=== PATIENT | male | born 1950 | race Caucasian/White ===

== ENCOUNTER 2017-06-17 13:55 | Inpatient (IN) | payer MEDICARE ==
[2017-06-17 14:13] VITALS: BMI 39.1
[2017-06-17 15:02] LABS: BASO # 0.1 K/uL (0.0-0.2); EOS # 0.4 K/uL (0.0-0.7); EOS % 5.7 % (0.0-4.0); HEMATOCRIT 42.9 % (35.0-51.0); LYMPH # 1.6 K/uL (1.0-4.3); LYMPH % 23.2 % (20.0-40.0); MEAN CELL VOLUME 84.2 fL (80.0-94.0); MEAN CORPUSCULAR HEMOGLOBIN 27.9 pg (27.0-31.0); MEAN CORPUSCULAR HGB CONC 33.2 g/dL (33.0-37.0); MONO # 0.6 K/uL (0.0-0.8); MONO % 8.1 % (0.0-10.0); NRBC % 0.1 % (0.0-2.0); RED CELL DISTRIBUTION WIDTH 14.2 % (11.5-14.5); WHITE BLOOD COUNT 7.1 K/uL (4.8-10.8)
[2017-06-17 15:15] LABS: CHLORIDE 100 mmol/L (98-107); POTASSIUM 4.3 mmol/L (3.6-5.2); SODIUM 139 mmol/L (132-148)
[2017-06-17 15:17] LABS: ALB/GLOB RATIO 1.1 (1.0-2.1); ALKALINE PHOSPHATASE 80 U/L (38-126); AST/SGOT 21 U/L (17-59); BILIRUBIN,TOTAL 0.4 mg/dL (0.2-1.3); CARBON DIOXIDE 27 mmol/L (22-30); GFR AFRICAN-AMERICAN > 60; TOTAL PROTEIN 7.8 g/dL (6.3-8.3)
[2017-06-17 15:18] LABS: ALT/SGPT 41 U/L (21-72); BLOOD UREA NITROGEN 16 mg/dL (9-20); CALCIUM 9.1 mg/dl (8.6-10.4); GLUCOSE,RANDOM 92 mg/dL (75-110)
--- NOTE | 2017-06-17 16:19 | C.PDOC ---
History Of Present Illness 67-year-old male, PMHx includes CAD s/p 6 stents (last stent 4 years ago), presents to the emergency department with complaints of chest pain. Patient states he was seen by cardiology, who is in [place], and told he has unstable angina and needs catheterization. Patient states that the hospital that his doctor sent him to did not accept his insurance. Patient states he was seen by who spoke with Dr Chandler, who is expecting him to be here. Patient denies any pain at this moment. Denies nausea/vomiting, arm pain, shortness of breath, back pain, dizziness or any other associated symptoms. No other complaints at this time. Magazine Editor Zeke Quintana MD. Time Seen by Provider: 06/17/17 14:28 Chief Complaint (Nursing): Chest Pain History Per: Patient History/Exam Limitations: no limitations Onset/Duration Of Symptoms: Days Current Symptoms Are (Timing): Still Present Severity: Moderate Past Medical History Reviewed: Historical Data, Nursing Documentation, Vital Signs Vital Signs: Last Vital Signs Temp 98.2 F 06/17/17 17:29 Pulse 63 06/17/17 17:29 Resp 20 06/17/17 17:29 BP 111/62 06/17/17 17:29 Pulse Ox 97 06/17/17 17:29 - Medical History PMH: Hyperlipidemia Surgical History: Coronary Stent (X2, 6 STENTS PER PATIENT) Family History: States: No Known Family Hx - Social History Hx Alcohol Use: No Hx Substance Use: No - Immunization History Hx Tetanus Toxoid Vaccination: No Hx Influenza Vaccination: Yes Hx Pneumococcal Vaccination: No Review Of Systems Except As Marked, All Systems Reviewed And Found Negative. Constitutional: Negative for: Fever, Chills Cardiovascular: Positive for: Chest Pain Respiratory: Negative for: Cough, Shortness of Breath Gastrointestinal: Negative for: Nausea, Vomiting, Abdominal Pain Musculoskeletal: Negative for: Back Pain Physical Exam - Physical Exam Appears: Non-toxic, No Acute Distress Skin: Warm, Dry, No Rash Head: Atraumatic, Normacephalic Eye(s): bilateral: Normal Inspection, PERRL, EOMI Nose: Normal Oral Mucosa: Moist Lips: Normal Appearing Neck: Normal ROM Cardiovascular: Rhythm Regular Respiratory: Normal Breath Sounds, No Accessory Muscle Use Back: Normal Inspection Extremity: Normal ROM Neurological/Psych: Oriented x3, Normal Speech ED Course And Treatment - Laboratory Results Result Diagrams: 06/17/17 14:44 06/17/17 14:44 ECG: Interpreted By Me, Viewed By Me ECG Rhythm: Sinus Rhythm ECG Interpretation: No Acute Changes Interpretation Of ECG: T wave abnormality in lateral leads. O2 Sat by Pulse Oximetry: 98 Progress Note: Case was d/w who accepted patient to [facility] for observation. Disposition - Disposition Disposition: HOSPITALIZED Disposition Time: 16:19 Condition: FAIR - Clinical Impression Clinical Impression: Chest pain, Unstable angina - Scribe Statement The provider has reviewed the documentation as recorded by the Scribe (Jono Christina) All medical record entries made by the Scribe were at my direction and personally dictated by me. I have reviewed the chart and agree that the record accurately reflects my personal performance of the history, physical exam, medical decision making, and the department course for this patient. I have also personally directed, reviewed, and agree with the discharge instructions and disposition.
--- NOTE | 2017-06-17 16:36 | RAD ---
PROCEDURE: CHEST RADIOGRAPH, 1 VIEW HISTORY: CP COMPARISON: None available. FINDINGS: LUNGS: Clear. PLEURA: No pneumothorax or pleural fluid seen. CARDIOVASCULAR: No radiographic findings to suggest acute or significant cardiovascular disease. OSSEOUS STRUCTURES: No significant abnormalities. VISUALIZED UPPER ABDOMEN: Normal. OTHER FINDINGS: None. IMPRESSION: No active disease. Please note: No preliminary report/ innterpretation of this examination provided by emergency department personnel.
[2017-06-17 17:02] LABS: RBC URINE 2 /hpf (0-3); URINE BILIRUBIN NEGATIVE (NEGATIVE); URINE COLOR Yellow (YELLOW); URINE GLUCOSE (UA) NORMAL (Normal); URINE KETONE NEGATIVE (NEGATIVE); URINE LEUKOCYTE ESTERASE NEG Leu/uL (Negative); URINE PROTEIN NEGATIVE (NEGATIVE); URINE UROBILINOGEN NORMAL mg/dL (0.2-1.0); WBC URINE < 1 /hpf (0-5)
[2017-06-17 17:13] LABS: URINE BLOOD TRACE (NEGATIVE)
--- NOTE | 2017-06-17 17:37 | CP.PCM.HP ---
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 Negrete 67M presents with Past medical history of 6 stent placed (2013 last stent placement) Patient states the chest pain comes and goes. Occurs after eating for "seconds" and when walking a lot, but when he takes Nitroglycerin, the pain goes away. Patient admits to stable angina brought forth with exertion, but better with rest. 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 Primary Care doctor Dr. Quintana sent patient to Dr. Chandler. Dr. Chandler made aware of patient's admission to the hospital. Dr. Chandler was consulted. Patient states last echocardiogram was 2 weeks ago and that the ER has the papers. Patient's last meal today was at 1pm. Patient denies Fever, chills, headache, vision changes, chest pain (at this residents time of visit), shortness of breath. Patient denies nausea, vomiting, diarrhea, constipation PMH: denies any other than the stent placement. upon review of records: CAD, HTN, HLD Social history: patient denies alcohol, patient smokes 10 cigarettes a day for 4 years Surgeries: stent placement x 6 (last is 2012) PMD: Dr. Quintana Present on Admission - Present on Admission Any Indicators Present on Admission: No History of DVT/PE: No History of Uncontrolled Diabetes: No Urinary Catheter: No Decubitus Ulcer Present: No Past Patient History - Past Social History Smoking Status: Light Smoker < 10 Cigarettes Daily - CARDIAC Hx Angina: Yes - PSYCHIATRIC Hx Substance Use: No - SURGICAL HISTORY Hx Coronary Stent: Yes (X2, 6 STENTS PER PATIENT) - ANESTHESIA Hx Anesthesia: Yes Hx Anesthesia Reactions: No Meds Allergies/Adverse Reactions: Allergies Allergy/AdvReac Type Severity Reaction Status Date / Time No Known Allergies Allergy Verified 06/19/17 09:29 Physical Exam - Constitutional Appears: Non-toxic - Head Exam Head Exam: NORMAL INSPECTION - Eye Exam Eye Exam: EOMI, Normal appearance - ENT Exam ENT Exam: Mucous Membranes Moist - Neck Exam Neck exam: Positive for: Full Rom. Negative for: Tenderness - Respiratory Exam Respiratory Exam: NORMAL BREATHING PATTERN. absent: Accessory Muscle Use, Respiratory Distress - Cardiovascular Exam Cardiovascular Exam: REGULAR RHYTHM. absent: Bradycardia, Tachycardia - GI/Abdominal Exam GI & Abdominal Exam: Normal Bowel Sounds, Soft. absent: Tenderness - Extremities Exam Extremities exam: Positive for: full ROM, normal inspection. Negative for: joint swelling, pedal edema - Neurological Exam Neurological exam: Alert, CN II-XII Intact, Oriented x3 - Skin Skin Exam: Dry, Intact, Normal Color, Warm Results - Vital Signs Recent Vital Signs: Last Vital Signs Temp 98.2 F 06/17/17 17:29 Pulse 63 06/17/17 17:29 Resp 20 06/17/17 17:29 BP 111/62 06/17/17 17:29 Pulse Ox 97 06/17/17 17:29 - Labs Result Diagrams: 06/17/17 14:44 06/17/17 14:44 Labs: Laboratory Results - last 24 hr 06/17/17 06/17/17 06/17/17 14:44 14:44 14:49 WBC 7.1 RBC 5.09 Hgb 14.2 Hct 42.9 MCV 84.2 MCH 27.9 MCHC 33.2 RDW 14.2 Plt Count 259 MPV 9.0 Neut % (Auto) 62.0 Lymph % (Auto) 23.2 [place] % (Auto) 8.1 Eos % (Auto) 5.7 H Baso % (Auto) 1.0 Neut # 4.4 Lymph # 1.6 [place] # 0.6 Eos # 0.4 Baso # 0.1 PT 10.8 INR 1.0 APTT 30 Sodium 139 Potassium 4.3 Chloride 100 Carbon Dioxide 27 Anion Gap 17 BUN 16 Creatinine 0.8 Est GFR ( Amer) > 60 Est GFR (Non-Af Amer) > 60 Random Glucose 92 Calcium 9.1 Total Bilirubin 0.4 AST 21 ALT 41 Alkaline Phosphatase 80 Total Creatine Kinase 69 CK-MB (Mass) 0.81 Troponin I < 0.0120 Total Protein 7.8 Albumin 4.2 Globulin 3.7 Albumin/Globulin Ratio 1.1 Urine Color Urine Clarity Urine pH Ur Specific [place] Urine Protein Urine Glucose (UA) Urine Ketones Urine Blood Urine Nitrate Urine Bilirubin Urine Urobilinogen Ur Leukocyte Esterase Urine WBC (Auto) Urine RBC (Auto) 06/17/17 17:13 WBC RBC Hgb Hct MCV MCH MCHC RDW Plt Count MPV Neut % (Auto) Lymph % (Auto) [place] % (Auto) Eos % (Auto) Baso % (Auto) Neut # Lymph # [place] # Eos # Baso # PT INR APTT Sodium Potassium Chloride Carbon Dioxide Anion Gap BUN Creatinine Est GFR ( Amer) Est GFR (Non-Af Amer) Random Glucose Calcium Total Bilirubin AST ALT Alkaline Phosphatase Total Creatine Kinase CK-MB (Mass) Troponin I Total Protein Albumin Globulin Albumin/Globulin Ratio Urine Color Yellow Urine Clarity Clear Urine pH 6.0 Ur Specific [place] 1.017 Urine Protein Negative Urine Glucose (UA) Normal Urine Ketones Negative Urine Blood Trace H Urine Nitrate Negative Urine Bilirubin Negative Urine Urobilinogen Normal Ur Leukocyte Esterase Neg Urine WBC (Auto) < 1 Urine RBC (Auto) 2 Assessment & Plan - Assessment and Plan (Free Text) Assessment: CAD, history of 6 stent placements, with Stable Angina Xray was taken in ED no active disease noted Continue home medication ASA 81mg POQD Continue home medication Nitroglycern 0.4mg Tab Smoking history 10 cig/day 40 years encouraged for smoking cessation Patient states he knows he has to quit, but he currently does not plan to HLD Continue home medication Rosuvastatin 20mg POQD HTN Continue home medicationLisopril 2.5 mg POQD Continue home medication Metoprolol Succinate 50mg POQD Continue home medication Amlodipine 5 mg POQD Prophylaxis DVT risk assessment, patient is on ASA 81mg POQD, continue home medication Clopidogrel 75 mg POQD GI: spoke with cardiology consult Dr. Chandler 18:00 Cath tomorrow in the afternoon per Dr. Chandler. Hold heparin 5000 SC until tomorrow. NPO after breakfast. No food given after 8 am. Nursing communication ordered to not give food after 8 am. - Date & Time Date: 06/17/17 Time: 18:19 <Kevin Negrete - Last Filed: 06/25/17 07:04> Results - Vital Signs Recent Vital Signs: Last Vital Signs Temp 98 F 06/20/17 08:37 Pulse 66 06/20/17 08:37 Resp 20 06/20/17 08:37 BP 102/62 06/20/17 08:37 Pulse Ox 97 10/11/17 08:37 - Labs Result Diagrams: 06/19/17 08:50 06/19/17 08:50 Attending/Attestation - Attestation I have personally seen and examined this patient.: Yes I have fully participated in the care of the patient.: Yes I have reviewed all pertinent clinical information: Yes
[2017-06-17 20:11] LABS: CHOLESTEROL 162 mg/dL (0-199)
--- NOTE | 2017-06-17 20:20 | CP.PCM.CON ---
History of Present Illness - History of Present Illness History of Present Illness: CC: Chest pain with minimalexertion 67M M with hx of CAD s/p multiplr stents, HTN, Obesity presents with chest tightness with minimal exertion. Goes away with rest and SL NTG pills Patient denies Fever, chills, headache, vision changes, chest pain (at this residents time of visit), shortness of breath. Patient denies nausea, vomiting, diarrhea, constipation PMH: denies any other than the stent placement. upon review of records: CAD, HTN, HLD Social history: patient denies alcohol, patient smokes 10 cigarettes a day for 4 years Surgeries: stent placement x 6 (last is 2012) PMD: Dr. Quintana Present on Admission - Present on Admission Any Indicators Present on Admission: No History of DVT/PE: No History of Uncontrolled Diabetes: No Urinary Catheter: No Decubitus Ulcer Present: No Meds Allergies/Adverse Reactions: Allergies Allergy/AdvReac Type Severity Reaction Status Date / Time No Known Allergies Allergy Verified 06/17/17 14:12 Physical Exam - Constitutional Appears: Non-toxic - Head Exam Head Exam: NORMAL INSPECTION - Eye Exam Eye Exam: EOMI, Normal appearance - ENT Exam ENT Exam: Mucous Membranes Moist - Neck Exam Neck exam: Positive for: Full Rom. Negative for: Tenderness - Respiratory Exam Respiratory Exam: NORMAL BREATHING PATTERN. absent: Accessory Muscle Use, Respiratory Distress - Cardiovascular Exam Cardiovascular Exam: REGULAR RHYTHM. absent: Bradycardia, Tachycardia - GI/Abdominal Exam GI & Abdominal Exam: Normal Bowel Sounds, Soft. absent: Tenderness - Extremities Exam Extremities exam: Positive for: full ROM, normal inspection. Negative for: joint swelling, pedal edema - Neurological Exam Neurological exam: Alert, CN II-XII Intact, Oriented x3 - Skin Skin Exam: Dry, Intact, Normal Color, Warm Past Patient History - Past Social History Smoking Status: Light Smoker < 10 Cigarettes Daily - CARDIAC Hx Angina: Yes - PSYCHIATRIC Hx Substance Use: No - SURGICAL HISTORY Hx Coronary Stent: Yes (X2, 6 STENTS PER PATIENT) - ANESTHESIA Hx Anesthesia: Yes Hx Anesthesia Reactions: No Meds Allergies/Adverse Reactions: Allergies Allergy/AdvReac Type Severity Reaction Status Date / Time No Known Allergies Allergy Verified 06/17/17 14:12 - Medications Medications: Current Medications Amlodipine Besylate (Norvasc) 5 mg PO DAILY [facility] Aspirin (Ecotrin) 81 mg PO DAILY [facility] Clopidogrel Bisulfate (Plavix) 75 mg PO DAILY [facility] Famotidine (Pepcid) 20 mg PO BID [facility] Lisinopril (Zestril) 2.5 mg PO DAILY [facility] Metoprolol Succinate (Toprol Xl) 50 mg PO DAILY [facility] Nitroglycerin (Nitrostat Sl Tab) 0.4 mg SL Q5MIN PRN PRN Reason: Pain, moderate (4-7) Rosuvastatin Calcium (Crestor) 20 mg PO [facility] Results - Vital Signs Recent Vital Signs: Last Vital Signs Temp 98.5 F 06/17/17 19:37 Pulse 67 06/17/17 19:37 Resp 12 06/17/17 19:37 BP 118/74 06/17/17 19:37 Pulse Ox 97 06/17/17 19:37 - Labs Result Diagrams: 06/17/17 14:44 06/17/17 14:44 Labs: Laboratory Results - last 24 hr 06/17/17 06/17/17 06/17/17 14:44 14:44 14:49 WBC 7.1 RBC 5.09 Hgb 14.2 Hct 42.9 MCV 84.2 MCH 27.9 MCHC 33.2 RDW 14.2 Plt Count 259 MPV 9.0 Neut % (Auto) 62.0 Lymph % (Auto) 23.2 [place] % (Auto) 8.1 Eos % (Auto) 5.7 H Baso % (Auto) 1.0 Neut # 4.4 Lymph # 1.6 [place] # 0.6 Eos # 0.4 Baso # 0.1 PT 10.8 INR 1.0 APTT 30 Sodium 139 Potassium 4.3 Chloride 100 Carbon Dioxide 27 Anion Gap 17 BUN 16 Creatinine 0.8 Est GFR ( Amer) > 60 Est GFR (Non-Af Amer) > 60 Random Glucose 92 Calcium 9.1 Total Bilirubin 0.4 AST 21 ALT 41 Alkaline Phosphatase 80 Total Creatine Kinase 69 CK-MB (Mass) 0.81 Troponin I < 0.0120 Total Protein 7.8 Albumin 4.2 Globulin 3.7 Albumin/Globulin Ratio 1.1 Urine Color Urine Clarity Urine pH Ur Specific [place] Urine Protein Urine Glucose (UA) Urine Ketones Urine Blood Urine Nitrate Urine Bilirubin Urine Urobilinogen Ur Leukocyte Esterase Urine WBC (Auto) Urine RBC (Auto) 06/17/17 17:13 WBC RBC Hgb Hct MCV MCH MCHC RDW Plt Count MPV Neut % (Auto) Lymph % (Auto) [place] % (Auto) Eos % (Auto) Baso % (Auto) Neut # Lymph # [place] # Eos # Baso # PT INR APTT Sodium Potassium Chloride Carbon Dioxide Anion Gap BUN Creatinine Est GFR ( Amer) Est GFR (Non-Af Amer) Random Glucose Calcium Total Bilirubin AST ALT Alkaline Phosphatase Total Creatine Kinase CK-MB (Mass) Troponin I Total Protein Albumin Globulin Albumin/Globulin Ratio Urine Color Yellow Urine Clarity Clear Urine pH 6.0 Ur Specific [place] 1.017 Urine Protein Negative Urine Glucose (UA) Normal Urine Ketones Negative Urine Blood Trace H Urine Nitrate Negative Urine Bilirubin Negative Urine Urobilinogen Normal Ur Leukocyte Esterase Neg Urine WBC (Auto) < 1 Urine RBC (Auto) 2 Assessment & Plan - Assessment and Plan (Free Text) Assessment: CAD, history of 6 stent placements, and now Unstable Angina ASA, Plavix, b blockers, Oxygen Give the story of unstable angina will cath him directly Smoking history 10 cig/day 40 years encouraged for smoking cessation Patient states he knows he has to quit, but he currently does not plan to HLD Continue home medication Rosuvastatin 20mg POQD HTN Continue home medicationLisopril 2.5 mg POQD Continue home medication Metoprolol Succinate 50mg POQD Continue home medication Amlodipine 5 mg POQD Prophylaxis DVT risk assessment, patient is on ASA 81mg POQD, continue home medication Clopidogrel 75 mg POQD GI:
[2017-06-18 08:05] LABS: BASO % 0.6 % (0.0-2.0); EOS # 0.3 K/uL (0.0-0.7); EOS % 5.4 % (0.0-4.0); HEMATOCRIT 42.6 % (35.0-51.0); LYMPH # 1.4 K/uL (1.0-4.3); LYMPH % 21.1 % (20.0-40.0); MEAN CELL VOLUME 84.1 fL (80.0-94.0); MEAN CORPUSCULAR HEMOGLOBIN 28.2 pg (27.0-31.0); MEAN CORPUSCULAR HGB CONC 33.6 g/dL (33.0-37.0); MONO # 0.5 K/uL (0.0-0.8); MONO % 7.1 % (0.0-10.0); NRBC % 0.1 % (0.0-2.0); RED CELL DISTRIBUTION WIDTH 14.2 % (11.5-14.5); WHITE BLOOD COUNT 6.5 K/uL (4.8-10.8)
[2017-06-18 08:20] LABS: CHLORIDE 98 mmol/L (98-107); POTASSIUM 4.6 mmol/L (3.6-5.2); SODIUM 137 mmol/L (132-148)
[2017-06-18 08:22] LABS: BILIRUBIN,TOTAL 0.7 mg/dL (0.2-1.3); GFR AFRICAN-AMERICAN > 60
[2017-06-18 08:23] LABS: ALB/GLOB RATIO 1.3 (1.0-2.1); ALKALINE PHOSPHATASE 64 U/L (38-126); ALT/SGPT 39 U/L (21-72); AST/SGOT 18 U/L (17-59); BLOOD UREA NITROGEN 17 mg/dL (9-20); CALCIUM 8.9 mg/dl (8.6-10.4); CARBON DIOXIDE 29 mmol/L (22-30); GLUCOSE,RANDOM 95 mg/dL (75-110); TOTAL PROTEIN 7.7 g/dL (6.3-8.3)
[2017-06-18] MEDS ORDERED: Pneumococcal 23-Valent Vaccine IM ONE (10:00)
[2017-06-18] MEDS: Metoprolol Succinate 50 mg XL Tab PO SCH (10:14)
[2017-06-18] MEDS: Enoxaparin 40 mg Syringe SC SCH (11:00)
[2017-06-18] MEDS ORDERED: Iohexol 350mg/ml 100 ML ONE ×2 (14:56→15:22)
[2017-06-18] MEDS ORDERED: Midazolam 2 MG/2 ML VIAL ONE ×2 (14:56→16:28)
[2017-06-18] MEDS ORDERED: Lidocaine 2% Inj (20ml) ONE (15:14)
[2017-06-18] MEDS ORDERED: Sodium Chloride 0.45% 1,000 ML IV SCH (15:45)
--- NOTE | 2017-06-18 16:49 | CP.PCM.PN ---
<Lisa Soto - Last Filed: 06/18/17 16:34> Subjective - Date & Time of Evaluation Date of Evaluation: 06/18/17 Time of Evaluation: 09:00 - Subjective Subjective: Medicine Note for Dr. Reeves Patient was seen and examined at bedside. Patient is s/p cardiac cath. Plan for PCI placement tomorrow at [place]. No acute complaints. Denied fever, chills, headache, chest pain, abdominal pain, n/v/d/c, or urinary symptoms. Objective - Vital Signs/Intake and Output Vital Signs (last 24 hours): Temp Pulse Resp BP Pulse Ox 97.9 F 67 20 123/79 93 L 06/18/17 08:10 06/18/17 12:00 06/18/17 08:10 06/18/17 08:10 06/18/17 08:10 Intake and Output: 06/18/17 06/18/17 06:59 18:59 Intake Total 100 Balance 100 - Medications Medications: Current Medications Amlodipine Besylate (Norvasc) 5 mg PO DAILY [facility] Last Admin: 06/18/17 10:14 Dose: 5 mg Aspirin (Ecotrin) 81 mg PO DAILY [facility] Last Admin: 06/18/17 10:13 Dose: 81 mg Clopidogrel Bisulfate (Plavix) 75 mg PO DAILY [facility] Last Admin: 06/18/17 10:14 Dose: 75 mg Enoxaparin Sodium (Lovenox) 40 mg SC DAILY [facility] Last Admin: 06/18/17 11:00 Dose: Not Given Famotidine (Pepcid) 20 mg PO BID [facility] Last Admin: 06/18/17 10:14 Dose: 20 mg Sodium Chloride (Sodium Chloride 0.45%) 1,000 mls @ 60 mls/hr IV .[id number] [facility] Stop: 06/19/17 04:00 Insulin Human Regular (Novolin R) 0 unit SC ACHS [facility] PRN Reason: Protocol Lisinopril (Zestril) 2.5 mg PO DAILY [facility] Last Admin: 06/18/17 10:14 Dose: 2.5 mg Metoprolol Succinate (Toprol Xl) 50 mg PO DAILY [facility] Last Admin: 06/18/17 10:14 Dose: 50 mg Nicotine (Nicoderm Cq) 1 patch TD DAILY [facility] Nitroglycerin (Nitrostat Sl Tab) 0.4 mg SL Q5MIN PRN PRN Reason: Pain, moderate (4-7) Rosuvastatin Calcium (Crestor) 20 mg PO HS [facility] - Labs Labs: 06/18/17 07:52 06/18/17 07:52 PT 10.8 SECONDS (9.7-12.2) 06/17/17 14:49 INR 1.0 06/17/17 14:49 APTT 33 SECONDS (21-34) 06/18/17 07:52 - Additional Findings Additional findings: - Constitutional Appears: Non-toxic - Head Exam Head Exam: NORMAL INSPECTION - Eye Exam Eye Exam: EOMI, Normal appearance - ENT Exam ENT Exam: Mucous Membranes Moist - Neck Exam Neck exam: Positive for: Full Rom. Negative for: Tenderness - Respiratory Exam Respiratory Exam: NORMAL BREATHING PATTERN. absent: Accessory Muscle Use, Respiratory Distress - Cardiovascular Exam Cardiovascular Exam: REGULAR RHYTHM. absent: Bradycardia, Tachycardia - GI/Abdominal Exam GI & Abdominal Exam: Normal Bowel Sounds, Soft. absent: Tenderness - Extremities Exam Extremities exam: Positive for: full ROM, normal inspection. Negative for: joint swelling, pedal edema - Neurological Exam Neurological exam: Alert, CN II-XII Intact, Oriented x3 - Skin Skin Exam: Dry, Intact, Normal Color, Warm Assessment and Plan - Assessment and Plan (Free Text) Plan: Stable Angina * S/P Cardiac Cath with Dr. Chandler today * Plan for PCL stent placement tomorrow Sunday06/19/17 at [place]. Patient will return to [facility] after the procedure. Hx of CAD s/p 6 stents * ASA 81mg POQD, Clopidogrel 75 mg POQD DM * Newly diagnosed * Hga1c: 6.6 * Accuchecks * ISS-low HLD * Lipid panel: T, Cholesterol 162, LDL 127, HDL 31 * Continue home medication Rosuvastatin 20mg POQD HTN * Continue home medication Lisinopril 2.5 mg POQD, Metoprolol Succinate 50mg POQD, Amlodipine 5 mg POQD Hx of Tobacco Abuse * Smoking cessation encouraged * 10 cig/day 40 years * Nicotine patch Prophylactic Measures * GI PPX: Pepcid 20mg PO BID * DVT PPX: SCDs, held due to cardiac cath * Heart Healthy/ moderate carbs DW OMAR Hernandez DO, PGY-1 <Catina Hannah - Last Filed: 06/18/17 18:08> Objective - Vital Signs/Intake and Output Vital Signs (last 24 hours): Temp Pulse Resp BP Pulse Ox 97.9 F 67 20 123/79 93 L 06/18/17 08:10 06/18/17 12:00 06/18/17 08:10 06/18/17 08:10 06/18/17 08:10 Intake and Output: 06/18/17 06/18/17 06:59 18:59 Intake Total 100 Balance 100 - Medications Medications: Current Medications Amlodipine Besylate (Norvasc) 5 mg PO DAILY [facility] Last Admin: 06/18/17 10:14 Dose: 5 mg Aspirin (Ecotrin) 81 mg PO DAILY [facility] Last Admin: 06/18/17 10:13 Dose: 81 mg Clopidogrel Bisulfate (Plavix) 75 mg PO DAILY [facility] Last Admin: 06/18/17 10:14 Dose: 75 mg Enoxaparin Sodium (Lovenox) 40 mg SC DAILY [facility] Last Admin: 06/18/17 11:00 Dose: Not Given Famotidine (Pepcid) 20 mg PO BID [facility] Last Admin: 06/18/17 10:14 Dose: 20 mg Sodium Chloride (Sodium Chloride 0.45%) 1,000 mls @ 60 mls/hr IV .[id number] [facility] Stop: 06/19/17 04:00 Insulin Human Regular (Novolin R) 0 unit SC ACHS [facility] PRN Reason: Protocol Lisinopril (Zestril) 2.5 mg PO DAILY [facility] Last Admin: 06/18/17 10:14 Dose: 2.5 mg Metoprolol Succinate (Toprol Xl) 50 mg PO DAILY [facility] Last Admin: 06/18/17 10:14 Dose: 50 mg Nicotine (Nicoderm Cq) 1 patch TD DAILY [facility] Nitroglycerin (Nitrostat Sl Tab) 0.4 mg SL Q5MIN PRN PRN Reason: Pain, moderate (4-7) Rosuvastatin Calcium (Crestor) 20 mg PO HS [facility] - Labs Labs: 06/18/17 07:52 06/18/17 07:52 PT 10.8 SECONDS (9.7-12.2) 06/17/17 14:49 INR 1.0 06/17/17 14:49 APTT 33 SECONDS (21-34) 06/18/17 07:52 Attending/Attestation - Attestation I have personally seen and examined this patient.: Yes I have fully participated in the care of the patient.: Yes I have reviewed all pertinent clinical information, including history, physical exam and plan: Yes Notes (Text): 06/18/17 17:57 67 years old male with past history of stent was admitted for chest pain.He was seen and examined with resident this morning.He denied pain on examination.s/p Cath with stenosis need PCI tomorrow at [facility].Official report of cath pending 1. Angina pain and s/p stent * S/P Cardiac Cath with Dr. Chandler today .official report pending.Going for stent tomorrow at [facility] Continue ASA 81mg POQD, Clopidogrel 75 mg POQD 2. DM-new onset.Start on oral meds on discharge and follow primary care * 3.HYpertension Continue home medication Lisinopril 2.5 mg POQD, Metoprolol Succinate 50mg POQD, Amlodipine 5 mg POQD Hx of Tobacco AbuseSmoking cessation encouraged * Prophylactic Measures GI PPX: Pepcid 20mg PO BID DVT PPX: SCDs, held due to cardiac cath
--- NOTE | 2017-06-18 17:46 | CP.PCM.PN ---
Subjective - Date & Time of Evaluation Date of Evaluation: 06/18/17 Time of Evaluation: 17:44 - Subjective Subjective: Patient s/p Cath L Cx: 99% instent stenosis For PCI at [place] tomorrow Scheduled for procedure at 4pm Patient will come back to [facility] after the PCI Objective - Vital Signs/Intake and Output Vital Signs (last 24 hours): Temp Pulse Resp BP Pulse Ox 97.9 F 67 20 123/79 93 L 06/18/17 08:10 06/18/17 12:00 06/18/17 08:10 06/18/17 08:10 06/18/17 08:10 Intake and Output: 06/18/17 06/18/17 06:59 18:59 Intake Total 100 Balance 100 - Medications Medications: Current Medications Amlodipine Besylate (Norvasc) 5 mg PO DAILY [facility] Last Admin: 06/18/17 10:14 Dose: 5 mg Aspirin (Ecotrin) 81 mg PO DAILY [facility] Last Admin: 06/18/17 10:13 Dose: 81 mg Clopidogrel Bisulfate (Plavix) 75 mg PO DAILY [facility] Last Admin: 06/18/17 10:14 Dose: 75 mg Enoxaparin Sodium (Lovenox) 40 mg SC DAILY [facility] Last Admin: 06/18/17 11:00 Dose: Not Given Famotidine (Pepcid) 20 mg PO BID [facility] Last Admin: 06/18/17 10:14 Dose: 20 mg Sodium Chloride (Sodium Chloride 0.45%) 1,000 mls @ 60 mls/hr IV .[id number] [facility] Stop: 06/19/17 04:00 Insulin Human Regular (Novolin R) 0 unit SC ACHS [facility] PRN Reason: Protocol Lisinopril (Zestril) 2.5 mg PO DAILY [facility] Last Admin: 06/18/17 10:14 Dose: 2.5 mg Metoprolol Succinate (Toprol Xl) 50 mg PO DAILY [facility] Last Admin: 06/18/17 10:14 Dose: 50 mg Nicotine (Nicoderm Cq) 1 patch TD DAILY [facility] Nitroglycerin (Nitrostat Sl Tab) 0.4 mg SL Q5MIN PRN PRN Reason: Pain, moderate (4-7) Rosuvastatin Calcium (Crestor) 20 mg PO HS [facility] - Labs Labs: 06/18/17 07:52 06/18/17 07:52 PT 10.8 SECONDS (9.7-12.2) 06/17/17 14:49 INR 1.0 06/17/17 14:49 APTT 33 SECONDS (21-34) 06/18/17 07:52
--- NOTE | 2017-06-18 21:41 | CARD ---
APPROVED REPORT EKG Measurement Heart [id number] <Conclusion> Normal sinus rhythm Left anterior fascicular block Minimal voltage criteria for LVH, may be normal variant T wave abnormality, consider lateral ischemia Abnormal ECG
[2017-06-18] MEDS: (Novolin R) Insulin Human Regular 100 units/ml vial SC SCH (22:27)
[2017-06-19] MEDS: (Novolin R) Insulin Human Regular 100 units/ml vial SC SCH ×4 (08:16→21:57)
[2017-06-19 09:03] LABS: BASO % 0.4 % (0.0-2.0); EOS # 0.3 K/uL (0.0-0.7); EOS % 4.1 % (0.0-4.0); HEMATOCRIT 39.9 % (35.0-51.0); LYMPH # 1.3 K/uL (1.0-4.3); LYMPH % 15.1 % (20.0-40.0); MEAN CORPUSCULAR HEMOGLOBIN 28.1 pg (27.0-31.0); MEAN CORPUSCULAR HGB CONC 33.5 g/dL (33.0-37.0); MEAN PLATELET VOLUME 9.3 fL (7.2-11.7); MONO # 0.7 K/uL (0.0-0.8); MONO % 7.6 % (0.0-10.0); WHITE BLOOD COUNT 8.6 K/uL (4.8-10.8)
[2017-06-19 09:36] LABS: CHLORIDE 98 mmol/L (98-107)
[2017-06-19 09:37] LABS: POTASSIUM 4.1 mmol/L (3.6-5.2); SODIUM 134 mmol/L (132-148)
[2017-06-19 09:39] LABS: ALB/GLOB RATIO 1.3 (1.0-2.1); AST/SGOT 23 U/L (17-59); BILIRUBIN,TOTAL 0.6 mg/dL (0.2-1.3); CARBON DIOXIDE 26 mmol/L (22-30); GFR AFRICAN-AMERICAN > 60
[2017-06-19 09:40] LABS: ALKALINE PHOSPHATASE 68 U/L (38-126); ALT/SGPT 46 U/L (21-72); BLOOD UREA NITROGEN 17 mg/dL (9-20); CALCIUM 8.5 mg/dl (8.6-10.4); GLUCOSE,RANDOM 94 mg/dL (75-110); MAGNESIUM 1.9 mg/dL (1.6-2.3); PHOSPHOROUS 3.7 mg/dL (2.5-4.5)
[2017-06-19] MEDS: Metoprolol Succinate 50 mg XL Tab PO SCH (11:09)
[2017-06-19] MEDS: Enoxaparin 40 mg Syringe SC SCH (11:10)
--- NOTE | 2017-06-19 12:54 | CP.PCM.PN ---
Addendum entered and electronically signed by Lisa Soto DO 06/19/17 12:55 : Stent to be placed for 99% stenosis in Left circumflex artery. Original Note: <Lisa Soto - Last Filed: 06/19/17 12:50> Subjective - Date & Time of Evaluation Date of Evaluation: 06/19/17 Time of Evaluation: 09:00 - Subjective Subjective: Medicine Note for Dr. Reeves Patient was seen and examined at bedside. Patient is s/p cardiac cath. Plan for PCI placement today at [place], patient will return to [facility] afterwards. No acute complaints. Denied fever, chills, headache, chest pain, abdominal pain, n/v/d/c, or urinary symptoms. Objective - Vital Signs/Intake and Output Vital Signs (last 24 hours): Temp Pulse Resp BP Pulse Ox 98 F 69 20 123/69 95 06/19/17 08:00 06/19/17 12:00 06/19/17 08:00 06/19/17 08:00 06/19/17 08:00 - Medications Medications: Current Medications Amlodipine Besylate (Norvasc) 5 mg PO DAILY [facility] Last Admin: 06/19/17 11:09 Dose: 5 mg Aspirin (Ecotrin) 81 mg PO DAILY [facility] Last Admin: 06/19/17 11:09 Dose: 81 mg Clopidogrel Bisulfate (Plavix) 75 mg PO DAILY [facility] Last Admin: 06/19/17 11:09 Dose: 75 mg Enoxaparin Sodium (Lovenox) 40 mg SC DAILY [facility] Last Admin: 06/19/17 11:10 Dose: 40 mg Famotidine (Pepcid) 20 mg PO BID [facility] Last Admin: 06/19/17 11:10 Dose: 20 mg Insulin Human Regular (Novolin R) 0 unit SC [facility] PRN Reason: Protocol Last Admin: 06/19/17 08:16 Dose: Not Given Lisinopril (Zestril) 2.5 mg PO DAILY [facility] Last Admin: 06/19/17 11:09 Dose: 2.5 mg Metoprolol Succinate (Toprol Xl) 50 mg PO DAILY [facility] Last Admin: 06/19/17 11:09 Dose: 50 mg Nicotine (Nicoderm Cq) 1 patch TD DAILY [facility] Last Admin: 06/19/17 11:10 Dose: 1 patch Nitroglycerin (Nitrostat Sl Tab) 0.4 mg SL Q5MIN PRN PRN Reason: Pain, moderate (4-7) Rosuvastatin Calcium (Crestor) 20 mg PO HS [facility] Last Admin: 06/18/17 22:03 Dose: 20 mg - Labs Labs: 06/19/17 08:50 06/19/17 08:50 PT 10.8 SECONDS (9.7-12.2) 06/17/17 14:49 INR 1.0 06/17/17 14:49 APTT 33 SECONDS (21-34) 06/18/17 07:52 - Additional Findings Additional findings: - Constitutional Appears: Non-toxic - Head Exam Head Exam: NORMAL INSPECTION - Eye Exam Eye Exam: EOMI, Normal appearance - ENT Exam ENT Exam: Mucous Membranes Moist - Neck Exam Neck exam: Positive for: Full Rom. Negative for: Tenderness - Respiratory Exam Respiratory Exam: NORMAL BREATHING PATTERN. absent: Accessory Muscle Use, Respiratory Distress - Cardiovascular Exam Cardiovascular Exam: REGULAR RHYTHM. absent: Bradycardia, Tachycardia - GI/Abdominal Exam GI & Abdominal Exam: Normal Bowel Sounds, Soft. absent: Tenderness - Extremities Exam Extremities exam: Positive for: full ROM, normal inspection. Negative for: joint swelling, pedal edema Right groin dressing C/D/I - Neurological Exam Neurological exam: Alert, CN II-XII Intact, Oriented x3 - Skin Skin Exam: Dry, Intact, Normal Color, Warm Assessment and Plan - Assessment and Plan (Free Text) Plan: Stable Angina * S/P Cardiac Cath with Dr. Chandler today * Plan for PCL stent placement today Sunday06/19/17 at [place]. Patient will return to [facility] after the procedure. Hx of CAD s/p 6 stents * ASA 81mg POQD, Clopidogrel 75 mg POQD DM * Newly diagnosed * Hga1c: 6.6 * Accuchecks * ISS-low * Will start on oral medications upon discharge HLD * Lipid panel: T, Cholesterol 162, LDL 127, HDL 31 * Continue home medication Rosuvastatin 20mg POQD HTN * Continue home medication Lisinopril 2.5 mg POQD, Metoprolol Succinate 50mg POQD, Amlodipine 5 mg POQD Hx of Tobacco Abuse * Smoking cessation encouraged * 10 cig/day 40 years * Nicotine patch Prophylactic Measures * GI PPX: Pepcid 20mg PO BID * DVT PPX: SCDs, lovenox held due to cardiac cath * Heart Healthy/ moderate carbs Disposition: Anticipate discharge tomorrow morning DW OMAR Hernandez DO, PGY-1 <Catina Hannah - Last Filed: 06/19/17 16:33> Objective - Vital Signs/Intake and Output Vital Signs (last 24 hours): Temp Pulse Resp BP Pulse Ox 98 F 72 96 H 114/72 95 06/19/17 13:33 06/19/17 13:33 06/19/17 13:33 06/19/17 13:33 06/19/17 08:00 Intake and Output: 06/19/17 06/19/17 06:59 18:59 Intake Total 460 Balance 460 - Medications Medications: Current Medications Amlodipine Besylate (Norvasc) 5 mg PO DAILY [facility] Last Admin: 06/19/17 11:09 Dose: 5 mg Aspirin (Ecotrin) 81 mg PO DAILY [facility] Last Admin: 06/19/17 11:09 Dose: 81 mg Clopidogrel Bisulfate (Plavix) 75 mg PO DAILY [facility] Last Admin: 06/19/17 11:09 Dose: 75 mg Enoxaparin Sodium (Lovenox) 40 mg SC DAILY [facility] Last Admin: 06/19/17 11:10 Dose: 40 mg Famotidine (Pepcid) 20 mg PO BID [facility] Last Admin: 06/19/17 11:10 Dose: 20 mg Insulin Human Regular (Novolin R) 0 unit SC [facility] PRN Reason: Protocol Last Admin: 06/19/17 13:01 Dose: Not Given Lisinopril (Zestril) 2.5 mg PO DAILY [facility] Last Admin: 06/19/17 11:09 Dose: 2.5 mg Metoprolol Succinate (Toprol Xl) 50 mg PO DAILY [facility] Last Admin: 06/19/17 11:09 Dose: 50 mg Nicotine (Nicoderm Cq) 1 patch TD DAILY [facility] Last Admin: 06/19/17 11:10 Dose: 1 patch Nitroglycerin (Nitrostat Sl Tab) 0.4 mg SL Q5MIN PRN PRN Reason: Pain, moderate (4-7) Rosuvastatin Calcium (Crestor) 20 mg PO HS [facility] Last Admin: 06/18/17 22:03 Dose: 20 mg - Labs Labs: 06/19/17 08:50 06/19/17 08:50 PT 10.8 SECONDS (9.7-12.2) 06/17/17 14:49 INR 1.0 06/17/17 14:49 APTT 33 SECONDS (21-34) 06/18/17 07:52 Attending/Attestation - Attestation I have personally seen and examined this patient.: Yes I have fully participated in the care of the patient.: Yes I have reviewed all pertinent clinical information, including history, physical exam and plan: Yes Notes (Text): Patient was seen and examined today morning with resident.sitting on chair,no complain,no chest pain. S/p Cardiac cath Lcx 99% block.He is going to [place] for PCI today. Excertional chest pain ,s/p cardiac cath with LCx 99% stenosis.Going for PCI today Hx of CAD s/p 6 stents ASA 81mg POQD, Clopidogrel 75 mg POQD DM Newly diagnosed ,Hga1c: 6.6 follow as an out pt,discuss about starting on oral meds upon discharge HLD * Continue home medication Rosuvastatin 20mg POQD HTN * Continue home medication Lisinopril 2.5 mg POQD, Metoprolol Succinate 50mg POQD, Amlodipine 5 mg POQD Hx of Tobacco Abuse * Smoking cessation encouraged * 10 cig/day 40 years * Nicotine patch Prophylactic Measures * GI PPX: Pepcid 20mg PO BID * DVT PPX: SCDs, lovenox held due to cardiac cath * Heart Healthy/ moderate carbs Disposition: Anticipate discharge tomorrow morning
--- NOTE | 2017-06-19 18:45 | CP.PCM.PN ---
Subjective - Date & Time of Evaluation Date of Evaluation: 06/19/17 Time of Evaluation: 18:43 - Subjective Subjective: Patient successful Drug Eluting stent placement of L CX Plavix 75 daily for 1 year ASA, Statin, REDDY I and b blockers for life If stable can d/c tomorrow afternoon F/U with Dr. Quintana and Dr. Chandler in 1-2 weeks Objective - Vital Signs/Intake and Output Vital Signs (last 24 hours): Temp Pulse Resp BP Pulse Ox 98 F 72 96 H 114/72 95 06/19/17 13:33 06/19/17 13:33 06/19/17 13:33 06/19/17 13:33 06/19/17 08:00 Intake and Output: 06/19/17 06/19/17 06:59 18:59 Intake Total 460 Balance 460 - Medications Medications: Current Medications Amlodipine Besylate (Norvasc) 5 mg PO DAILY [facility] Last Admin: 06/19/17 11:09 Dose: 5 mg Aspirin (Ecotrin) 81 mg PO DAILY [facility] Last Admin: 06/19/17 11:09 Dose: 81 mg Clopidogrel Bisulfate (Plavix) 75 mg PO DAILY [facility] Last Admin: 06/19/17 11:09 Dose: 75 mg Enoxaparin Sodium (Lovenox) 40 mg SC DAILY [facility] Last Admin: 06/19/17 11:10 Dose: 40 mg Famotidine (Pepcid) 20 mg PO BID [facility] Last Admin: 06/19/17 17:36 Dose: Not Given Insulin Human Regular (Novolin R) 0 unit SC [facility] PRN Reason: Protocol Last Admin: 06/19/17 16:12 Dose: Not Given Lisinopril (Zestril) 2.5 mg PO DAILY [facility] Last Admin: 06/19/17 11:09 Dose: 2.5 mg Metoprolol Succinate (Toprol Xl) 50 mg PO DAILY [facility] Last Admin: 06/19/17 11:09 Dose: 50 mg Nicotine (Nicoderm Cq) 1 patch TD DAILY [facility] Last Admin: 06/19/17 11:10 Dose: 1 patch Nitroglycerin (Nitrostat Sl Tab) 0.4 mg SL Q5MIN PRN PRN Reason: Pain, moderate (4-7) Rosuvastatin Calcium (Crestor) 20 mg PO HS [facility] Last Admin: 06/18/17 22:03 Dose: 20 mg - Labs Labs: 06/19/17 08:50 06/19/17 08:50 PT 10.8 SECONDS (9.7-12.2) 06/17/17 14:49 INR 1.0 06/17/17 14:49 APTT 33 SECONDS (21-34) 06/18/17 07:52
[2017-06-19] MEDS: Sodium Chloride 0.9% 1,000 ML IV SCH (23:18)
[2017-06-20] MEDS: Sodium Chloride 0.9% 1,000 ML IV SCH (00:15)
--- NOTE | 2017-06-20 07:00 | CP.PCM.DIS ---
Provider - Provider Date of Admission: 06/19/17 07:51 Attending physician: Kamlesh Church MD Consults: Cardio: Ramesh Time Spent in preparation of Discharge (in minutes): 55 Hospital Course - Lab Results Lab Results: Most Recent Lab Values WBC 8.6 K/uL (4.8-10.8) 06/19/17 08:50 RBC 4.75 Mil/uL (4.40-5.90) 06/19/17 08:50 Hgb 13.4 g/dL (12.0-18.0) 06/19/17 08:50 Hct 39.9 % (35.0-51.0) 06/19/17 08:50 MCV 84.0 fL (80.0-94.0) 06/19/17 08:50 MCH 28.1 pg (27.0-31.0) 06/19/17 08:50 MCHC 33.5 g/dL (33.0-37.0) 06/19/17 08:50 RDW 14.0 % (11.5-14.5) 06/19/17 08:50 Plt Count 222 K/uL (130-400) 06/19/17 08:50 MPV 9.3 fL (7.2-11.7) 06/19/17 08:50 Neut % (Auto) 72.8 % (50.0-75.0) 06/19/17 08:50 Lymph % (Auto) 15.1 % (20.0-40.0) L 06/19/17 08:50 Ward % (Auto) 7.6 % (0.0-10.0) 06/19/17 08:50 Eos % (Auto) 4.1 % (0.0-4.0) H 06/19/17 08:50 Baso % (Auto) 0.4 % (0.0-2.0) 06/19/17 08:50 Neut # 6.3 K/uL (1.8-7.0) 06/19/17 08:50 Lymph # 1.3 K/uL (1.0-4.3) 06/19/17 08:50 Ward # 0.7 K/uL (0.0-0.8) 06/19/17 08:50 Eos # 0.3 K/uL (0.0-0.7) 06/19/17 08:50 Baso # 0.0 K/uL (0.0-0.2) 06/19/17 08:50 PT 10.8 SECONDS (9.7-12.2) 06/17/17 14:49 INR 1.0 06/17/17 14:49 APTT 33 SECONDS (21-34) 06/18/17 07:52 Sodium 134 mmol/L (132-148) 06/19/17 08:50 Potassium 4.1 mmol/L (3.6-5.2) 06/19/17 08:50 Chloride 98 mmol/L (98-107) 06/19/17 08:50 Carbon Dioxide 26 mmol/L (22-30) 06/19/17 08:50 Anion Gap 15 (10-20) 06/19/17 08:50 BUN 17 mg/dL (9-20) 06/19/17 08:50 Creatinine 1.0 mg/dL (0.8-1.5) 06/19/17 08:50 Est GFR ( Amer) > 60 06/19/17 08:50 Est GFR (Non-Af Amer) > 60 06/19/17 08:50 POC Glucose (mg/dL) 103 mg/dL (65-110) 06/20/17 06:19 Random Glucose 94 mg/dL (75-110) 06/19/17 08:50 Hemoglobin A1c 6.6 % (4.2-6.5) H 06/18/17 12:59 Calcium 8.5 mg/dl (8.6-10.4) L 06/19/17 08:50 Phosphorus 3.7 mg/dL (2.5-4.5) 06/19/17 08:50 Magnesium 1.9 mg/dL (1.6-2.3) 06/19/17 08:50 Total Bilirubin 0.6 mg/dL (0.2-1.3) 06/19/17 08:50 AST 23 U/L (17-59) 06/19/17 08:50 ALT 46 U/L (21-72) 06/19/17 08:50 Alkaline Phosphatase 68 U/L (38-126) 06/19/17 08:50 Total Creatine Kinase 69 U/L (55-170) 06/17/17 14:44 CK-MB (Mass) 0.81 ng/mL (0.0-3.38) 06/17/17 14:44 Troponin I < 0.0120 ng/mL (0.00-0.120) 06/17/17 14:44 Total Protein 7.0 g/dL (6.3-8.3) 06/19/17 08:50 Albumin 3.9 g/dL (3.5-5.0) 06/19/17 08:50 Globulin 3.1 gm/dL (2.2-3.9) 06/19/17 08:50 Albumin/Globulin Ratio 1.3 (1.0-2.1) 06/19/17 08:50 Triglycerides 171 mg/dL (0-149) H 06/17/17 14:44 Cholesterol 162 mg/dL (0-199) 06/17/17 14:44 LDL Cholesterol Direct 127 mg/dL (0-129) 06/17/17 14:44 HDL Cholesterol 31 mg/dL (30-70) 06/17/17 14:44 Urine Color Yellow (YELLOW) 06/17/17 17:13 Urine Clarity Clear (Clear) 06/17/17 17:13 Urine pH 6.0 (5.0-8.0) 06/17/17 17:13 Ur Specific Baring 1.017 (1.003-1.030) 06/17/17 17:13 Urine Protein Negative mg/dL (NEGATIVE) 06/17/17 17:13 Urine Glucose (UA) Normal mg/dL (Normal) 06/17/17 17:13 Urine Ketones Negative mg/dL (NEGATIVE) 06/17/17 17:13 Urine Blood Trace (NEGATIVE) H 06/17/17 17:13 Urine Nitrate Negative (NEGATIVE) 06/17/17 17:13 Urine Bilirubin Negative (NEGATIVE) 06/17/17 17:13 Urine Urobilinogen Normal mg/dL (0.2-1.0) 06/17/17 17:13 Ur Leukocyte Esterase Neg Naila/uL (Negative) 06/17/17 17:13 Urine WBC (Auto) < 1 /hpf (0-5) 06/17/17 17:13 Urine RBC (Auto) 2 /hpf (0-3) 06/17/17 17:13 - Hospital Course Hospital Course: Upon Admission: 67M presents with Past medical history of 6 stent placed (2012 last stent placement) Patient states the chest pain comes and goes. Occurs after eating for "seconds" and when walking a lot, but when he takes Nitroglycerin, the pain goes away. Patient admits to stable angina brought forth with exertion, but better with rest. Patient states he sees are cutter machine in [place] who he's seen for 6 years, who sent him to a facility for a cardiac cath, but was turned away due to his insurance. Primary Care doctor Dr. Quintana sent patient to Dr. Chandler. Dr. Chandler made aware of patient's admission to the hospital. Dr. Chandler was consulted. Patient states last echocardiogram was 2 weeks ago and that the ER has the papers. Patient's last meal today was at 1pm. Patient denies Fever, chills, headache, vision changes, chest pain (at this residents time of visit), shortness of breath. Patient denies nausea, vomiting, diarrhea, constipation PMH: denies any other than the stent placement. upon review of records: CAD, HTN, HLD Social history: patient denies alcohol, patient smokes 10 cigarettes a day for 4 years Surgeries: stent placement x 6 (last is 2012) PMD: Dr. Quintana Throughout the Hospital Course: Patient was admitted for chest pain r/o ACS, hx of CAD with 6 previous stents. Stable Angina * S/P Cardiac Cath with Dr. Chandler reveal 99% stenosis of LCX * Patient successful Drug Eluting stent placement of L CX on 06/19/[address] Chandler * Plavix 75 daily for 1 year * ASA, Statin, REDDY I and b blockers for life Hx of CAD s/p 6 stents * ASA 81mg POQD, Clopidogrel 75 mg POQD DM * Newly diagnosed * Hga1c: 6.6 * Accuchecks * ISS-low * Will start on oral medications upon discharge HLD * Lipid panel: T, Cholesterol 162, LDL 127, HDL 31 * Continue home medication Rosuvastatin 20mg POQD HTN * Continue home medication Lisinopril 2.5 mg POQD, Metoprolol Succinate 50mg POQD, Amlodipine 5 mg POQD Hx of Tobacco Abuse * Smoking cessation encouraged * 10 cig/day 40 years * Nicotine patch Prophylactic Measures * GI PPX: Pepcid 20mg PO BID * DVT PPX: SCDs, lovenox held due to cardiac cath * Heart Healthy/ moderate carbs Please review EMR for full record, this is a brief summary of the patient's hospital course. Discharge Exam - Head Exam Head Exam: NORMAL INSPECTION - Additional Findings Additional findings: - Constitutional Appears: Non-toxic - Head Exam Head Exam: NORMAL INSPECTION - Eye Exam Eye Exam: EOMI, Normal appearance - ENT Exam ENT Exam: Mucous Membranes Moist - Neck Exam Neck exam: Positive for: Full Rom. Negative for: Tenderness - Respiratory Exam Respiratory Exam: NORMAL BREATHING PATTERN. absent: Accessory Muscle Use, Respiratory Distress - Cardiovascular Exam Cardiovascular Exam: REGULAR RHYTHM. absent: Bradycardia, Tachycardia - GI/Abdominal Exam GI & Abdominal Exam: Normal Bowel Sounds, Soft. absent: Tenderness - Extremities Exam Extremities exam: Positive for: full ROM, normal inspection. Negative for: joint swelling, pedal edema Right groin dressing C/D/I - Neurological Exam Neurological exam: Alert, CN II-XII Intact, Oriented x3 - Skin Skin Exam: Dry, Intact, Normal Color, Warm Discharge Plan - Discharge Medications Prescriptions: amLODIPine [Norvasc] 5 mg PO DAILY #30 tab Aspirin [Ecotrin] 81 mg PO DAILY #30 tabec Clopidogrel [Plavix] 75 mg PO DAILY #30 tab Lisinopril 2.5 mg PO DAILY #30 tablet metFORMIN [glucOPHAGE] 500 mg PO BID #60 tab Metoprolol Succinate 50 mg PO DAILY #30 tab.er.24h Rosuvastatin Calcium [Crestor] 20 mg PO DAILY #30 tab - Follow Up Plan Condition: FAIR Disposition: HOME/ ROUTINE Additional Instructions: Patient is to continue the medications as listed on the paper that will be handed to you during discharge. You are to remain on Plavix 75 mg by mouth daily for 1 year, end date to be 06/20/2018. You are a newly diagnosed diabetic, with a HgA1C of 6.6. You will be taking Metformin 500mg by mouth twice a day. Please see Dr. Quintana so he can better adjust your diabetic medications. Please reduce your intake of sugary items, rice, and other carbohydrates. Please see Dr. Chandler in 1-[address] Quintana, your primary care physician in 1 week. Please return to the emergency room if your symptoms worsen or return. El paciente debe continuar con los medicamentos que figuran en el documento que se le entregar orlando el josé miguel. Debe permanecer en Plavix 75 mg por va oral orlando 1 ao, la fecha de finalizacin es 06/20/2018. Usted es un diabtico recin diagnosticado, con un HgA1C de 6.6. Usted ascencion 500 mg de metformina por va oral dos veces al da. Consulte al Dr. Quintana para que pueda ajustar mejor lorrie medicamentos para la diabetes. Reduzca meehan ingesta de productos azucarados, arroz y otros carbohidratos. Consulte al Dr. Chandler en 1-[address] Quintana, zoran mdico de atencin primaria en 1 semana. Regrese a la cynthia de emergencias si lorrie sntomas empeoran o regresan. Referrals: Kwaku Chandler MD [Staff Provider] - Zeke Quintana MD [Staff Provider] -
[2017-06-20] MEDS: (Novolin R) Insulin Human Regular 100 units/ml vial SC SCH (08:26)
[2017-06-20 08:36] VITALS: PULSE 66
[2017-06-20 09:38] VITALS: BP 102/62; RESP 20; TEMP 98; O2SAT 97
[2017-06-20] MEDS: Metoprolol Succinate 50 mg XL Tab PO SCH (09:40)
[2017-06-20] MEDS: Enoxaparin 40 mg Syringe SC SCH (09:46)
--- NOTE | 2017-06-25 08:41 | CARDCATH ---
DATE OF PROCEDURE: 06/18/2017 PROCEDURES: 1. Left heart catheterization. 2. Coronary angiogram. 3. Radiological supervision and interpretation of the left heart catheterization, LV angiogram and coronary angiogram. REFERRING PHYSICIAN: Dr. Kamlesh Church. PERFORMING PHYSICIAN: Dr. Kwaku Chandler. CLINICAL INDICATIONS: 1. Unstable angina and non-ST elevation myocardial infarction. 2. History of coronary artery disease, status post stent placement. 3. Hypertension. 4. Obesity. 5. Hyperlipidemia. PROCEDURE: After informed consent, the patient was prepped and draped in the usual sterile fashion. A 2% lidocaine was given in the right groin for local anesthesia. Using the micropuncture technique, 6-[place] sheath was introduced into right common femoral artery. A JL4 6-[place]ander diagnostic catheter engaged into left main coronary artery. Radiocontrast injected and left coronary angiogram was performed. Then JR4 6-[place] catheter was inserted into right coronary artery. Contrast injected and right coronary angiogram was performed. A JR4 catheter was placed into left ventricle across the aortic valve. Hand injection LV angiography was performed. Radiological supervision and interpretation of the coronary angiogram, LV angiogram and left heart catheterization was performed. The patient tolerated the procedure well. Post-procedure Perclose was deployed in the right groin with excellent hemostasis. No bleeding or hematoma noted. FINDINGS: 1. Left main coronary artery is patent. 2. Prior LAD stent is patent and diagonal branches are patent. 3. Left circumflex coronary artery has [id number] instant 99% stenosis. Obtuse marginal 1 artery has a proximal 60% stenosis. 4. Right coronary artery is dominant and patent. 5. LV ejection fraction is approximately 60%. No wall motion abnormalities noted. EDP is 18. No gradient across the aortic valve. CONCLUSION: Prior stent, the LAD is patent; however, left circumflex stent has a instant 99% critical occlusion. Recommend coronary intervention of the left circumflex coronary artery. Kwaku Chandler MD
== END 2017-06-20 14:35 | disposition home or self-care (01) | DRG 282 ==
LOC: C.ER 13:55 → C.9E 16:16 → C.5S 17:12 → OBSVTOIN 06-19 07:51
PROVIDERS: ADMIT Family Medicine; ATTEND Family Medicine
PROC: 4A023N7 Measurement of Cardiac Sampling and Pressure, Left Heart, Percutaneous Approach (ICD-10-PCS; principal; 2017-06-19)
PROC: B2151ZZ Fluoroscopy of Left Heart using Low Osmolar Contrast (ICD-10-PCS; 2017-06-19)
PROC: B2111ZZ Fluoroscopy of Multiple Coronary Arteries using Low Osmolar Contrast (ICD-10-PCS; 2017-06-19)
DX: I21.4 Non-ST elevation (NSTEMI) myocardial infarction (principal); E11.9 Type 2 diabetes mellitus without complications; I10 Essential (primary) hypertension; I25.110 Atherosclerotic heart disease of native coronary artery with unstable angina pectoris; F17.210 Nicotine dependence, cigarettes, uncomplicated; E78.5 Hyperlipidemia, unspecified; Z95.5 Presence of coronary angioplasty implant and graft; E66.9 Obesity, unspecified; Z68.38 Body mass index [BMI] 38.0-38.9, adult

== ENCOUNTER 2018-04-03 01:21 | Emergency (ER) | payer MEDICARE ==
[2018-04-03 01:21] VITALS: BMI 39.1
[2018-04-03] MEDS ORDERED: Belladonna-Phenobarbital PO STA (02:23)
[2018-04-03] MEDS ORDERED: Sodium Chloride 0.9% 1,000 ML IV ONE (02:23)
[2018-04-03] MEDS ORDERED: Aluminum Hydroxide/Magnesium Hydroxide Susp (30 mL) PO STA (02:23)
[2018-04-03] MEDS ORDERED: Belladonna-Phenobarbital ONE (02:48)
[2018-04-03] MEDS ORDERED: Alum-Mag Hydrox-Simethicone Susp (30 mL) ONE (02:49)
[2018-04-03] MEDS ORDERED: Sodium Chloride 0.9% 1,000 ML ONE (02:49)
--- NOTE | 2018-04-03 03:07 | C.PDOC ---
History Of Present Illness 67 y/o male presents to ED for complaints of abdominal pain. Patient states "I had 2 empanadas and coffee at 8PM then began to feel symptoms and felt nauseous at 9:30PM." Patient states he had similar symptoms in the past a long time ago. Patient currently denies nausea, vomiting, diarrhea, allergies, or PSH. Patient reports last bowel movement was today. He also states he took Ibuprofen with no relief. Time Seen by Provider: 04/03/18 01:40 Chief Complaint (Nursing): Abdominal Pain History Per: Patient History/Exam Limitations: no limitations Onset/Duration Of Symptoms: Hrs Current Symptoms Are (Timing): Still Present Location Of Pain/Discomfort: Epigastric Radiation Of Pain To:: None Associated Symptoms: denies: Fever, Chills, Nausea, Vomiting, Diarrhea, Urinary Symptoms Exacerbating Factors: None Alleviating Factors: None Last Bowel Movement: Today Recent travel outside of the [place]: No Past Medical History Reviewed: Historical Data, Nursing Documentation, Vital Signs Vital Signs: Last Vital Signs Temp 98.4 F 04/03/18 06:10 Pulse 73 04/03/18 06:10 Resp 20 04/03/18 06:10 BP 155/78 H 04/03/18 06:10 Pulse Ox 99 04/03/18 07:01 - Medical History PMH: Hyperlipidemia Surgical History: Coronary Stent (X2, 7 STENTS PER PATIENT) - [facility] Procedures FLUOROSCOPY OF LEFT HEART USING LOW OSMOLAR CONTRAST (06/19/17) FLUOROSCOPY OF MULT COR ART USING L OSM CONTRAST (06/19/17) MEASURE OF CARDIAC SAMPL & PRESSURE, L HEART, PERC APPROACH (06/19/17) Family History: States: Unknown Family Hx - Social History Hx Alcohol Use: Yes Hx Substance Use: No - Immunization History Hx Tetanus Toxoid Vaccination: No Hx Influenza Vaccination: Yes Hx Pneumococcal Vaccination: No Review Of Systems Constitutional: Negative for: Fever, Chills Cardiovascular: Negative for: Chest Pain Respiratory: Negative for: Cough, Shortness of Breath Gastrointestinal: Positive for: Abdominal Pain. Negative for: Nausea, Vomiting , Diarrhea Genitourinary: Negative for: Dysuria Musculoskeletal: Negative for: Neck Pain Skin: Negative for: Rash Neurological: Negative for: Weakness, Numbness Physical Exam - Physical Exam Appears: Well, Non-toxic, No Acute Distress Skin: Normal Color, Warm, Dry, No Rash Head: Atraumatic, Normacephalic Eye(s): bilateral: Normal Inspection, PERRL, EOMI Oral Mucosa: Moist Neck: Supple Chest: Symmetrical, No Tenderness Cardiovascular: Rhythm Regular Respiratory: Normal Breath Sounds, No Decreased Breath Sounds, No Rales, No Rhonchi, No Wheezing Gastrointestinal/Abdominal: Bowel Sounds (Normal ), Soft, Tenderness (Mild epigastric ) Back: Normal Inspection, No CVA Tenderness Extremity: Normal ROM, No Deformity Extremity: Bilateral: Atraumatic, Normal Color And Temperature, Normal ROM Neurological/Psych: Oriented x3, Normal Speech Gait: Steady ED Course And Treatment - Laboratory Results Result Diagrams: 04/03/18 03:28 04/03/18 03:28 O2 Sat by Pulse Oximetry: 99 (RA) Pulse Ox Interpretation: Normal - CT Scan/US Abdomen US Other Rad Studies (CT/US): Read By Radiologist, Radiology Report Reviewed CT/US Interpretation: EXAM: US Abdomen Limited, Right Upper Quadrant. CLINICAL HISTORY: 67 years old, male; Pain; Abdominal pain; Generalized; Additional info : Ruq. pain, R/O jovany. TECHNIQUE: Real-time ultrasound of the right upper quadrant with image documentation. COMPARISON: No relevant prior studies available. FINDINGS: Liver: Fatty infiltration of the liver. No intrahepatic bile duct dilation. Gallbladder: Large stone in the gallbladder. Gallbladder sludge. Gallbladder wall is thickened at 3.3. mm. Negative sonographic Glover' s sign. Common bile duct: Unremarkable as visualized. No stones. No dilation. Common bile duct measures 5 mm in diameter. Pancreas: Unremarkable as visualized. Right kidney: Unremarkable. No stones. No solid mass. No hydronephrosis. IMPRESSION: 1. Fatty infiltration of the liver. 2. Large stone in the gallbladder. Gallbladder sludge. Gallbladder wall is thickened at 3.3 mm. Negative sonographic Glover's sign. Medical Decision Making Medical Decision Making: Administered Pepcid, Zofran, IV fluids, Maalox, and . Ordered blood work, Obstructuve series X-Ray, and Abdomen US. On re-exam, the patient reports improvement of symptoms. Lungs are CTA, heart is RRR, abdomen is soft, non-tender and the patient is tolerating PO well. Follow up with the medical doctor within 1-2 days. Return if worsened. Disposition - Disposition Referrals: Zeke Quintana MD [Primary Care Provider] - Disposition: HOME/ ROUTINE Disposition Time: 05:55 Condition: GOOD Additional Instructions: Follow up with the medical doctor within 1-3 days. return if worsened. Prescriptions: Acetaminophen [Tylenol] 325 mg PO Q6 PRN #30 tab PRN Reason: Pain, Mild (1-3) Naproxen [Naprosyn] 500 mg PO BID #20 tab Instructions: Gallstones (DC) Forms: Done In :60 Seconds (Lithuanian) - Clinical Impression Clinical Impression: Biliary colic - PA / SURTASS ANALYST / Resident Statement MD/DO has reviewed & agrees with the documentation as recorded. - Scribe Statement The provider has reviewed the documentation as recorded by the Miaibsarita Red All medical record entries made by the Miaibsarita were at my direction and personally dictated by me. I have reviewed the chart and agree that the record accurately reflects my personal performance of the history, physical exam, medical decision making, and the department course for this patient. I have also personally directed, reviewed, and agree with the discharge instructions and disposition.
[2018-04-03 03:35] LABS: BASO % 0.3 % (0.0-2.0); EOS # 0.1 K/uL (0.0-0.7); HEMOGLOBIN 13.7 g/dL (12.0-18.0); LYMPH # 1.9 K/uL (1.0-4.3); MEAN CELL VOLUME 84.4 fL (80.0-94.0); MEAN CORPUSCULAR HEMOGLOBIN 27.8 pg (27.0-31.0); MEAN CORPUSCULAR HGB CONC 32.9 g/dL (33.0-37.0); MEAN PLATELET VOLUME 9.4 fL (7.2-11.7); MONO # 0.5 K/uL (0.0-0.8); MONO % 4.3 % (0.0-10.0); NEUT # 8.1 K/uL (1.8-7.0); NEUT % 76.4 % (50.0-75.0); NRBC % 0.1 % (0.0-2.0); RBC 4.93 Mil/uL (4.40-5.90); RED CELL DISTRIBUTION WIDTH 14.2 % (11.5-14.5); WHITE BLOOD COUNT 10.6 K/uL (4.8-10.8)
[2018-04-03 03:47] LABS: ALB/GLOB RATIO 1.5 (1.0-2.1); ALBUMIN 4.2 g/dL (3.5-5.0); ALT/SGPT 170 U/L (21-72); AST/SGOT 194 U/L (17-59); BLOOD UREA NITROGEN 25 mg/dL (9-20); CALCIUM 9.1 mg/dl (8.6-10.4); GFR AFRICAN-AMERICAN > 60; GFR NON-AFRICAN AMERICAN > 60; LIPASE 152 U/L (23-300)
[2018-04-03 06:22] VITALS: BP 155/78; PULSE 73; RESP 20; TEMP 98.4
[2018-04-03 07:01] VITALS: O2SAT 99
--- NOTE | 2018-04-03 09:53 | RAD ---
Date of service: 04/03/2018 PROCEDURE: Radiographs of the chest and abdomen (obstructive series) HISTORY: abd pain COMPARISON: No prior. TECHNIQUE: AP radiograph of the chest, with upright and supine radiographs of the abdomen. FINDINGS: CHEST: Lungs: Limited patchy density in the left base probably reflecting limited atelectasis rather than true infiltrate. Clinically correlate nevertheless. Right lung appears clear. Cardiovascular: Normal size heart. No pulmonary vascular congestion. Pleura: No pleural fluid. No pneumothorax. Other findings: None. ABDOMEN AND PELVIS: Bowel: Unremarkable bowel gas pattern. No evidence of mechanical obstruction. Free air: None. Bones: Unremarkable. Other findings: No abnormal intra-abdominal calcifications appreciated grossly. Urinary bladder distension is in question. Clinically correlate further. IMPRESSION: 1. Nonobstructive bowel gas pattern. No abnormal intra-abdominal calcifications. No definite free intra peritoneal gas appreciable. 2. Likely atelectasis favored over early infiltrate left base. Clinically correlate.
--- NOTE | 2018-04-03 11:39 | US ---
Date of service: 04/03/2018 HISTORY: RUQ pain, r/o jovany COMPARISON: None. TECHNIQUE: Sonographic evaluation of the right upper quadrant of the abdomen. FINDINGS: LIVER: Measures 17.3 cm in length. Increased echogenicity throughout the the liver parenchyma likely indicates diffuse fatty infiltration though other etiologies are possible. No mass. No intrahepatic bile duct dilatation. GALLBLADDER: Cholelithiasis is identified within the gallbladder. No reported sonographic Glover sign by technologist. Limited sludge is suggested in lumen. Upper limits normal anterior gallbladder wall thickness. No pericholecystic fluid collection nevertheless. COMMON BILE DUCT: Measures 5.0 mm. No stones. No dilatation. PANCREAS: The body of pancreas appears unremarkable the remainder obscured by overlying bowel and stomach gas. RIGHT KIDNEY: Measures 11.0 cm in length. Normal echogenicity. No calculus, mass, or hydronephrosis. AORTA: No aneurysmal dilatation. IVC: Unremarkable. OTHER FINDINGS: None . IMPRESSION: 1. Prominent cholelithiasis with sludge suspected in the lumen as well. Gallbladder wall thickening is questioned anteriorly but there is no sonographic Glover sign reported by the technologist and there is no pericholecystic fluid collection identified either. Clinically correlate for potential cholecystitis. 2. No sonographic evidence to suggest intra or extrahepatic biliary tree dilatation. 3. Partial imaging of the pancreas. 4. Hepatic steatosis suggested. Concordant preliminary report from [facility], 01/27/2018.
== END 2018-04-03 06:15 | disposition home or self-care (01) ==
LOC: C.ER 01:21 → SUPCPDRO 01:21 → C.ER 06:15
DX: K80.50 Calculus of bile duct without cholangitis or cholecystitis without obstruction (principal); E78.5 Hyperlipidemia, unspecified
CPT/HCPCS: 74022; 76705; 80053; 83690; 85025; 96361; 96374; 96375; 99284; J2405; J7030

== ENCOUNTER 2018-05-08 23:49 | Inpatient (IN) | payer MEDICARE ==
[2018-05-09 00:17] LABS: BASO # 0.1 K/uL (0.0-0.2); BASO % 0.7 % (0.0-2.0); EOS # 0.4 K/uL (0.0-0.7); EOS % 4.7 % (0.0-4.0); HEMOGLOBIN 14.3 g/dL (12.0-18.0); LYMPH % 36.6 % (20.0-40.0); MEAN CELL VOLUME 83.4 fL (80.0-94.0); MEAN CORPUSCULAR HEMOGLOBIN 28.3 pg (27.0-31.0); MEAN CORPUSCULAR HGB CONC 33.9 g/dL (33.0-37.0); MEAN PLATELET VOLUME 8.6 fL (7.2-11.7); MONO # 0.8 K/uL (0.0-0.8); MONO % 10.1 % (0.0-10.0); NEUT # 3.9 K/uL (1.8-7.0); NEUT % 47.9 % (50.0-75.0); RBC 5.07 Mil/uL (4.40-5.90); RED CELL DISTRIBUTION WIDTH 14.5 % (11.5-14.5); WHITE BLOOD COUNT 8.2 K/uL (4.8-10.8)
[2018-05-09 00:33] LABS: ALB/GLOB RATIO 1.6 (1.0-2.1); ALBUMIN 4.4 g/dL (3.5-5.0); ALT/SGPT 51 U/L (21-72); AST/SGOT 20 U/L (17-59); BLOOD UREA NITROGEN 16 mg/dL (9-20); CALCIUM 9.2 mg/dl (8.6-10.4); GFR NON-AFRICAN AMERICAN > 60
--- NOTE | 2018-05-09 00:35 | C.PDOC ---
History Of Present Illness 68 y/o M c PMHx CAD s/p stents p/w chest pain x 1 hour. Patient awoke with pain , midsternal, pressure like, associated with diaphoresis and nausea. Denies dyspnea, fever, vomiting, cough. PMD Mariano Buckner Ramesh Time Seen by Provider: 05/09/18 00:00 Chief Complaint (Nursing): Chest Pain Past Medical History Vital Signs: Last Vital Signs Temp 97.9 F 05/08/18 23:59 Pulse 65 05/09/18 04:11 Resp 14 05/09/18 04:11 BP 154/67 H 05/09/18 04:11 Pulse Ox 100 05/09/18 04:11 - Medical History PMH: Hyperlipidemia Surgical History: Coronary Stent (X2, 7 STENTS PER PATIENT) - [facility] Procedures FLUOROSCOPY OF LEFT HEART USING LOW OSMOLAR CONTRAST (06/19/17) FLUOROSCOPY OF MULT COR ART USING L OSM CONTRAST (06/19/17) MEASURE OF CARDIAC SAMPL & PRESSURE, L HEART, PERC APPROACH (06/19/17) Family History: States: Unknown Family Hx - Social History Hx Alcohol Use: Yes Hx Substance Use: No - Immunization History Hx Tetanus Toxoid Vaccination: No Hx Influenza Vaccination: Yes Hx Pneumococcal Vaccination: No Review Of Systems Except As Marked, All Systems Reviewed And Found Negative. Constitutional: Negative for: Fever Respiratory: Negative for: Shortness of Breath Physical Exam - Physical Exam Additional Physical Exam Comments: Constitutional: No acute distress. Head: Normocephalic. Atraumatic. Eyes: PERRL. ENT: Moist mucous membranes. Neck: Supple. Cardiovascular: Regular rate. Radial pulse 2+ bilaterally. Chest: No tenderness. Respiratory: Clear to auscultation bilaterally. GI: Soft. Nontender. Nondistended. Back: No CVA tenderness. Musculoskeletal: No tenderness or swelling of extremities. Skin: Diaphoretic. Neurologic: Alert, no focal deficit. ED Course And Treatment - Laboratory Results Result Diagrams: 05/09/18 00:13 05/09/18 00:13 O2 Sat by Pulse Oximetry: 95 Medical Decision Making Medical Decision Making: EKG Sinus rhythm, 54 bpm, ST depressions/T wave inversions inferior and lateral without ST elevations. CXR no pneumonia. Aspirin administered. Disposition Discussed With : Brenton Rubin Doctor Will See Patient In The: Hospital - Disposition Disposition: HOSPITALIZED Disposition Time: 00:58 Condition: FAIR - POA Core Measure Indicators: Chest Pain - Clinical Impression Clinical Impression: Chest pain
[2018-05-09 00:55] LABS: CK-MB 1.12 ng/mL (0.0-3.38)
[2018-05-09] MEDS ORDERED: Dextrose 50% SYRINGE Inj (50 ml) IV PRN (04:34)
[2018-05-09] MEDS ORDERED: Glucagon Recombinant 1 mg Inj IM PRN (04:34)
--- NOTE | 2018-05-09 04:38 | CP.PCM.HP ---
<Jon Mclaughlin - Last Filed: 05/09/18 06:03> History of Present Illness - History of Present Illness History of Present Illness: PGY2 Medicine H+P for Dr. Rubin Patient is a 68 year old male with past medical history with a past medical history of CAD w/ 7 stents (last stent Jun 2017), non-insulin dependent diabetes , HTN and HLD presenting to the emergency room with a complaints of chest pain. The chest pain woke him up out of his sleep approximately 1 hour prior to arrival. The pain is located in the center of his chest and is sharp in nature. It radiates to the right side of his chest and made him feel short of breath. The pain is similar to previous episodes of chest pain so he decided to call 911. Denies previous h/o NM. Patient reports stopping all medications over 3 months ago. He is still smoking at least 1 pack per day. Denies fevers, chills , nausea, vomiting, diarrhea, constipation, abdominal pain, headache, vision changes, weakness, diaphoresis, numbness or tingling. PMD: Dr. Quintana PMH: CAD w/ 7 stents (last stent Jun 2017), non-insulin dependent diabetes, HTN and HLD PSH: 7 stents (last stent Jun 2017) Social: Smokes at least 1 pack per day (would not answer for how long), denies alcohol or illicit drug use Allergies: NKDA Home Meds (patient states he took most medications for 3 months, then stopped some medications and now has not taken any medications for past 3 months) * amLODIPine [Norvasc] 5 mg PO DAILY * Aspirin [Ecotrin] 81 mg PO DAILY * Clopidogrel [Plavix] 75 mg PO DAILY * Lisinopril 2.5 mg PO DAILY * metFORMIN [glucOPHAGE] 500 mg PO BID * Metoprolol Succinate 50 mg PO DAILY * Rosuvastatin Calcium [Crestor] 20 mg PO DAILY Present on Admission - Present on Admission Any Indicators Present on Admission: No Review of Systems - Review of Systems All systems: reviewed and no additional remarkable complaints except - Constitutional Constitutional: As Per HPI - EENT Eyes: As Per HPI. absent: Blurred Vision, Change in Vision Nose/Mouth/Throat: As Per HPI. absent: Sore Throat - Cardiovascular Cardiovascular: As Per HPI, Chest Pain, Chest Pain at Rest, Dyspnea. absent: Edema - Respiratory Respiratory: As Per HPI. absent: Cough - Gastrointestinal Gastrointestinal: As Per HPI. absent: Abdominal Pain, Constipation, Diarrhea, Nausea, Vomiting - Musculoskeletal Musculoskeletal: As Per HPI - Integumentary Integumentary: As Per HPI - Neurological Neurological: As Per HPI - Psychiatric Psychiatric: As Per HPI - Endocrine Endocrine: As Per HPI Past Patient History - Infectious Disease Hx of Infectious Diseases: None - Past Social History Smoking Status: Light Smoker < 10 Cigarettes Daily - CARDIAC Hx Angina: Yes - ENDOCRINE/METABOLIC Hx Diabetes Mellitus Type 2: Yes - MUSCULOSKELETAL/RHEUMATOLOGICAL Hx Falls: No - PSYCHIATRIC Hx Substance Use: No - SURGICAL HISTORY Hx Coronary Stent: Yes (X2, 7 STENTS PER PATIENT) - ANESTHESIA Hx Anesthesia: Yes Hx Anesthesia Reactions: No Meds Allergies/Adverse Reactions: Allergies Allergy/AdvReac Type Severity Reaction Status Date / Time No Known Allergies Allergy Verified 04/03/18 01:30 Physical Exam - Constitutional Appears: Non-toxic, No Acute Distress, Other (obese) - Head Exam Head Exam: ATRAUMATIC, NORMOCEPHALIC - Eye Exam Eye Exam: EOMI, Normal appearance - ENT Exam ENT Exam: Mucous Membranes Moist - Neck Exam Neck exam: Negative for: Lymphadenopathy - Respiratory Exam Respiratory Exam: Clear to Auscultation Bilateral, NORMAL BREATHING PATTERN. absent: Accessory Muscle Use, Chest Wall Tenderness, Rales, Rhonchi, Wheezes, Respiratory Distress - Cardiovascular Exam Cardiovascular Exam: REGULAR RHYTHM, +S1, +S2 - GI/Abdominal Exam GI & Abdominal Exam: Normal Bowel Sounds, Soft. absent: Distended, Firm, Guarding, Rigid, Tenderness - Extremities Exam Extremities exam: Positive for: pedal pulses present. Negative for: calf tenderness, pedal edema - Neurological Exam Neurological exam: Alert, CN II-XII Intact, Oriented x3 - Psychiatric Exam Psychiatric exam: Normal Affect, Normal Mood - Skin Skin Exam: Dry, Warm Results - Vital Signs Recent Vital Signs: Last Vital Signs Temp 97.9 F 05/08/18 23:59 Pulse 65 05/09/18 04:11 Resp 14 05/09/18 04:11 BP 154/67 H 05/09/18 04:11 Pulse Ox 100 05/09/18 04:11 - Labs Result Diagrams: 05/09/18 00:13 05/09/18 00:13 Labs: Laboratory Results - last 24 hr 05/09/18 05/09/18 05/09/18 00:02 00:13 00:13 WBC 8.2 RBC 5.07 Hgb 14.3 Hct 42.3 MCV 83.4 MCH 28.3 MCHC 33.9 RDW 14.5 Plt Count 248 MPV 8.6 Neut % (Auto) 47.9 L Lymph % (Auto) 36.6 Jackson % (Auto) 10.1 H Eos % (Auto) 4.7 H Baso % (Auto) 0.7 Neut # (Auto) 3.9 Lymph # (Auto) 3.0 Jackson # (Auto) 0.8 Eos # (Auto) 0.4 Baso # (Auto) 0.1 Sodium 140 Potassium 3.8 Chloride 100 Carbon Dioxide 28 Anion Gap 16 BUN 16 Creatinine 0.9 Est GFR ( Amer) > 60 Est GFR (Non-Af Amer) > 60 POC Glucose (mg/dL) 115 H Random Glucose 121 H Calcium 9.2 Total Bilirubin 0.5 AST 20 ALT 51 Alkaline Phosphatase 92 Total Creatine Kinase 132 CK-MB (Mass) 1.12 Troponin I < 0.0120 Total Protein 7.2 Albumin 4.4 Globulin 2.8 Albumin/Globulin Ratio 1.6 Assessment & Plan - Assessment and Plan (Free Text) Plan: Chest Pain r/o ACS hx of CAD w/7 stents per patient Patient not currently taking any at home medications Cardiology consulted, Dr. Amin CXR: no acute disease -->pending official report EKG: Sinus Fredo at 54 bpm, normal axis, T wave inversions in leads V2 - V6 ( not seen on previous EKG from 06/17/18) Trop neg x1: f/u MARICEL x2 TSH/Free T4 pending place on tele monitoring Medications * Nitro 0.4mg SL prn * Aspirin 81mg PO daily * Lovenox 110mg SC q12h DM Patient not currently taking any at home medications Hgb A1c (06/18/18): 6.6 * PENDING Medications * ISS * Hypoglycemic protocol HLD Lipid Panel (06/17/18): HDL 31, LDL 127, Trigly 171 * PENDING Medications * Rosuvastatin 20mg PO HS Uncontrolled HTN Patient not currently taking any at home medications Medications * Lisinopril 2.5 mg PO daily * Amlodipine 5 mg PO daily Hx of Tobacco Abuse Smoking cessation encouraged Prophylactic Measures * GI PPX: Pepcid 20mg PO BID * DVT PPX: therapeutic lovenox * Heart Healthy/moderate carbs/2g Na Case discussed with Dr. Caryn Mclaughlin PGY2 <Brenton Rubin - Last Filed: 05/09/18 19:01> Results - Vital Signs Recent Vital Signs: Last Vital Signs Temp 98.7 F 05/09/18 18:00 Pulse 60 05/09/18 17:22 Resp 20 05/09/18 17:22 BP 157/82 H 05/09/18 17:22 Pulse Ox 99 05/09/18 17:22 - Labs Result Diagrams: 05/09/18 00:13 05/09/18 00:13 Labs: Laboratory Results - last 24 hr 05/09/18 05/09/18 05/09/18 00:02 00:13 00:13 WBC 8.2 RBC 5.07 Hgb 14.3 Hct 42.3 MCV 83.4 MCH 28.3 MCHC 33.9 RDW 14.5 Plt Count 248 MPV 8.6 Neut % (Auto) 47.9 L Lymph % (Auto) 36.6 Jackson % (Auto) 10.1 H Eos % (Auto) 4.7 H Baso % (Auto) 0.7 Neut # (Auto) 3.9 Lymph # (Auto) 3.0 Jackson # (Auto) 0.8 Eos # (Auto) 0.4 Baso # (Auto) 0.1 PT INR APTT Sodium 140 Potassium 3.8 Chloride 100 Carbon Dioxide 28 Anion Gap 16 BUN 16 Creatinine 0.9 Est GFR ( Amer) > 60 Est GFR (Non-Af Amer) > 60 POC Glucose (mg/dL) 115 H Random Glucose 121 H Hemoglobin A1c Calcium 9.2 Total Bilirubin 0.5 AST 20 ALT 51 Alkaline Phosphatase 92 Total Creatine Kinase 132 CK-MB (Mass) 1.12 Troponin I < 0.0120 Total Protein 7.2 Albumin 4.4 Globulin 2.8 Albumin/Globulin Ratio 1.6 Triglycerides Cholesterol LDL Cholesterol Direct HDL Cholesterol Free T4 TSH 3rd Generation 05/09/18 05/09/18 05/09/18 06:50 07:35 07:35 WBC RBC Hgb Hct MCV MCH MCHC RDW Plt Count MPV Neut % (Auto) Lymph % (Auto) Jackson % (Auto) Eos % (Auto) Baso % (Auto) Neut # (Auto) Lymph # (Auto) Jackson # (Auto) Eos # (Auto) Baso # (Auto) PT INR APTT Sodium Potassium Chloride Carbon Dioxide Anion Gap BUN Creatinine Est GFR ( Amer) Est GFR (Non-Af Amer) POC Glucose (mg/dL) 137 H Random Glucose Hemoglobin A1c 6.3 Calcium Total Bilirubin AST ALT Alkaline Phosphatase Total Creatine Kinase 336 H CK-MB (Mass) 17.9 H Troponin I 0.8980 H* Total Protein Albumin Globulin Albumin/Globulin Ratio Triglycerides 112 D Cholesterol 226 H LDL Cholesterol Direct 167 H HDL Cholesterol 29 L Free T4 TSH 3rd Generation 1.32 05/09/18 05/09/18 05/09/18 07:35 14:21 17:55 WBC RBC Hgb Hct MCV MCH MCHC RDW Plt Count MPV Neut % (Auto) Lymph % (Auto) Jackson % (Auto) Eos % (Auto) Baso % (Auto) Neut # (Auto) Lymph # (Auto) Jackson # (Auto) Eos # (Auto) Baso # (Auto) PT 11.3 INR 1.0 APTT 38 H Sodium Potassium Chloride Carbon Dioxide Anion Gap BUN Creatinine Est GFR ( Amer) Est GFR (Non-Af Amer) POC Glucose (mg/dL) Random Glucose Hemoglobin A1c Calcium Total Bilirubin AST ALT Alkaline Phosphatase Total Creatine Kinase 1188 H CK-MB (Mass) 70.6 H Troponin I 7.6900 H* Total Protein Albumin Globulin Albumin/Globulin Ratio Triglycerides Cholesterol LDL Cholesterol Direct HDL Cholesterol Free T4 0.99 TSH 3rd Generation Assessment & Plan - Date & Time Date: 05/09/18 (I have seen and examined the patient. I agree with the findings and plan of care as documented by Dr. Mclaughlin. Patient with chest pain. History of CAD. Consult to cardio. Lovenox. Aspirin and Statin. Continue home meds for history of hypertension and diabetes. Monitor for acute changes.) Time: 19:00 Attending/Attestation - Attestation I have personally seen and examined this patient.: Yes I have fully participated in the care of the patient.: Yes I have reviewed all pertinent clinical information: Yes
[2018-05-09] MEDS: Enoxaparin 120 mg Syringe SC SCH (05:17)
--- NOTE | 2018-05-09 08:04 | RAD ---
Chest x-ray single frontal view History: Chest pain. Comparison: 06/17/2017 Findings: Moderate venous congestion. Patchy increased markings at the left lung base. Enlarged ectatic aorta. Cardiomegaly. Degenerative changes in the spine and shoulders. Calcific tendinopathy of the left proximal humerus. Impression: Moderate venous congestion. Patchy increased markings at the left lung base. Enlarged ectatic aorta. Cardiomegaly.
[2018-05-09] MEDS: (Novolin R) Insulin Human Regular 100 units/ml vial SC SCH ×4 (08:30→22:37)
[2018-05-09 10:12] LABS: CK-MB 17.9 ng/mL (0.0-3.38)
[2018-05-09 10:15] LABS: TROPONIN I 0.898 ng/mL (0.00-0.120)
--- NOTE | 2018-05-09 10:41 | CP.PCM.PN ---
<Shawn Renee - Last Filed: 05/09/18 12:52> Subjective - Date & Time of Evaluation Date of Evaluation: 05/09/18 Time of Evaluation: 10:30 - Subjective Subjective: PGY-[address] Hannah Pt seen and examined at bedside. He was complaining of R-sided chest pain, non- radiating and non-reproducible. I was notified by the nurse that patient's cardiac enzyme's had come back elevated. Patient awake, alert. Denies dizziness, palpitations, back pain, headaches, nausea, vomiting. Patient was non-compliant with his meds at home. Cardiology consulting provider switched to Dr. Chandler, patient's assistant loan processor. Objective - Vital Signs/Intake and Output Vital Signs (last 24 hours): Temp Pulse Resp BP Pulse Ox 97.5 F L 61 20 152/80 H 98 05/09/18 08:34 05/09/18 08:34 05/09/18 08:34 05/09/18 08:34 05/09/18 08:34 - Medications Medications: Current Medications Amlodipine Besylate (Norvasc) 5 mg PO DAILY [facility] Last Admin: 05/09/18 09:58 Dose: 5 mg Aspirin (Ecotrin) 81 mg PO DAILY [facility] Clopidogrel Bisulfate (Plavix) 75 mg PO DAILY [facility] Dextrose (Dextrose 50% Inj) 0 ml IV STAT PRN; Protocol PRN Reason: Hypoglycemia Protocol Dextrose (Glutose 15) 0 gm PO ONCE PRN; Protocol PRN Reason: Hypoglycemia Protocol Enoxaparin Sodium (Lovenox) 110 mg SC Q12H [facility] Last Admin: 05/09/18 05:17 Dose: 110 mg Famotidine (Pepcid) 20 mg PO BID [facility] Last Admin: 05/09/18 09:58 Dose: 20 mg Glucagon (Glucagen Diagnostic Kit) 0 mg IM STAT PRN; Protocol PRN Reason: Hypoglycemia Protocol Dextrose (Dextrose 5% In Water 1000 Ml) 1,000 mls @ 0 mls/hr IV .Q0M PRN; Protocol; Per Protocol PRN Reason: Hypoglycemia Protocol Insulin Human Regular (Novolin R) 0 unit SC ACHS [facility] PRN Reason: Protocol Last Admin: 05/09/18 08:30 Dose: Not Given Lisinopril (Zestril) 2.5 mg PO DAILY [facility] Last Admin: 05/09/18 09:58 Dose: 2.5 mg Metoprolol Succinate (Toprol Xl) 50 mg PO DAILY [facility] Nitroglycerin (Nitrostat Sl Tab) 0.4 mg SL PRN PRN PRN Reason: Pain, moderate (4-7) Last Admin: 05/09/18 05:21 Dose: 0.4 mg Rosuvastatin Calcium (Crestor) 20 mg PO HS [facility] - Labs Labs: 05/09/18 00:13 05/09/18 00:13 - Head Exam Head Exam: ATRAUMATIC, NORMAL INSPECTION - Eye Exam Eye Exam: EOMI, Normal appearance Pupil Exam: NORMAL ACCOMODATION - ENT Exam ENT Exam: Mucous Membranes Moist, Normal Exam - Respiratory Exam Respiratory Exam: Clear to Ausculation Bilateral, NORMAL BREATHING PATTERN - Cardiovascular Exam Cardiovascular Exam: REGULAR RHYTHM, +S1, +S2 Additional comments: +R-sided chest pain, non-radiating, non-reproducible - GI/Abdominal Exam GI & Abdominal Exam: Soft, Normal Bowel Sounds - Extremities Exam Extremities Exam: Normal Inspection - Neurological Exam Neurological Exam: Alert, Awake, CN II-XII Intact, Oriented x3 - Skin Skin Exam: Dry, Intact, Normal Color, Warm Assessment and Plan - Assessment and Plan (Free Text) Assessment: Plan: Chest Pain r/o ACS hx of CAD w/7 stents per patient Patient not currently taking any at home medications Cardiology consulted, Ramesh CXR: no acute disease --> pending official report EKG: Sinus Fredo at 54 bpm, normal axis, T wave inversions in leads V2 - V6 ( not seen on previous EKG from 06/17/18) ROMIs x3: * Initial enzymes - negative * Second set - CK 336 CKMB 7.9 TSH/Free T4 pending place on tele monitoring Repeat EKG ordered for elevated enzymes -No acute changes * Started on Cordell, BB, plavix, statin * Dr. Chandler consult appreciated, he will see the patient later today, agrees with current plan Medications * Nitro 0.4mg SL prn * Aspirin 81mg PO daily * Lovenox 110mg SC q12h * Plavix 75 mg po dialy * Lisinopril 2.5 mg daily * Metoprolol 50 po daily * Rosuvastatin 20mg daily DM Patient not currently taking any at home medications Hgb A1c (06/18/18): 6.6 * PENDING Medications * ISS * Hypoglycemic protocol HLD Lipid Panel (06/17/18): HDL 31, LDL 127, Trigly 171 * PENDING Medications * Rosuvastatin 20mg PO HS Uncontrolled HTN Patient not currently taking any at home medications Medications * Lisinopril 2.5 mg PO daily * Amlodipine 5 mg PO daily Hx of Tobacco Abuse Smoking cessation encouraged Prophylactic Measures * GI PPX: Pepcid 20mg PO BID * DVT PPX: therapeutic lovenox * Heart Healthy/moderate carbs/2g Na Case Discussed with Camden Renee, PGY-1 <Catina Hannah - Last Filed: 05/09/18 18:57> Objective - Vital Signs/Intake and Output Vital Signs (last 24 hours): Temp Pulse Resp BP Pulse Ox 98.7 F 60 20 157/82 H 99 05/09/18 18:00 05/09/18 17:22 05/09/18 17:22 05/09/18 17:22 05/09/18 17:22 - Medications Medications: Current Medications Amlodipine Besylate (Norvasc) 5 mg PO DAILY [facility] Last Admin: 05/09/18 09:58 Dose: 5 mg Aspirin (Ecotrin) 81 mg PO DAILY [facility] Clopidogrel Bisulfate (Plavix) 75 mg PO DAILY [facility] Last Admin: 05/09/18 11:46 Dose: 75 mg Dextrose (Dextrose 50% Inj) 0 ml IV STAT PRN; Protocol PRN Reason: Hypoglycemia Protocol Dextrose (Glutose 15) 0 gm PO ONCE PRN; Protocol PRN Reason: Hypoglycemia Protocol Famotidine (Pepcid) 20 mg PO BID [facility] Last Admin: 05/09/18 17:29 Dose: 20 mg Glucagon (Glucagen Diagnostic Kit) 0 mg IM STAT PRN; Protocol PRN Reason: Hypoglycemia Protocol Heparin Sodium (Porcine) (Heparin) 5,000 units IV ONCE ONE Stop: 05/09/18 19:01 Dextrose (Dextrose 5% In Water 1000 Ml) 1,000 mls @ 0 mls/hr IV .Q0M PRN; Protocol; Per Protocol PRN Reason: Hypoglycemia Protocol Heparin Sodium/Sodium Chloride (Heparin 21161 Units/250ml 1/2 Normal Saline) 25 ,000 units in 250 mls @ 13.009 mls/hr IV .[id number] PRN; Protocol; 12 UNITS/KG/HR PRN Reason: PROTOCOL Insulin Human Regular (Novolin R) 0 unit SC ACHS [facility] PRN Reason: Protocol Last Admin: 05/09/18 17:30 Dose: Not Given Lisinopril (Zestril) 2.5 mg PO DAILY [facility] Last Admin: 05/09/18 09:58 Dose: 2.5 mg Metoprolol Succinate (Toprol Xl) 50 mg PO DAILY [facility] Last Admin: 05/09/18 11:46 Dose: 50 mg Nitroglycerin (Nitrostat Sl Tab) 0.4 mg SL PRN PRN PRN Reason: Pain, moderate (4-7) Last Admin: 05/09/18 05:21 Dose: 0.4 mg Rosuvastatin Calcium (Crestor) 20 mg PO HS [facility] - Labs Labs: 05/09/18 00:13 05/09/18 00:13 PT 11.3 SECONDS (9.7-12.2) 05/09/18 17:55 INR 1.0 05/09/18 17:55 APTT 38 SECONDS (21-34) H 05/09/18 17:55 Attending/Attestation - Attestation I have personally seen and examined this patient.: Yes I have fully participated in the care of the patient.: Yes I have reviewed all pertinent clinical information, including history, physical exam and plan: Yes Notes (Text): Seen and examined this morning and in the afternoon . His troponin went up this afternoon. He was sleeping comfortable daytime. During examination he ststes that he has mild chest pain 3/10. No sob d/w Dr Chandler. Plavix 300mg given,aspirin 325 mg given,started on heparin ACS protocol. patient was transferred to ICU. d/w patient's at bedside continue kevin d/w Dr Kenneth Church
[2018-05-09] MEDS: Metoprolol Succinate 50 mg XL Tab PO SCH (11:46)
[2018-05-09 16:22] LABS: CK-MB 70.6 ng/mL (0.0-3.38); TROPONIN I 7.69 ng/mL (0.00-0.120)
[2018-05-09] MEDS ORDERED: Heparin25000 units/250ml 1/2NS 25,000 UNITS/250 ML BAG IV PRN (17:15)
[2018-05-09] MEDS ORDERED: HEPARIN-NS 5,000 UNITS/500 ML 5,000 UNIT/500 ML BAG IV ONE (17:15)
[2018-05-09 18:13] LABS: PROTHROMBIN TIME 11.3 SECONDS (9.7-12.2)
[2018-05-09 18:55] VITALS: BMI 38.0
--- NOTE | 2018-05-09 18:57 | CP.PCM.CON ---
<Camilo Ferguson - Last Filed: 05/09/18 19:47> History of Present Illness - History of Present Illness History of Present Illness: ICU consult note CC "chest pain" HPI: Patient is a 68 year old male with history of CAD w/ 7 stents ( last stent Jun 2017), NIDDM, HTN and HLD who presented for complaints of midsternal sharp chest pain that woke him out of his sleep about 1 hour prior to arrival to ED. He states that his pain radiated to the right and was associated with shortness of breath. He states that he has had similar episodes of chest pain in the past. He has not been taking medications for the past 3 months. Admits to still smoking 1 pack daily. He denies fever, chills, abdominal pain, nausea, vomiting, diarrhea, headche, vision changes, weakness, numbness or tingling. He currently states that his pain is minimal and states he no longer feels short of breath. PMD: Dr. Quintana Roll Changer: Dr. Chandler PMH: CAD with 7 stents (last stent Jun 2017), NIDDM, HTN and HLD PSH: 7 cardiac stents (last stent Jun 2017) Family history: Both parents had open heart surgery Social: Smokes at least 1 pack per day x 20 years, denies alcohol or illicit drug use. 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 Allergies: NKDA Review of Systems - Constitutional Constitutional: absent: Chills, Fever, Night Sweats - Cardiovascular Cardiovascular: Chest Pain, Dyspnea - Respiratory Respiratory: absent: Cough, Dyspnea - Gastrointestinal Gastrointestinal: absent: Abdominal Pain, Constipation, Nausea, Vomiting - Genitourinary Genitourinary: absent: Difficulty Urinating, Dysuria - Musculoskeletal Musculoskeletal: absent: Muscle Weakness - Neurological Neurological: absent: Headaches, Loss of Vision - Psychiatric Psychiatric: absent: Anxiety, Depression Past Patient History - Infectious Disease Hx of Infectious Diseases: None - Past Medical History & Family History Past Medical History?: Yes - Past Social History Smoking Status: Heavy Smoker > 10 Cigarettes Daily - CARDIAC Hx Cardiac Disorders: Yes Hx Angina: Yes - PULMONARY Hx Respiratory Disorders: No - NEUROLOGICAL Hx Neurological Disorder: No - HEENT Hx HEENT Problems: No - RENAL Hx Chronic Kidney Disease: No - ENDOCRINE/METABOLIC Hx Endocrine Disorders: Yes Hx Diabetes Mellitus Type 2: Yes - HEMATOLOGICAL/ONCOLOGICAL Hx Blood Disorders: No - INTEGUMENTARY Hx Dermatological Problems: No - MUSCULOSKELETAL/RHEUMATOLOGICAL Hx Musculoskeletal Disorders: No Hx Falls: No - GASTROINTESTINAL Hx Gastrointestinal Disorders: No - GENITOURINARY/GYNECOLOGICAL Hx Genitourinary Disorders: No Hx Bladder Cancer: No - PSYCHIATRIC Hx Psychophysiologic Disorder: No Hx Substance Use: No - SURGICAL HISTORY Hx Surgeries: Yes Hx Coronary Stent: Yes (X2, 7 STENTS PER PATIENT) - ANESTHESIA Hx Anesthesia: Yes Hx Anesthesia Reactions: No Meds Allergies/Adverse Reactions: Allergies Allergy/AdvReac Type Severity Reaction Status Date / Time No Known Allergies Allergy Verified 04/03/18 01:30 - Medications Medications: Current Medications Amlodipine Besylate (Norvasc) 5 mg PO DAILY [facility] Last Admin: 05/09/18 09:58 Dose: 5 mg Aspirin (Ecotrin) 81 mg PO DAILY [facility] Clopidogrel Bisulfate (Plavix) 75 mg PO DAILY [facility] Last Admin: 05/09/18 11:46 Dose: 75 mg Dextrose (Dextrose 50% Inj) 0 ml IV STAT PRN; Protocol PRN Reason: Hypoglycemia Protocol Dextrose (Glutose 15) 0 gm PO ONCE PRN; Protocol PRN Reason: Hypoglycemia Protocol Famotidine (Pepcid) 20 mg PO BID [facility] Last Admin: 05/09/18 17:29 Dose: 20 mg Glucagon (Glucagen Diagnostic Kit) 0 mg IM STAT PRN; Protocol PRN Reason: Hypoglycemia Protocol Heparin Sodium (Porcine) (Heparin) 5,000 units IV ONCE ONE Stop: 05/09/18 19:01 Dextrose (Dextrose 5% In Water 1000 Ml) 1,000 mls @ 0 mls/hr IV .Q0M PRN; Protocol; Per Protocol PRN Reason: Hypoglycemia Protocol Heparin Sodium/Sodium Chloride (Heparin 91055 Units/250ml 1/2 Normal Saline) 25 ,000 units in 250 mls @ 13.009 mls/hr IV .[id number] PRN; Protocol; 12 UNITS/KG/HR PRN Reason: PROTOCOL Insulin Human Regular (Novolin R) 0 unit SC ACHS [facility] PRN Reason: Protocol Last Admin: 05/09/18 17:30 Dose: Not Given Lisinopril (Zestril) 2.5 mg PO DAILY [facility] Last Admin: 05/09/18 09:58 Dose: 2.5 mg Metoprolol Succinate (Toprol Xl) 50 mg PO DAILY [facility] Last Admin: 05/09/18 11:46 Dose: 50 mg Nitroglycerin (Nitrostat Sl Tab) 0.4 mg SL PRN PRN PRN Reason: Pain, moderate (4-7) Last Admin: 05/09/18 05:21 Dose: 0.4 mg Rosuvastatin Calcium (Crestor) 20 mg PO [facility] Physical Exam - Constitutional Appears: Well, No Acute Distress - Head Exam Head Exam: ATRAUMATIC, NORMOCEPHALIC - Eye Exam Eye Exam: EOMI Pupil Exam: PERRL - ENT Exam ENT Exam: Mucous Membranes Moist - Neck Exam Neck exam: Positive for: Full Rom. Negative for: Lymphadenopathy - Respiratory Exam Respiratory Exam: Clear to Auscultation Bilateral. absent: Rales, Rhonchi, Wheezes, Respiratory Distress, Stridor - Cardiovascular Exam Cardiovascular Exam: REGULAR RHYTHM, +S1, +S2 - GI/Abdominal Exam GI & Abdominal Exam: Normal Bowel Sounds, Soft. absent: Distended, Firm, Guarding, Hernia, Tenderness - Extremities Exam Extremities exam: Positive for: normal capillary refill, pedal pulses present. Negative for: calf tenderness, pedal edema - Neurological Exam Neurological exam: Alert, Oriented x3 - Psychiatric Exam Psychiatric exam: Normal Affect, Normal Mood - Skin Skin Exam: Dry, Intact, Warm Results - Vital Signs Recent Vital Signs: Last Vital Signs Temp 98.7 F 05/09/18 18:00 Pulse 60 05/09/18 17:22 Resp 20 05/09/18 17:22 BP 157/82 H 05/09/18 17:22 Pulse Ox 99 05/09/18 17:22 - Labs Result Diagrams: 05/09/18 00:13 05/09/18 00:13 Labs: Laboratory Results - last 24 hr 05/09/18 05/09/18 05/09/18 00:02 00:13 00:13 WBC 8.2 RBC 5.07 Hgb 14.3 Hct 42.3 MCV 83.4 MCH 28.3 MCHC 33.9 RDW 14.5 Plt Count 248 MPV 8.6 Neut % (Auto) 47.9 L Lymph % (Auto) 36.6 Wolfe % (Auto) 10.1 H Eos % (Auto) 4.7 H Baso % (Auto) 0.7 Neut # (Auto) 3.9 Lymph # (Auto) 3.0 Wolfe # (Auto) 0.8 Eos # (Auto) 0.4 Baso # (Auto) 0.1 PT INR APTT Sodium 140 Potassium 3.8 Chloride 100 Carbon Dioxide 28 Anion Gap 16 BUN 16 Creatinine 0.9 Est GFR ( Amer) > 60 Est GFR (Non-Af Amer) > 60 POC Glucose (mg/dL) 115 H Random Glucose 121 H Hemoglobin A1c Calcium 9.2 Total Bilirubin 0.5 AST 20 ALT 51 Alkaline Phosphatase 92 Total Creatine Kinase 132 CK-MB (Mass) 1.12 Troponin I < 0.0120 Total Protein 7.2 Albumin 4.4 Globulin 2.8 Albumin/Globulin Ratio 1.6 Triglycerides Cholesterol LDL Cholesterol Direct HDL Cholesterol Free T4 TSH 3rd Generation 05/09/18 05/09/18 05/09/18 06:50 07:35 07:35 WBC RBC Hgb Hct MCV MCH MCHC RDW Plt Count MPV Neut % (Auto) Lymph % (Auto) Wolfe % (Auto) Eos % (Auto) Baso % (Auto) Neut # (Auto) Lymph # (Auto) Wolfe # (Auto) Eos # (Auto) Baso # (Auto) PT INR APTT Sodium Potassium Chloride Carbon Dioxide Anion Gap BUN Creatinine Est GFR ( Amer) Est GFR (Non-Af Amer) POC Glucose (mg/dL) 137 H Random Glucose Hemoglobin A1c 6.3 Calcium Total Bilirubin AST ALT Alkaline Phosphatase Total Creatine Kinase 336 H CK-MB (Mass) 17.9 H Troponin I 0.8980 H* Total Protein Albumin Globulin Albumin/Globulin Ratio Triglycerides 112 D Cholesterol 226 H LDL Cholesterol Direct 167 H HDL Cholesterol 29 L Free T4 TSH 3rd Generation 1.32 05/09/18 05/09/18 05/09/18 07:35 14:21 17:55 WBC RBC Hgb Hct MCV MCH MCHC RDW Plt Count MPV Neut % (Auto) Lymph % (Auto) Wolfe % (Auto) Eos % (Auto) Baso % (Auto) Neut # (Auto) Lymph # (Auto) Wolfe # (Auto) Eos # (Auto) Baso # (Auto) PT 11.3 INR 1.0 APTT 38 H Sodium Potassium Chloride Carbon Dioxide Anion Gap BUN Creatinine Est GFR ( Amer) Est GFR (Non-Af Amer) POC Glucose (mg/dL) Random Glucose Hemoglobin A1c Calcium Total Bilirubin AST ALT Alkaline Phosphatase Total Creatine Kinase 1188 H CK-MB (Mass) 70.6 H Troponin I 7.6900 H* Total Protein Albumin Globulin Albumin/Globulin Ratio Triglycerides Cholesterol LDL Cholesterol Direct HDL Cholesterol Free T4 0.99 TSH 3rd Generation Assessment & Plan - Assessment and Plan (Free Text) Assessment: 68 year old male with history of CAD s/p 7 stents, NIDDM, HTN, HLD who presented for complaints of chest pain. Patient is scheduled for cardiac catheterization tomorrow. Plan: Neuro: Alert and oriented x3 Cardiovascular: Hx of CAD with 7 stents EKG: Sinus bradycardia at 54, normal axis, T wave inversions in leads V2-V6 CXR: no acute disease NSTEMI Troponins <0.0120 --> 0.8980 --> 7.6900 CKMB 1.12 --> 17.9 --> 70.6 Total creatinine kinase 132 --> 336 --> 1188 Norvasc 5mg PO daily ASA 81mg PO daily Plavix 75mg PO daily Lisinopril 2.5mg PO Metoprolol succinate 50mg PO daily Nitroglycerin 0.4mg SL PRN Crestor 20mg PO HS Keep NPO Dr. Chandler consulted, help appreciated f/u ECHO Pulmonary: Oxygenating well on O2 2L via NC. CXR: no acute disease GI: Pepcid 20mg PO BID Continue to monitor BMs Renal: BUN 16 Cr 0.9 I&Os Endo: Hx of NIDDM ISS Hypoglycemic protocol TSH 1.32 T4 0.99 ID Afebrile White count not elevated Heme: Hb 14.3/Hct 42.3 PPX: SCDs Case discussed with Dr. Brett Church <Brett Church M - Last Filed: 05/09/18 20:31> Meds - Medications Medications: Current Medications Amlodipine Besylate (Norvasc) 5 mg PO DAILY [facility] Last Admin: 05/09/18 09:58 Dose: 5 mg Aspirin (Ecotrin) 81 mg PO DAILY [facility] Clopidogrel Bisulfate (Plavix) 75 mg PO DAILY [facility] Last Admin: 05/09/18 11:46 Dose: 75 mg Dextrose (Dextrose 50% Inj) 0 ml IV STAT PRN; Protocol PRN Reason: Hypoglycemia Protocol Dextrose (Glutose 15) 0 gm PO ONCE PRN; Protocol PRN Reason: Hypoglycemia Protocol Famotidine (Pepcid) 20 mg PO BID [facility] Last Admin: 05/09/18 17:29 Dose: 20 mg Glucagon (Glucagen Diagnostic Kit) 0 mg IM STAT PRN; Protocol PRN Reason: Hypoglycemia Protocol Dextrose (Dextrose 5% In Water 1000 Ml) 1,000 mls @ 0 mls/hr IV .Q0M PRN; Protocol; Per Protocol PRN Reason: Hypoglycemia Protocol Heparin Sodium/Sodium Chloride (Heparin 68480 Units/250ml 1/2 Normal Saline) 25 ,000 units in 250 mls @ 13.009 mls/hr IV .[id number] PRN; Protocol; 12 UNITS/KG/HR PRN Reason: PROTOCOL Last Admin: 05/09/18 19:30 Dose: 12 units/kg/hr, 13.009 mls/hr Insulin Human Regular (Novolin R) 0 unit SC ACHS [facility] PRN Reason: Protocol Last Admin: 05/09/18 17:30 Dose: Not Given Lisinopril (Zestril) 2.5 mg PO DAILY [facility] Last Admin: 05/09/18 09:58 Dose: 2.5 mg Metoprolol Succinate (Toprol Xl) 50 mg PO DAILY [facility] Last Admin: 05/09/18 11:46 Dose: 50 mg Nitroglycerin (Nitrostat Sl Tab) 0.4 mg SL PRN PRN PRN Reason: Pain, moderate (4-7) Last Admin: 05/09/18 05:21 Dose: 0.4 mg Rosuvastatin Calcium (Crestor) 20 mg PO [facility] Results - Vital Signs Recent Vital Signs: Last Vital Signs Temp 98.7 F 05/09/18 18:00 Pulse 60 05/09/18 17:22 Resp 20 05/09/18 17:22 BP 157/82 H 05/09/18 17:22 Pulse Ox 99 05/09/18 17:22 - Labs Result Diagrams: 05/09/18 00:13 05/09/18 00:13 Labs: Laboratory Results - last 24 hr 05/09/18 05/09/18 05/09/18 00:02 00:13 00:13 WBC 8.2 RBC 5.07 Hgb 14.3 Hct 42.3 MCV 83.4 MCH 28.3 MCHC 33.9 RDW 14.5 Plt Count 248 MPV 8.6 Neut % (Auto) 47.9 L Lymph % (Auto) 36.6 Wolfe % (Auto) 10.1 H Eos % (Auto) 4.7 H Baso % (Auto) 0.7 Neut # (Auto) 3.9 Lymph # (Auto) 3.0 Wolfe # (Auto) 0.8 Eos # (Auto) 0.4 Baso # (Auto) 0.1 PT INR APTT Sodium 140 Potassium 3.8 Chloride 100 Carbon Dioxide 28 Anion Gap 16 BUN 16 Creatinine 0.9 Est GFR ( Amer) > 60 Est GFR (Non-Af Amer) > 60 POC Glucose (mg/dL) 115 H Random Glucose 121 H Hemoglobin A1c Calcium 9.2 Total Bilirubin 0.5 AST 20 ALT 51 Alkaline Phosphatase 92 Total Creatine Kinase 132 CK-MB (Mass) 1.12 Troponin I < 0.0120 Total Protein 7.2 Albumin 4.4 Globulin 2.8 Albumin/Globulin Ratio 1.6 Triglycerides Cholesterol LDL Cholesterol Direct HDL Cholesterol Free T4 TSH 3rd Generation 05/09/18 05/09/18 05/09/18 06:50 07:35 07:35 WBC RBC Hgb Hct MCV MCH MCHC RDW Plt Count MPV Neut % (Auto) Lymph % (Auto) Wolfe % (Auto) Eos % (Auto) Baso % (Auto) Neut # (Auto) Lymph # (Auto) Wolfe # (Auto) Eos # (Auto) Baso # (Auto) PT INR APTT Sodium Potassium Chloride Carbon Dioxide Anion Gap BUN Creatinine Est GFR ( Amer) Est GFR (Non-Af Amer) POC Glucose (mg/dL) 137 H Random Glucose Hemoglobin A1c 6.3 Calcium Total Bilirubin AST ALT Alkaline Phosphatase Total Creatine Kinase 336 H CK-MB (Mass) 17.9 H Troponin I 0.8980 H* Total Protein Albumin Globulin Albumin/Globulin Ratio Triglycerides 112 D Cholesterol 226 H LDL Cholesterol Direct 167 H HDL Cholesterol 29 L Free T4 TSH 3rd Generation 1.32 05/09/18 05/09/18 05/09/18 07:35 14:21 17:55 WBC RBC Hgb Hct MCV MCH MCHC RDW Plt Count MPV Neut % (Auto) Lymph % (Auto) Wolfe % (Auto) Eos % (Auto) Baso % (Auto) Neut # (Auto) Lymph # (Auto) Wolfe # (Auto) Eos # (Auto) Baso # (Auto) PT 11.3 INR 1.0 APTT 38 H Sodium Potassium Chloride Carbon Dioxide Anion Gap BUN Creatinine Est GFR ( Amer) Est GFR (Non-Af Amer) POC Glucose (mg/dL) Random Glucose Hemoglobin A1c Calcium Total Bilirubin AST ALT Alkaline Phosphatase Total Creatine Kinase 1188 H CK-MB (Mass) 70.6 H Troponin I 7.6900 H* Total Protein Albumin Globulin Albumin/Globulin Ratio Triglycerides Cholesterol LDL Cholesterol Direct HDL Cholesterol Free T4 0.99 TSH 3rd Generation Assessment & Plan - Assessment and Plan (Free Text) Plan: Above patient seen and examined at bedside with above resident. NSTEMI CAD DM HTN Patient being managed by cardiology team. Patient remains hemodynamically stable f/u ptt, monitor for any bleeding Patient remains hemodynamically stable. - Date & Time Date: 05/09/18 Time: 19:00
[2018-05-09] MEDS ORDERED: Bisacodyl 5mg EC Tab PO ONE (19:41)
--- NOTE | 2018-05-09 20:05 | CARD ---
APPROVED REPORT Date of service: 05/08/2018 EKG Measurement Heart [id number] <Conclusion> Sinus bradycardia Left anterior fascicular block Minimal voltage criteria for LVH, may be normal variant ST & T wave abnormality, consider anterolateral ischemia Abnormal ECG
--- NOTE | 2018-05-09 20:31 | CP.PCM.CON ---
<Wallace Zapata - Last Filed: 05/09/18 20:25> History of Present Illness - History of Present Illness History of Present Illness: Cardiology consult note ( Dr. Chandler's service) CC: Chest pain HPI: Patient is a 68 year old male with past medical history of HTN, HLD, CAD ( 6 stents), and DM type 2, who presented to the ED with complaints of chest pain that woke him up from sleep at 11pm last night. Patient characterizes his pain as 8-9/10 sharp and tight/squeezing substernal/epigastric pain without radiation. He denies taking any medications to alleviate the pain. He admits to chest pain and diaphoresis, but denies palpitations, n/v, headache, back pain , blurry vision, dizziness/lightheadedness, leg swelling or abdominal pain. Upon further questioning, patient states that after his last stent placement () he took his medications for a total of 3 months and then discontinued them. He does report SOB after walking/dancing which improves with rest. During the encounter, patient is without chest pain. 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 absent: Diaphoresis, Orthopnea, Palpitations, Pedal Edema, Radiating Pain - Respiratory Respiratory: Dyspnea - Gastrointestinal Gastrointestinal: absent: Abdominal Pain, Nausea, Vomiting - Musculoskeletal Musculoskeletal: absent: Numbness, Tingling - Neurological Neurological: absent: Dizziness, Numbness, Tingling Past Patient History - Infectious Disease Hx of Infectious Diseases: None - Past Medical History & Family History Past Medical History?: Yes - Past Social History Smoking Status: Heavy Smoker > 10 Cigarettes Daily - CARDIAC Hx Cardiac Disorders: Yes Hx Angina: Yes - PULMONARY Hx Respiratory Disorders: No - NEUROLOGICAL Hx Neurological Disorder: No - HEENT Hx HEENT Problems: No - RENAL Hx Chronic Kidney Disease: No - ENDOCRINE/METABOLIC Hx Endocrine Disorders: Yes Hx Diabetes Mellitus Type 2: Yes - HEMATOLOGICAL/ONCOLOGICAL Hx Blood Disorders: No - INTEGUMENTARY Hx Dermatological Problems: No - MUSCULOSKELETAL/RHEUMATOLOGICAL Hx Musculoskeletal Disorders: No Hx Falls: No - GASTROINTESTINAL Hx Gastrointestinal Disorders: No - GENITOURINARY/GYNECOLOGICAL Hx Genitourinary Disorders: No Hx Bladder Cancer: No - PSYCHIATRIC Hx Psychophysiologic Disorder: No Hx Substance Use: No - SURGICAL HISTORY Hx Surgeries: Yes Hx Coronary Stent: Yes (X2, 7 STENTS PER PATIENT) - ANESTHESIA Hx Anesthesia: Yes Hx Anesthesia Reactions: No Meds Allergies/Adverse Reactions: Allergies Allergy/AdvReac Type Severity Reaction Status Date / Time No Known Allergies Allergy Verified 04/03/18 01:30 - Medications Medications: Current Medications Amlodipine Besylate (Norvasc) 5 mg PO DAILY [facility] Last Admin: 05/09/18 09:58 Dose: 5 mg Aspirin (Ecotrin) 81 mg PO DAILY [facility] Clopidogrel Bisulfate (Plavix) 75 mg PO DAILY [facility] Last Admin: 05/09/18 11:46 Dose: 75 mg Dextrose (Dextrose 50% Inj) 0 ml IV STAT PRN; Protocol PRN Reason: Hypoglycemia Protocol Dextrose (Glutose 15) 0 gm PO ONCE PRN; Protocol PRN Reason: Hypoglycemia Protocol Famotidine (Pepcid) 20 mg PO BID [facility] Last Admin: 05/09/18 17:29 Dose: 20 mg Glucagon (Glucagen Diagnostic Kit) 0 mg IM STAT PRN; Protocol PRN Reason: Hypoglycemia Protocol Dextrose (Dextrose 5% In Water 1000 Ml) 1,000 mls @ 0 mls/hr IV .Q0M PRN; Protocol; Per Protocol PRN Reason: Hypoglycemia Protocol Heparin Sodium/Sodium Chloride (Heparin 30310 Units/250ml 1/2 Normal Saline) 25 ,000 units in 250 mls @ 13.009 mls/hr IV .[id number] PRN; Protocol; 12 UNITS/KG/HR PRN Reason: PROTOCOL Last Admin: 05/09/18 19:30 Dose: 12 units/kg/hr, 13.009 mls/hr Insulin Human Regular (Novolin R) 0 unit SC ACHS [facility] PRN Reason: Protocol Last Admin: 05/09/18 17:30 Dose: Not Given Lisinopril (Zestril) 2.5 mg PO DAILY [facility] Last Admin: 05/09/18 09:58 Dose: 2.5 mg Metoprolol Succinate (Toprol Xl) 50 mg PO DAILY [facility] Last Admin: 05/09/18 11:46 Dose: 50 mg Nitroglycerin (Nitrostat Sl Tab) 0.4 mg SL PRN PRN PRN Reason: Pain, moderate (4-7) Last Admin: 05/09/18 05:21 Dose: 0.4 mg Rosuvastatin Calcium (Crestor) 20 mg PO [facility] Physical Exam - Constitutional Appears: No Acute Distress - Head Exam Head Exam: ATRAUMATIC, NORMAL INSPECTION - Eye Exam Eye Exam: EOMI - ENT Exam ENT Exam: Mucous Membranes Moist - Respiratory Exam Respiratory Exam: NORMAL BREATHING PATTERN - Cardiovascular Exam Cardiovascular Exam: REGULAR RHYTHM - GI/Abdominal Exam GI & Abdominal Exam: Normal Bowel Sounds, Soft. absent: Diminished Bowel Sounds , Distended, Firm, Tenderness - Extremities Exam Extremities exam: Positive for: normal inspection - Neurological Exam Neurological exam: Alert, Oriented x3 Results - Vital Signs Recent Vital Signs: Last Vital Signs Temp 98.7 F 05/09/18 18:00 Pulse 60 05/09/18 17:22 Resp 20 05/09/18 17:22 BP 157/82 H 05/09/18 17:22 Pulse Ox 99 05/09/18 17:22 - Labs Result Diagrams: 05/09/18 00:13 05/09/18 00:13 Labs: Laboratory Results - last 24 hr 05/09/18 05/09/18 05/09/18 00:02 00:13 00:13 WBC 8.2 RBC 5.07 Hgb 14.3 Hct 42.3 MCV 83.4 MCH 28.3 MCHC 33.9 RDW 14.5 Plt Count 248 MPV 8.6 Neut % (Auto) 47.9 L Lymph % (Auto) 36.6 [place] % (Auto) 10.1 H Eos % (Auto) 4.7 H Baso % (Auto) 0.7 Neut # (Auto) 3.9 Lymph # (Auto) 3.0 [place] # (Auto) 0.8 Eos # (Auto) 0.4 Baso # (Auto) 0.1 PT INR APTT Sodium 140 Potassium 3.8 Chloride 100 Carbon Dioxide 28 Anion Gap 16 BUN 16 Creatinine 0.9 Est GFR ( Amer) > 60 Est GFR (Non-Af Amer) > 60 POC Glucose (mg/dL) 115 H Random Glucose 121 H Hemoglobin A1c Calcium 9.2 Total Bilirubin 0.5 AST 20 ALT 51 Alkaline Phosphatase 92 Total Creatine Kinase 132 CK-MB (Mass) 1.12 Troponin I < 0.0120 Total Protein 7.2 Albumin 4.4 Globulin 2.8 Albumin/Globulin Ratio 1.6 Triglycerides Cholesterol LDL Cholesterol Direct HDL Cholesterol Free T4 TSH 3rd Generation 05/09/18 05/09/18 05/09/18 06:50 07:35 07:35 WBC RBC Hgb Hct MCV MCH MCHC RDW Plt Count MPV Neut % (Auto) Lymph % (Auto) [place] % (Auto) Eos % (Auto) Baso % (Auto) Neut # (Auto) Lymph # (Auto) [place] # (Auto) Eos # (Auto) Baso # (Auto) PT INR APTT Sodium Potassium Chloride Carbon Dioxide Anion Gap BUN Creatinine Est GFR ( Amer) Est GFR (Non-Af Amer) POC Glucose (mg/dL) 137 H Random Glucose Hemoglobin A1c 6.3 Calcium Total Bilirubin AST ALT Alkaline Phosphatase Total Creatine Kinase 336 H CK-MB (Mass) 17.9 H Troponin I 0.8980 H* Total Protein Albumin Globulin Albumin/Globulin Ratio Triglycerides 112 D Cholesterol 226 H LDL Cholesterol Direct 167 H HDL Cholesterol 29 L Free T4 TSH 3rd Generation 1.32 05/09/18 05/09/18 05/09/18 07:35 14:21 17:55 WBC RBC Hgb Hct MCV MCH MCHC RDW Plt Count MPV Neut % (Auto) Lymph % (Auto) [place] % (Auto) Eos % (Auto) Baso % (Auto) Neut # (Auto) Lymph # (Auto) [place] # (Auto) Eos # (Auto) Baso # (Auto) PT 11.3 INR 1.0 APTT 38 H Sodium Potassium Chloride Carbon Dioxide Anion Gap BUN Creatinine Est GFR ( Amer) Est GFR (Non-Af Amer) POC Glucose (mg/dL) Random Glucose Hemoglobin A1c Calcium Total Bilirubin AST ALT Alkaline Phosphatase Total Creatine Kinase 1188 H CK-MB (Mass) 70.6 H Troponin I 7.6900 H* Total Protein Albumin Globulin Albumin/Globulin Ratio Triglycerides Cholesterol LDL Cholesterol Direct HDL Cholesterol Free T4 0.99 TSH 3rd Generation Assessment & Plan (1) NSTEMI (non-ST elevated myocardial infarction) Assessment and Plan: Transfer to ICU EKG: NSR, T-wave abnormality V3, V4 and V5/V6 MARICEL panel: <0.0120--> 0.8980--->7.6900 Lipid panel: - TGL: 112, Chol:226, LDL:167 and HDL: 29 HgbA1C: 6.3 TSH and Free T4: 1.32 and 0.9 06/24/17: Cardiac catherization: Left circumflex artery stent restenosis, ballon -angioplasty and drug-eluting stent placement. Prior LAD stent was patent and LV60% Medications: - Heparin drip - ASA 81mg PO daily - Plavix 75mg PO daily - Nitro SL - Toprol XL 50mg PO daily - NPO, plans for cardiac cath All plans and management discussed with Dr. Chandler Status: Acute <Kwaku Chandler - Last Filed: 05/09/18 21:55> Meds - Medications Medications: Current Medications Amlodipine Besylate (Norvasc) 5 mg PO DAILY [facility] Last Admin: 05/09/18 09:58 Dose: 5 mg Aspirin (Ecotrin) 81 mg PO DAILY [facility] Clopidogrel Bisulfate (Plavix) 75 mg PO DAILY [facility] Last Admin: 05/09/18 11:46 Dose: 75 mg Dextrose (Dextrose 50% Inj) 0 ml IV STAT PRN; Protocol PRN Reason: Hypoglycemia Protocol Dextrose (Glutose 15) 0 gm PO ONCE PRN; Protocol PRN Reason: Hypoglycemia Protocol Famotidine (Pepcid) 20 mg PO BID [facility] Last Admin: 05/09/18 17:29 Dose: 20 mg Glucagon (Glucagen Diagnostic Kit) 0 mg IM STAT PRN; Protocol PRN Reason: Hypoglycemia Protocol Hydralazine HCl (Apresoline) 10 mg IVP Q6H [facility] Last Admin: 05/09/18 21:50 Dose: 10 mg Dextrose (Dextrose 5% In Water 1000 Ml) 1,000 mls @ 0 mls/hr IV .Q0M PRN; Protocol; Per Protocol PRN Reason: Hypoglycemia Protocol Heparin Sodium/Sodium Chloride (Heparin 54291 Units/250ml 1/2 Normal Saline) 25 ,000 units in 250 mls @ 13.009 mls/hr IV .[id number] PRN; Protocol; 12 UNITS/KG/HR PRN Reason: PROTOCOL Last Admin: 05/09/18 19:30 Dose: 12 units/kg/hr, 13.009 mls/hr Nitroglycerin/Dextrose (Nitroglycerin 50 Mg/250 Ml D5w) 50 mg in 250 mls @ 1.5 mls/hr IV .Q24H [facility]; 5 MCG/MIN PRN Reason: Protocol Last Titration: 05/09/18 21:49 Dose: 0 mcg/min, 0 mls/hr Insulin Human Regular (Novolin R) 0 unit SC ACHS [facility] PRN Reason: Protocol Last Admin: 05/09/18 17:30 Dose: Not Given Lisinopril (Zestril) 2.5 mg PO DAILY [facility] Last Admin: 05/09/18 09:58 Dose: 2.5 mg Metoprolol Succinate (Toprol Xl) 50 mg PO DAILY [facility] Last Admin: 05/09/18 11:46 Dose: 50 mg Nitroglycerin (Nitrostat Sl Tab) 0.4 mg SL PRN PRN PRN Reason: Pain, moderate (4-7) Last Admin: 05/09/18 05:21 Dose: 0.4 mg Rosuvastatin Calcium (Crestor) 20 mg PO HS [facility] Last Admin: 05/09/18 21:15 Dose: 20 mg Results - Vital Signs Recent Vital Signs: Last Vital Signs Temp 98.7 F 05/09/18 18:00 Pulse 62 05/09/18 21:31 Resp 21 05/09/18 21:31 BP 168/90 H 05/09/18 21:31 Pulse Ox 99 05/09/18 21:31 - Labs Result Diagrams: 05/09/18 00:13 05/09/18 00:13 Labs: Laboratory Results - last 24 hr 05/09/18 05/09/18 05/09/18 00:02 00:13 00:13 WBC 8.2 RBC 5.07 Hgb 14.3 Hct 42.3 MCV 83.4 MCH 28.3 MCHC 33.9 RDW 14.5 Plt Count 248 MPV 8.6 Neut % (Auto) 47.9 L Lymph % (Auto) 36.6 [place] % (Auto) 10.1 H Eos % (Auto) 4.7 H Baso % (Auto) 0.7 Neut # (Auto) 3.9 Lymph # (Auto) 3.0 [place] # (Auto) 0.8 Eos # (Auto) 0.4 Baso # (Auto) 0.1 PT INR APTT Sodium 140 Potassium 3.8 Chloride 100 Carbon Dioxide 28 Anion Gap 16 BUN 16 Creatinine 0.9 Est GFR ( Amer) > 60 Est GFR (Non-Af Amer) > 60 POC Glucose (mg/dL) 115 H Random Glucose 121 H Hemoglobin A1c Calcium 9.2 Total Bilirubin 0.5 AST 20 ALT 51 Alkaline Phosphatase 92 Total Creatine Kinase 132 CK-MB (Mass) 1.12 Troponin I < 0.0120 Total Protein 7.2 Albumin 4.4 Globulin 2.8 Albumin/Globulin Ratio 1.6 Triglycerides Cholesterol LDL Cholesterol Direct HDL Cholesterol Free T4 TSH 3rd Generation 05/09/18 05/09/18 05/09/18 06:50 07:35 07:35 WBC RBC Hgb Hct MCV MCH MCHC RDW Plt Count MPV Neut % (Auto) Lymph % (Auto) [place] % (Auto) Eos % (Auto) Baso % (Auto) Neut # (Auto) Lymph # (Auto) [place] # (Auto) Eos # (Auto) Baso # (Auto) PT INR APTT Sodium Potassium Chloride Carbon Dioxide Anion Gap BUN Creatinine Est GFR ( Amer) Est GFR (Non-Af Amer) POC Glucose (mg/dL) 137 H Random Glucose Hemoglobin A1c 6.3 Calcium Total Bilirubin AST ALT Alkaline Phosphatase Total Creatine Kinase 336 H CK-MB (Mass) 17.9 H Troponin I 0.8980 H* Total Protein Albumin Globulin Albumin/Globulin Ratio Triglycerides 112 D Cholesterol 226 H LDL Cholesterol Direct 167 H HDL Cholesterol 29 L Free T4 TSH 3rd Generation 1.32 05/09/18 05/09/18 05/09/18 07:35 14:21 17:55 WBC RBC Hgb Hct MCV MCH MCHC RDW Plt Count MPV Neut % (Auto) Lymph % (Auto) [place] % (Auto) Eos % (Auto) Baso % (Auto) Neut # (Auto) Lymph # (Auto) [place] # (Auto) Eos # (Auto) Baso # (Auto) PT 11.3 INR 1.0 APTT 38 H Sodium Potassium Chloride Carbon Dioxide Anion Gap BUN Creatinine Est GFR ( Amer) Est GFR (Non-Af Amer) POC Glucose (mg/dL) Random Glucose Hemoglobin A1c Calcium Total Bilirubin AST ALT Alkaline Phosphatase Total Creatine Kinase 1188 H CK-MB (Mass) 70.6 H Troponin I 7.6900 H* Total Protein Albumin Globulin Albumin/Globulin Ratio Triglycerides Cholesterol LDL Cholesterol Direct HDL Cholesterol Free T4 0.99 TSH 3rd Generation Assessment & Plan - Assessment and Plan (Free Text) Assessment: Patient seen and evaluated personally by me Plan of care d/w the medical claims assistant as documented
[2018-05-09] MEDS ORDERED: Nitroglycerin 50mg in D5W 50 MG/250 ML BOTTLE IV SCH (21:30)
[2018-05-10 06:16] LABS: BASO # 0.1 K/uL (0.0-0.2); BASO % 0.4 % (0.0-2.0); EOS % 0.1 % (0.0-4.0); HEMOGLOBIN 14.2 g/dL (12.0-18.0); LYMPH # 1.1 K/uL (1.0-4.3); LYMPH % 6.9 % (20.0-40.0); MEAN CELL VOLUME 83.1 fL (80.0-94.0); MEAN CORPUSCULAR HEMOGLOBIN 28.3 pg (27.0-31.0); MEAN CORPUSCULAR HGB CONC 34.1 g/dL (33.0-37.0); MEAN PLATELET VOLUME 9.3 fL (7.2-11.7); MONO # 1.1 K/uL (0.0-0.8); MONO % 7.2 % (0.0-10.0); NEUT # 13.3 K/uL (1.8-7.0); NEUT % 85.4 % (50.0-75.0); PLATELET COUNT 230 K/uL (130-400); RBC 5.02 Mil/uL (4.40-5.90); RED CELL DISTRIBUTION WIDTH 14.1 % (11.5-14.5); WHITE BLOOD COUNT 15.6 K/uL (4.8-10.8)
[2018-05-10 06:27] LABS: ALB/GLOB RATIO 1.4 (1.0-2.1); ALBUMIN 4.1 g/dL (3.5-5.0); ALT/SGPT 65 U/L (21-72); AST/SGOT 150 U/L (17-59); BLOOD UREA NITROGEN 15 mg/dL (9-20); CALCIUM 8.7 mg/dl (8.6-10.4); GFR NON-AFRICAN AMERICAN > 60
[2018-05-10] MEDS: (Novolin R) Insulin Human Regular 100 units/ml vial SC SCH ×4 (07:49→22:00)
[2018-05-10 08:31] LABS: BANDS 4 % (0-2); LYMPHOCYTE 7 % (20-40); METAMYELOCYTE 1 % (0-0); TOTAL CELLS COUNTED 100
[2018-05-10 08:32] LABS: MONOCYTE 9 % (0-10); NEUTROPHIL 79 % (50-75); OVALOCYTES SLIGHT; PLATELET ESTIMATE NORMAL (NORMAL)
[2018-05-10] MEDS: Metoprolol Succinate 50 mg XL Tab PO SCH (09:05)
--- NOTE | 2018-05-10 09:05 | CP.CCUPN ---
<Camilo Ferguson - Last Filed: 05/10/18 16:20> CCU Subjective - Physician Review Subjective (Free Text): 05/10/18 14:57 ICU progress note Patient seen and examined at bedside. He currently states he has no complaints of chest pain. He denies fever, chills, headache, dizziness, abdominal pain, nausea, vomiting, diarrhea, leg pain. He admits that he has not had a bowel movement recently. Patient is scheduled for cardiac catheterization with Dr. Chandler later today. CCU Objective - Vital Signs / Intake & Output Vital Signs (Last 4 hours): Vital Signs Pulse Resp BP Pulse Ox 05/10/18 07:00 69 18 96 05/10/18 06:58 117/60 05/10/18 06:00 85 19 97 05/10/18 05:58 109/56 L Intake and Output (Last 8hrs): Intake & Output 05/09/18 05/10/18 05/10/18 22:59 06:59 14:59 Intake Total 279 165.1 1.5 Output Total 200 500 Balance 79 -334.9 1.5 Weight 228 lb 8 oz 237 lb 9.6 oz Intake: IV 0 72 Intake, IV Amount 39 93.1 1.5 Left Antecubital 39 81.1 Left Forearm 12.0 1.5 Oral 240 Output: Urine 200 500 Urine, Voided 200 500 - Physical Exam Head: Positive for: Atraumatic, Normocephalic Pupils: Positive for: PERRL Extroacular Muscles: Positive for: EOMI Conjunctiva: Positive for: Normal Mouth: Positive for: Moist Mucous Membranes Respiratory/Chest: Positive for: Clear to Auscultation Cardiovascular: Positive for: Regular Rate and Rhythm Abdomen: Positive for: Normal Bowel Sounds. Negative for: Tenderness Upper Extremity: Positive for: NORMAL PULSES, Capillary Refill < 2s Lower Extremity: Positive for: NORMAL PULSES, Capillary Refill < 2 s. Negative for: CALF TENDERNESS Neurological: Positive for: GCS=15, Speech Normal Skin: Positive for: Warm, Dry Psychiatric: Positive for: Alert, Oriented x 3 - Medications Active Medications: Active Medications Generic Name Dose Route Start Last Admin Trade Name Freq PRN Reason Stop Dose Admin Amlodipine Besylate 5 mg 05/09/18 10:00 05/10/18 09:05 Norvasc PO 5 mg DAILY MARGOT Administration Aspirin 81 mg 05/10/18 10:00 05/10/18 09:05 Ecotrin PO 81 mg DAILY MARGOT Administration Clopidogrel Bisulfate 75 mg 05/09/18 10:00 05/10/18 09:05 Plavix PO 75 mg DAILY MARGOT Administration Dextrose 0 ml 05/09/18 04:34 Dextrose 50% Inj IV STAT PRN Hypoglycemia Protocol Protocol Dextrose 0 gm 05/09/18 04:34 Glutose 15 PO ONCE PRN Hypoglycemia Protocol Protocol Famotidine 20 mg 05/09/18 10:00 05/10/18 09:05 Pepcid PO 20 mg BID MARGOT Administration Glucagon 0 mg 05/09/18 04:34 Glucagen Diagnostic Kit IM STAT PRN Hypoglycemia Protocol Protocol Hydralazine HCl 10 mg 05/09/18 21:15 05/10/18 03:43 Apresoline IVP 10 mg Q6H MARGOT Administration Dextrose 1,000 mls @ 0 mls/hr 05/09/18 04:34 Dextrose 5% In Water 1000 Ml IV .Q0M PRN Hypoglycemia Protocol Protocol Per Protocol Heparin Sodium/Sodium Chloride 25,000 units in 250 mls @ 13.009 mls/hr 17:15 05/10/18 02:48 Heparin 03963 Units/250ml 1/2 Normal Saline IV 9 units/kg/hr .[id number] PRN 9.757 mls/hr PROTOCOL Titration Protocol 12 UNITS/KG/HR Nitroglycerin/Dextrose 50 mg in 250 mls @ 1.5 mls/hr 05/09/18 21:30 05/10/18 06:00 Nitroglycerin 50 Mg/250 Ml D5w IV 0 mcg/min .Q24H MARGOT 0 mls/hr Protocol Titration 5 MCG/MIN Insulin Human Regular 0 unit 05/09/18 07:30 05/10/18 07:49 Novolin R SC Not Given ACHS MARGOT Protocol Lisinopril 2.5 mg 05/09/18 10:00 05/09/18 09:58 Zestril PO 2.5 mg DAILY MARGOT Administration Metoprolol Succinate 50 mg 05/09/18 10:00 05/10/18 09:05 Toprol Xl PO 50 mg DAILY MARGOT Administration Nitroglycerin 0.4 mg 05/09/18 04:24 05/09/18 05:21 Nitrostat Sl Tab SL 0.4 mg PRN PRN Administration Pain, moderate (4-7) Rosuvastatin Calcium 20 mg 05/09/18 22:00 05/09/18 21:15 Crestor PO 20 mg HS MARGOT Administration - Patient Studies Lab Studies: Lab Studies 05/10/18 05/10/18 05/10/18 Range/Units 06:02 06:02 06:01 WBC 15.6 H D (4.8-10.8) K/uL RBC 5.02 (4.40-5.90) Mil/uL Hgb 14.2 (12.0-18.0) g/dL Hct 41.7 (35.0-51.0) % MCV 83.1 (80.0-94.0) fL MCH 28.3 (27.0-31.0) pg MCHC 34.1 (33.0-37.0) g/dL RDW 14.1 (11.5-14.5) % Plt Count 230 (130-400) K/uL MPV 9.3 (7.2-11.7) fL Neut % (Auto) 85.4 H (50.0-75.0) % Lymph % (Auto) 6.9 L (20.0-40.0) % [place] % (Auto) 7.2 (0.0-10.0) % Eos % (Auto) 0.1 (0.0-4.0) % Baso % (Auto) 0.4 (0.0-2.0) % Neut # (Auto) 13.3 H (1.8-7.0) K/uL Lymph # (Auto) 1.1 (1.0-4.3) K/uL [place] # (Auto) 1.1 H (0.0-0.8) K/uL Eos # (Auto) 0.0 (0.0-0.7) K/uL Baso # (Auto) 0.1 (0.0-0.2) K/uL Neutrophils % (Manual) 79 H (50-75) % Band Neutrophils % 4 H (0-2) % Lymphocytes % (Manual) 7 L (20-40) % Monocytes % (Manual) 9 (0-10) % Metamyelocytes % 1 H (0-0) % Platelet Estimate Normal (NORMAL) Ovalocytes Slight PT (9.7-12.2) SECONDS INR APTT 57 H D (21-34) SECONDS Sodium (132-148) mmol/L Potassium (3.6-5.2) mmol/L Chloride (98-107) mmol/L Carbon Dioxide (22-30) mmol/L Anion Gap (10-20) BUN (9-20) mg/dL Creatinine (0.8-1.5) mg/dL Est GFR ( Amer) Est GFR (Non-Af Amer) POC Glucose (mg/dL) (65-110) mg/dL Random Glucose (75-110) mg/dL Calcium (8.6-10.4) mg/dl Phosphorus 3.2 (2.5-4.5) mg/dL Magnesium 1.8 (1.6-2.3) mg/dL Total Bilirubin (0.2-1.3) mg/dL AST (17-59) U/L ALT (21-72) U/L Alkaline Phosphatase (38-126) U/L Total Creatine Kinase (55-170) U/L CK-MB (Mass) (0.0-3.38) ng/mL Troponin I (0.00-0.120) ng/mL Total Protein (6.3-8.3) g/dL Albumin (3.5-5.0) g/dL Globulin (2.2-3.9) gm/dL Albumin/Globulin Ratio (1.0-2.1) Triglycerides (0-149) mg/dL Cholesterol (0-199) mg/dL LDL Cholesterol Direct (0-129) mg/dL HDL Cholesterol (30-70) mg/dL TSH 3rd Generation (0.46-4.68) mIU/L 05/10/18 05/10/18 05/09/18 Range/Units 06:01 01:11 17:55 WBC (4.8-10.8) K/uL RBC (4.40-5.90) Mil/uL Hgb (12.0-18.0) g/dL Hct (35.0-51.0) % MCV (80.0-94.0) fL MCH (27.0-31.0) pg MCHC (33.0-37.0) g/dL RDW (11.5-14.5) % Plt Count (130-400) K/uL MPV (7.2-11.7) fL Neut % (Auto) (50.0-75.0) % Lymph % (Auto) (20.0-40.0) % [place] % (Auto) (0.0-10.0) % Eos % (Auto) (0.0-4.0) % Baso % (Auto) (0.0-2.0) % Neut # (Auto) (1.8-7.0) K/uL Lymph # (Auto) (1.0-4.3) K/uL [place] # (Auto) (0.0-0.8) K/uL Eos # (Auto) (0.0-0.7) K/uL Baso # (Auto) (0.0-0.2) K/uL Neutrophils % (Manual) (50-75) % Band Neutrophils % (0-2) % Lymphocytes % (Manual) (20-40) % Monocytes % (Manual) (0-10) % Metamyelocytes % (0-0) % Platelet Estimate (NORMAL) Ovalocytes PT 11.3 (9.7-12.2) SECONDS INR 1.0 APTT 133 H* D 38 H (21-34) SECONDS Sodium 137 (132-148) mmol/L Potassium 4.0 (3.6-5.2) mmol/L Chloride 100 (98-107) mmol/L Carbon Dioxide 25 (22-30) mmol/L Anion Gap 16 (10-20) BUN 15 (9-20) mg/dL Creatinine 0.7 L (0.8-1.5) mg/dL Est GFR ( Amer) > 60 Est GFR (Non-Af Amer) > 60 POC Glucose (mg/dL) (65-110) mg/dL Random Glucose 136 H (75-110) mg/dL Calcium 8.7 (8.6-10.4) mg/dl Phosphorus (2.5-4.5) mg/dL Magnesium (1.6-2.3) mg/dL Total Bilirubin 1.0 (0.2-1.3) mg/dL AST 150 H D (17-59) U/L ALT 65 (21-72) U/L Alkaline Phosphatase 79 (38-126) U/L Total Creatine Kinase (55-170) U/L CK-MB (Mass) (0.0-3.38) ng/mL Troponin I (0.00-0.120) ng/mL Total Protein 7.0 (6.3-8.3) g/dL Albumin 4.1 (3.5-5.0) g/dL Globulin 2.9 (2.2-3.9) gm/dL Albumin/Globulin Ratio 1.4 (1.0-2.1) Triglycerides (0-149) mg/dL Cholesterol (0-199) mg/dL LDL Cholesterol Direct (0-129) mg/dL HDL Cholesterol (30-70) mg/dL TSH 3rd Generation (0.46-4.68) mIU/L 05/09/18 05/09/18 05/09/18 Range/Units 14:21 07:35 06:50 WBC (4.8-10.8) K/uL RBC (4.40-5.90) Mil/uL Hgb (12.0-18.0) g/dL Hct (35.0-51.0) % MCV (80.0-94.0) fL MCH (27.0-31.0) pg MCHC (33.0-37.0) g/dL RDW (11.5-14.5) % Plt Count (130-400) K/uL MPV (7.2-11.7) fL Neut % (Auto) (50.0-75.0) % Lymph % (Auto) (20.0-40.0) % [place] % (Auto) (0.0-10.0) % Eos % (Auto) (0.0-4.0) % Baso % (Auto) (0.0-2.0) % Neut # (Auto) (1.8-7.0) K/uL Lymph # (Auto) (1.0-4.3) K/uL [place] # (Auto) (0.0-0.8) K/uL Eos # (Auto) (0.0-0.7) K/uL Baso # (Auto) (0.0-0.2) K/uL Neutrophils % (Manual) (50-75) % Band Neutrophils % (0-2) % Lymphocytes % (Manual) (20-40) % Monocytes % (Manual) (0-10) % Metamyelocytes % (0-0) % Platelet Estimate (NORMAL) Ovalocytes PT (9.7-12.2) SECONDS INR APTT (21-34) SECONDS Sodium (132-148) mmol/L Potassium (3.6-5.2) mmol/L Chloride (98-107) mmol/L Carbon Dioxide (22-30) mmol/L Anion Gap (10-20) BUN (9-20) mg/dL Creatinine (0.8-1.5) mg/dL Est GFR ( Amer) Est GFR (Non-Af Amer) POC Glucose (mg/dL) 137 H (65-110) mg/dL Random Glucose (75-110) mg/dL Calcium (8.6-10.4) mg/dl Phosphorus (2.5-4.5) mg/dL Magnesium (1.6-2.3) mg/dL Total Bilirubin (0.2-1.3) mg/dL AST (17-59) U/L ALT (21-72) U/L Alkaline Phosphatase (38-126) U/L Total Creatine Kinase 1188 H 336 H (55-170) U/L CK-MB (Mass) 70.6 H 17.9 H (0.0-3.38) ng/mL Troponin I 7.6900 H* 0.8980 H* (0.00-0.120) ng/mL Total Protein (6.3-8.3) g/dL Albumin (3.5-5.0) g/dL Globulin (2.2-3.9) gm/dL Albumin/Globulin Ratio (1.0-2.1) Triglycerides 112 D (0-149) mg/dL Cholesterol 226 H (0-199) mg/dL LDL Cholesterol Direct 167 H (0-129) mg/dL HDL Cholesterol 29 L (30-70) mg/dL TSH 3rd Generation 1.32 (0.46-4.68) mIU/L Laboratory Results - last 24 hr 05/09/18 05/09/18 05/09/18 06:50 07:35 14:21 WBC RBC Hgb Hct MCV MCH MCHC RDW Plt Count MPV Neut % (Auto) Lymph % (Auto) [place] % (Auto) Eos % (Auto) Baso % (Auto) Neut # (Auto) Lymph # (Auto) [place] # (Auto) Eos # (Auto) Baso # (Auto) Neutrophils % (Manual) Band Neutrophils % Lymphocytes % (Manual) Monocytes % (Manual) Metamyelocytes % Platelet Estimate Ovalocytes PT INR APTT Sodium Potassium Chloride Carbon Dioxide Anion Gap BUN Creatinine Est GFR ( Amer) Est GFR (Non-Af Amer) POC Glucose (mg/dL) 137 H Random Glucose Calcium Phosphorus Magnesium Total Bilirubin AST ALT Alkaline Phosphatase Total Creatine Kinase 336 H 1188 H CK-MB (Mass) 17.9 H 70.6 H Troponin I 0.8980 H* 7.6900 H* Total Protein Albumin Globulin Albumin/Globulin Ratio Triglycerides 112 D Cholesterol 226 H LDL Cholesterol Direct 167 H HDL Cholesterol 29 L TSH 3rd Generation 1.32 05/09/18 05/10/18 05/10/18 17:55 01:11 06:01 WBC RBC Hgb Hct MCV MCH MCHC RDW Plt Count MPV Neut % (Auto) Lymph % (Auto) [place] % (Auto) Eos % (Auto) Baso % (Auto) Neut # (Auto) Lymph # (Auto) [place] # (Auto) Eos # (Auto) Baso # (Auto) Neutrophils % (Manual) Band Neutrophils % Lymphocytes % (Manual) Monocytes % (Manual) Metamyelocytes % Platelet Estimate Ovalocytes PT 11.3 INR 1.0 APTT 38 H 133 H* D Sodium 137 Potassium 4.0 Chloride 100 Carbon Dioxide 25 Anion Gap 16 BUN 15 Creatinine 0.7 L Est GFR ( Amer) > 60 Est GFR (Non-Af Amer) > 60 POC Glucose (mg/dL) Random Glucose 136 H Calcium 8.7 Phosphorus Magnesium Total Bilirubin 1.0 AST 150 H D ALT 65 Alkaline Phosphatase 79 Total Creatine Kinase CK-MB (Mass) Troponin I Total Protein 7.0 Albumin 4.1 Globulin 2.9 Albumin/Globulin Ratio 1.4 Triglycerides Cholesterol LDL Cholesterol Direct HDL Cholesterol TSH 3rd Generation 05/10/18 05/10/18 05/10/18 06:01 06:02 06:02 WBC 15.6 H D RBC 5.02 Hgb 14.2 Hct 41.7 MCV 83.1 MCH 28.3 MCHC 34.1 RDW 14.1 Plt Count 230 MPV 9.3 Neut % (Auto) 85.4 H Lymph % (Auto) 6.9 L [place] % (Auto) 7.2 Eos % (Auto) 0.1 Baso % (Auto) 0.4 Neut # (Auto) 13.3 H Lymph # (Auto) 1.1 [place] # (Auto) 1.1 H Eos # (Auto) 0.0 Baso # (Auto) 0.1 Neutrophils % (Manual) 79 H Band Neutrophils % 4 H Lymphocytes % (Manual) 7 L Monocytes % (Manual) 9 Metamyelocytes % 1 H Platelet Estimate Normal Ovalocytes Slight PT INR APTT 57 H D Sodium Potassium Chloride Carbon Dioxide Anion Gap BUN Creatinine Est GFR ( Amer) Est GFR (Non-Af Amer) POC Glucose (mg/dL) Random Glucose Calcium Phosphorus 3.2 Magnesium 1.8 Total Bilirubin AST ALT Alkaline Phosphatase Total Creatine Kinase CK-MB (Mass) Troponin I Total Protein Albumin Globulin Albumin/Globulin Ratio Triglycerides Cholesterol LDL Cholesterol Direct HDL Cholesterol TSH 3rd Generation EKG/Cardiology Studies: Cardiology / EKG Studies 05/09/18 10:40 EKG [ELECTROCARDIOGRAM] Stat Comment: Mode Of Transportation: Reason For Exam: elevated ROMIs 05/09/18 14:15 ELECTROCARDIOGRAM Q8H Comment: Mode Of Transportation: Reason For Exam: chest pain 05/09/18 16:29 EKG [ELECTROCARDIOGRAM] Stat Comment: Mode Of Transportation: Reason For Exam: elevated troponins r/o acs 05/09/18 23:55 EKG [ELECTROCARDIOGRAM] Stat Comment: Mode Of Transportation: BED Reason For Exam: cp Fingerstick Blood Sugar Results: 129 Critical Care Progress Note - Nutrition Nutrition: Nutrition Category Date Time Status NPO Diet [DIET] Diets 05/09/18 Breakfast Active Assessment/Plan - Assessment and Plan (Free Text) Assessment: 68 year old male with history of CAD s/p 7 stents, NIDDM, HTN, HLD who presented for complaints of chest pain. Patient is scheduled for cardiac catheterization later today Plan: Neuro: Alert and oriented x3 Cardiovascular: Hx of CAD with 7 stents EKG: Sinus bradycardia at 54, normal axis, T wave inversions in leads V2-V6 CXR: no acute disease NSTEMI Troponins <0.0120 --> 0.8980 --> 7.6900 CKMB 1.12 --> 17.9 --> 70.6 Total creatinine kinase 132 --> 336 --> 1188 Norvasc 5mg PO daily ASA 81mg PO daily Plavix 75mg PO daily Lisinopril 2.5mg PO Metoprolol succinate 50mg PO daily Nitroglycerin 0.4mg SL PRN Crestor 20mg PO HS Heparin drip Hydralazine 10mg IVP Q6 Keep NPO Dr. Chandler consulted, help appreciated f/u ECHO Scheduled for cardiac cath later today Pulmonary: Oxygenating well on O2 2L via NC. CXR: no acute disease GI: Pepcid 20mg PO BID Continue to monitor BMs Renal: BUN 15 Cr 0.7 I&Os Endo: Hx of NIDDM ISS Hypoglycemic protocol TSH 1.32 T4 0.99 ID Afebrile White count 15.6 Heme: Hb 14.2/Hct 41.7 PPX: SCDs Case discussed with Dr. Marrero <Milan Marrero S - Last Filed: 05/10/18 17:04> CCU Subjective - Physician Review Critical Care Time Spent (in minutes): 30 CCU Objective - Vital Signs / Intake & Output Vital Signs (Last 4 hours): Vital Signs Temp Pulse Resp BP Pulse Ox 05/10/18 16:00 99.0 F 77 14 05/10/18 15:58 77 19 116/60 05/10/18 15:00 66 17 98 05/10/18 14:58 74 12 120/72 97 05/10/18 14:00 68 19 97 05/10/18 13:58 70 16 114/61 98 Intake and Output (Last 8hrs): Intake & Output 05/10/18 05/10/18 05/10/18 06:59 14:59 22:59 Intake Total 165.1 208.0 0 Output Total 500 525 0 Balance -334.9 -317.0 0 Weight 237 lb 9.6 oz Intake: IV 72 158 Intake, IV Amount 93.1 50.0 0 Left Antecubital 81.1 48.5 0 Left Forearm 12.0 1.5 0 Oral 0 0 Output: Urine 500 525 0 Urine, Voided 500 525 0 Stool 0 0 Emesis 0 0 Other: # Voids Urine, Voided 1 - Medications Active Medications: Active Medications Generic Name Dose Route Start Last Admin Trade Name Freq PRN Reason Stop Dose Admin Amlodipine Besylate 5 mg 05/09/18 10:00 05/10/18 09:05 Norvasc PO 5 mg DAILY MARGOT Administration Aspirin 81 mg 05/10/18 10:00 05/10/18 09:05 Ecotrin PO 81 mg DAILY MARGOT Administration Clopidogrel Bisulfate 75 mg 05/09/18 10:00 05/10/18 09:05 Plavix PO 75 mg DAILY MARGOT Administration Dextrose 0 ml 05/09/18 04:34 Dextrose 50% Inj IV STAT PRN Hypoglycemia Protocol Protocol Dextrose 0 gm 05/09/18 04:34 Glutose 15 PO ONCE PRN Hypoglycemia Protocol Protocol Famotidine 20 mg 05/09/18 10:00 05/10/18 09:05 Pepcid PO 20 mg BID MARGOT Administration Glucagon 0 mg 05/09/18 04:34 Glucagen Diagnostic Kit IM STAT PRN Hypoglycemia Protocol Protocol Hydralazine HCl 10 mg 05/09/18 21:15 05/10/18 09:09 Apresoline IVP 10 mg Q6H MARGOT Administration Dextrose 1,000 mls @ 0 mls/hr 05/09/18 04:34 Dextrose 5% In Water 1000 Ml IV .Q0M PRN Hypoglycemia Protocol Protocol Per Protocol Heparin Sodium/Sodium Chloride 25,000 units in 250 mls @ 13.009 mls/hr 17:15 05/10/18 13:00 Heparin 55390 Units/250ml 1/2 Normal Saline IV 0 units/kg/hr .[id number] PRN 0 mls/hr PROTOCOL Titration Protocol 12 UNITS/KG/HR Insulin Human Regular 0 unit 05/09/18 07:30 05/10/18 11:46 Novolin R SC Not Given ACHS MARGOT Protocol Lisinopril 2.5 mg 05/09/18 10:00 05/10/18 09:14 Zestril PO 2.5 mg DAILY MARGOT Administration Metoprolol Succinate 50 mg 05/09/18 10:00 05/10/18 09:05 Toprol Xl PO 50 mg DAILY MARGOT Administration Nitroglycerin 0.4 mg 05/09/18 04:24 05/09/18 05:21 Nitrostat Sl Tab SL 0.4 mg PRN PRN Administration Pain, moderate (4-7) Rosuvastatin Calcium 20 mg 05/09/18 22:00 05/09/18 21:15 Crestor PO 20 mg HS MARGOT Administration - Patient Studies Lab Studies: Lab Studies 08/31/18 08/31/18 08/31/18 Range/Units 15:59 11:28 07:32 WBC (4.8-10.8) K/uL RBC (4.40-5.90) Mil/uL Hgb (12.0-18.0) g/dL Hct (35.0-51.0) % MCV (80.0-94.0) fL MCH (27.0-31.0) pg MCHC (33.0-37.0) g/dL RDW (11.5-14.5) % Plt Count (130-400) K/uL MPV (7.2-11.7) fL Neut % (Auto) (50.0-75.0) % Lymph % (Auto) (20.0-40.0) % [place] % (Auto) (0.0-10.0) % Eos % (Auto) (0.0-4.0) % Baso % (Auto) (0.0-2.0) % Neut # (Auto) (1.8-7.0) K/uL Lymph # (Auto) (1.0-4.3) K/uL [place] # (Auto) (0.0-0.8) K/uL Eos # (Auto) (0.0-0.7) K/uL Baso # (Auto) (0.0-0.2) K/uL Neutrophils % (Manual) (50-75) % Band Neutrophils % (0-2) % Lymphocytes % (Manual) (20-40) % Monocytes % (Manual) (0-10) % Metamyelocytes % (0-0) % Platelet Estimate (NORMAL) Ovalocytes PT (9.7-12.2) SECONDS INR APTT (21-34) SECONDS Sodium (132-148) mmol/L Potassium (3.6-5.2) mmol/L Chloride (98-107) mmol/L Carbon Dioxide (22-30) mmol/L Anion Gap (10-20) BUN (9-20) mg/dL Creatinine (0.8-1.5) mg/dL Est GFR ( Amer) Est GFR (Non-Af Amer) POC Glucose (mg/dL) 127 H 128 H 129 H (65-110) mg/dL Random Glucose (75-110) mg/dL Calcium (8.6-10.4) mg/dl Phosphorus (2.5-4.5) mg/dL Magnesium (1.6-2.3) mg/dL Total Bilirubin (0.2-1.3) mg/dL AST (17-59) U/L ALT (21-72) U/L Alkaline Phosphatase (38-126) U/L Total Protein (6.3-8.3) g/dL Albumin (3.5-5.0) g/dL Globulin (2.2-3.9) gm/dL Albumin/Globulin Ratio (1.0-2.1) 05/10/18 05/10/18 05/10/18 Range/Units 06:02 06:02 06:01 WBC 15.6 H D (4.8-10.8) K/uL RBC 5.02 (4.40-5.90) Mil/uL Hgb 14.2 (12.0-18.0) g/dL Hct 41.7 (35.0-51.0) % MCV 83.1 (80.0-94.0) fL MCH 28.3 (27.0-31.0) pg MCHC 34.1 (33.0-37.0) g/dL RDW 14.1 (11.5-14.5) % Plt Count 230 (130-400) K/uL MPV 9.3 (7.2-11.7) fL Neut % (Auto) 85.4 H (50.0-75.0) % Lymph % (Auto) 6.9 L (20.0-40.0) % [place] % (Auto) 7.2 (0.0-10.0) % Eos % (Auto) 0.1 (0.0-4.0) % Baso % (Auto) 0.4 (0.0-2.0) % Neut # (Auto) 13.3 H (1.8-7.0) K/uL Lymph # (Auto) 1.1 (1.0-4.3) K/uL [place] # (Auto) 1.1 H (0.0-0.8) K/uL Eos # (Auto) 0.0 (0.0-0.7) K/uL Baso # (Auto) 0.1 (0.0-0.2) K/uL Neutrophils % (Manual) 79 H (50-75) % Band Neutrophils % 4 H (0-2) % Lymphocytes % (Manual) 7 L (20-40) % Monocytes % (Manual) 9 (0-10) % Metamyelocytes % 1 H (0-0) % Platelet Estimate Normal (NORMAL) Ovalocytes Slight PT (9.7-12.2) SECONDS INR APTT 57 H D (21-34) SECONDS Sodium (132-148) mmol/L Potassium (3.6-5.2) mmol/L Chloride (98-107) mmol/L Carbon Dioxide (22-30) mmol/L Anion Gap (10-20) BUN (9-20) mg/dL Creatinine (0.8-1.5) mg/dL Est GFR ( Amer) Est GFR (Non-Af Amer) POC Glucose (mg/dL) (65-110) mg/dL Random Glucose (75-110) mg/dL Calcium (8.6-10.4) mg/dl Phosphorus 3.2 (2.5-4.5) mg/dL Magnesium 1.8 (1.6-2.3) mg/dL Total Bilirubin (0.2-1.3) mg/dL AST (17-59) U/L ALT (21-72) U/L Alkaline Phosphatase (38-126) U/L Total Protein (6.3-8.3) g/dL Albumin (3.5-5.0) g/dL Globulin (2.2-3.9) gm/dL Albumin/Globulin Ratio (1.0-2.1) 05/10/18 05/10/18 05/09/18 Range/Units 06:01 01:11 22:27 WBC (4.8-10.8) K/uL RBC (4.40-5.90) Mil/uL Hgb (12.0-18.0) g/dL Hct (35.0-51.0) % MCV (80.0-94.0) fL MCH (27.0-31.0) pg MCHC (33.0-37.0) g/dL RDW (11.5-14.5) % Plt Count (130-400) K/uL MPV (7.2-11.7) fL Neut % (Auto) (50.0-75.0) % Lymph % (Auto) (20.0-40.0) % [place] % (Auto) (0.0-10.0) % Eos % (Auto) (0.0-4.0) % Baso % (Auto) (0.0-2.0) % Neut # (Auto) (1.8-7.0) K/uL Lymph # (Auto) (1.0-4.3) K/uL [place] # (Auto) (0.0-0.8) K/uL Eos # (Auto) (0.0-0.7) K/uL Baso # (Auto) (0.0-0.2) K/uL Neutrophils % (Manual) (50-75) % Band Neutrophils % (0-2) % Lymphocytes % (Manual) (20-40) % Monocytes % (Manual) (0-10) % Metamyelocytes % (0-0) % Platelet Estimate (NORMAL) Ovalocytes PT (9.7-12.2) SECONDS INR APTT 133 H* D (21-34) SECONDS Sodium 137 (132-148) mmol/L Potassium 4.0 (3.6-5.2) mmol/L Chloride 100 (98-107) mmol/L Carbon Dioxide 25 (22-30) mmol/L Anion Gap 16 (10-20) BUN 15 (9-20) mg/dL Creatinine 0.7 L (0.8-1.5) mg/dL Est GFR ( Amer) > 60 Est GFR (Non-Af Amer) > 60 POC Glucose (mg/dL) 128 H (65-110) mg/dL Random Glucose 136 H (75-110) mg/dL Calcium 8.7 (8.6-10.4) mg/dl Phosphorus (2.5-4.5) mg/dL Magnesium (1.6-2.3) mg/dL Total Bilirubin 1.0 (0.2-1.3) mg/dL AST 150 H D (17-59) U/L ALT 65 (21-72) U/L Alkaline Phosphatase 79 (38-126) U/L Total Protein 7.0 (6.3-8.3) g/dL Albumin 4.1 (3.5-5.0) g/dL Globulin 2.9 (2.2-3.9) gm/dL Albumin/Globulin Ratio 1.4 (1.0-2.1) 05/09/18 05/09/18 Range/Units 17:55 17:03 WBC (4.8-10.8) K/uL RBC (4.40-5.90) Mil/uL Hgb (12.0-18.0) g/dL Hct (35.0-51.0) % MCV (80.0-94.0) fL MCH (27.0-31.0) pg MCHC (33.0-37.0) g/dL RDW (11.5-14.5) % Plt Count (130-400) K/uL MPV (7.2-11.7) fL Neut % (Auto) (50.0-75.0) % Lymph % (Auto) (20.0-40.0) % [place] % (Auto) (0.0-10.0) % Eos % (Auto) (0.0-4.0) % Baso % (Auto) (0.0-2.0) % Neut # (Auto) (1.8-7.0) K/uL Lymph # (Auto) (1.0-4.3) K/uL [place] # (Auto) (0.0-0.8) K/uL Eos # (Auto) (0.0-0.7) K/uL Baso # (Auto) (0.0-0.2) K/uL Neutrophils % (Manual) (50-75) % Band Neutrophils % (0-2) % Lymphocytes % (Manual) (20-40) % Monocytes % (Manual) (0-10) % Metamyelocytes % (0-0) % Platelet Estimate (NORMAL) Ovalocytes PT 11.3 (9.7-12.2) SECONDS INR 1.0 APTT 38 H (21-34) SECONDS Sodium (132-148) mmol/L Potassium (3.6-5.2) mmol/L Chloride (98-107) mmol/L Carbon Dioxide (22-30) mmol/L Anion Gap (10-20) BUN (9-20) mg/dL Creatinine (0.8-1.5) mg/dL Est GFR ( Amer) Est GFR (Non-Af Amer) POC Glucose (mg/dL) 126 H (65-110) mg/dL Random Glucose (75-110) mg/dL Calcium (8.6-10.4) mg/dl Phosphorus (2.5-4.5) mg/dL Magnesium (1.6-2.3) mg/dL Total Bilirubin (0.2-1.3) mg/dL AST (17-59) U/L ALT (21-72) U/L Alkaline Phosphatase (38-126) U/L Total Protein (6.3-8.3) g/dL Albumin (3.5-5.0) g/dL Globulin (2.2-3.9) gm/dL Albumin/Globulin Ratio (1.0-2.1) Laboratory Results - last 24 hr 05/09/18 05/09/18 05/09/18 17:03 17:55 22:27 WBC RBC Hgb Hct MCV MCH MCHC RDW Plt Count MPV Neut % (Auto) Lymph % (Auto) [place] % (Auto) Eos % (Auto) Baso % (Auto) Neut # (Auto) Lymph # (Auto) [place] # (Auto) Eos # (Auto) Baso # (Auto) Neutrophils % (Manual) Band Neutrophils % Lymphocytes % (Manual) Monocytes % (Manual) Metamyelocytes % Platelet Estimate Ovalocytes PT 11.3 INR 1.0 APTT 38 H Sodium Potassium Chloride Carbon Dioxide Anion Gap BUN Creatinine Est GFR ( Amer) Est GFR (Non-Af Amer) POC Glucose (mg/dL) 126 H 128 H Random Glucose Calcium Phosphorus Magnesium Total Bilirubin AST ALT Alkaline Phosphatase Total Protein Albumin Globulin Albumin/Globulin Ratio 05/10/18 05/10/18 05/10/18 01:11 06:01 06:01 WBC RBC Hgb Hct MCV MCH MCHC RDW Plt Count MPV Neut % (Auto) Lymph % (Auto) [place] % (Auto) Eos % (Auto) Baso % (Auto) Neut # (Auto) Lymph # (Auto) [place] # (Auto) Eos # (Auto) Baso # (Auto) Neutrophils % (Manual) Band Neutrophils % Lymphocytes % (Manual) Monocytes % (Manual) Metamyelocytes % Platelet Estimate Ovalocytes PT INR APTT 133 H* D Sodium 137 Potassium 4.0 Chloride 100 Carbon Dioxide 25 Anion Gap 16 BUN 15 Creatinine 0.7 L Est GFR ( Amer) > 60 Est GFR (Non-Af Amer) > 60 POC Glucose (mg/dL) Random Glucose 136 H Calcium 8.7 Phosphorus 3.2 Magnesium 1.8 Total Bilirubin 1.0 AST 150 H D ALT 65 Alkaline Phosphatase 79 Total Protein 7.0 Albumin 4.1 Globulin 2.9 Albumin/Globulin Ratio 1.4 05/10/18 05/10/18 05/10/18 06:02 06:02 07:32 WBC 15.6 H D RBC 5.02 Hgb 14.2 Hct 41.7 MCV 83.1 MCH 28.3 MCHC 34.1 RDW 14.1 Plt Count 230 MPV 9.3 Neut % (Auto) 85.4 H Lymph % (Auto) 6.9 L [place] % (Auto) 7.2 Eos % (Auto) 0.1 Baso % (Auto) 0.4 Neut # (Auto) 13.3 H Lymph # (Auto) 1.1 [place] # (Auto) 1.1 H Eos # (Auto) 0.0 Baso # (Auto) 0.1 Neutrophils % (Manual) 79 H Band Neutrophils % 4 H Lymphocytes % (Manual) 7 L Monocytes % (Manual) 9 Metamyelocytes % 1 H Platelet Estimate Normal Ovalocytes Slight PT INR APTT 57 H D Sodium Potassium Chloride Carbon Dioxide Anion Gap BUN Creatinine Est GFR ( Amer) Est GFR (Non-Af Amer) POC Glucose (mg/dL) 129 H Random Glucose Calcium Phosphorus Magnesium Total Bilirubin AST ALT Alkaline Phosphatase Total Protein Albumin Globulin Albumin/Globulin Ratio 05/10/18 05/10/18 11:28 15:59 WBC RBC Hgb Hct MCV MCH MCHC RDW Plt Count MPV Neut % (Auto) Lymph % (Auto) [place] % (Auto) Eos % (Auto) Baso % (Auto) Neut # (Auto) Lymph # (Auto) [place] # (Auto) Eos # (Auto) Baso # (Auto) Neutrophils % (Manual) Band Neutrophils % Lymphocytes % (Manual) Monocytes % (Manual) Metamyelocytes % Platelet Estimate Ovalocytes PT INR APTT Sodium Potassium Chloride Carbon Dioxide Anion Gap BUN Creatinine Est GFR ( Amer) Est GFR (Non-Af Amer) POC Glucose (mg/dL) 128 H 127 H Random Glucose Calcium Phosphorus Magnesium Total Bilirubin AST ALT Alkaline Phosphatase Total Protein Albumin Globulin Albumin/Globulin Ratio EKG/Cardiology Studies: Cardiology / EKG Studies 05/09/18 16:29 EKG [ELECTROCARDIOGRAM] Stat Comment: Mode Of Transportation: Reason For Exam: elevated troponins r/o acs 05/09/18 23:55 EKG [ELECTROCARDIOGRAM] Stat Comment: Mode Of Transportation: BED Reason For Exam: cp Critical Care Progress Note - Nutrition Nutrition: Nutrition Category Date Time Status NPO Diet [DIET] Diets 05/10/18 Lunch Active Attending/Attestation - Attestation I have personally seen and examined this patient.: Yes I have fully participated in the care of the patient.: Yes I have reviewed all pertinent clinical information: Yes Notes (Text): 05/10/18 17:04 patient seen and examinedin the intensive care unit. Patient is scheduled for cardiac catheter today Continue present treatment
[2018-05-10] MEDS: Enoxaparin 120 mg Syringe SC SCH (10:58)
--- NOTE | 2018-05-10 15:09 | CP.PCM.PN ---
Subjective - Date & Time of Evaluation Date of Evaluation: 05/10/18 Time of Evaluation: 15:09 - Subjective Subjective: Patient denies chest pain. lying comfortable,NPO for cath this evening. Objective - Vital Signs/Intake and Output Vital Signs (last 24 hours): Temp Pulse Resp BP Pulse Ox 98.1 F 72 15 122/71 97 05/10/18 08:00 05/10/18 10:00 05/10/18 10:00 05/10/18 09:58 05/10/18 10:00 Intake and Output: 05/10/18 05/10/18 06:59 18:59 Intake Total 444.1 138.6 Output Total 700 75 Balance -255.9 63.6 - Medications Medications: Current Medications Amlodipine Besylate (Norvasc) 5 mg PO DAILY [facility] Last Admin: 05/10/18 09:05 Dose: 5 mg Aspirin (Ecotrin) 81 mg PO DAILY [facility] Last Admin: 05/10/18 09:05 Dose: 81 mg Clopidogrel Bisulfate (Plavix) 75 mg PO DAILY [facility] Last Admin: 05/10/18 09:05 Dose: 75 mg Dextrose (Dextrose 50% Inj) 0 ml IV STAT PRN; Protocol PRN Reason: Hypoglycemia Protocol Dextrose (Glutose 15) 0 gm PO ONCE PRN; Protocol PRN Reason: Hypoglycemia Protocol Famotidine (Pepcid) 20 mg PO BID [facility] Last Admin: 05/10/18 09:05 Dose: 20 mg Glucagon (Glucagen Diagnostic Kit) 0 mg IM STAT PRN; Protocol PRN Reason: Hypoglycemia Protocol Hydralazine HCl (Apresoline) 10 mg IVP Q6H [facility] Last Admin: 05/10/18 09:09 Dose: 10 mg Dextrose (Dextrose 5% In Water 1000 Ml) 1,000 mls @ 0 mls/hr IV .Q0M PRN; Protocol; Per Protocol PRN Reason: Hypoglycemia Protocol Heparin Sodium/Sodium Chloride (Heparin 71341 Units/250ml 1/2 Normal Saline) 25 ,000 units in 250 mls @ 13.009 mls/hr IV .[id number] PRN; Protocol; 12 UNITS/KG/HR PRN Reason: PROTOCOL Last Titration: 05/10/18 08:00 Dose: 9 units/kg/hr, 9.757 mls/hr Nitroglycerin/Dextrose (Nitroglycerin 50 Mg/250 Ml D5w) 50 mg in 250 mls @ 1.5 mls/hr IV .Q24H [facility]; 5 MCG/MIN PRN Reason: Protocol Last Titration: 05/10/18 06:00 Dose: 0 mcg/min, 0 mls/hr Insulin Human Regular (Novolin R) 0 unit SC ACHS [facility] PRN Reason: Protocol Last Admin: 05/10/18 11:46 Dose: Not Given Lisinopril (Zestril) 2.5 mg PO DAILY [facility] Last Admin: 05/10/18 09:14 Dose: 2.5 mg Metoprolol Succinate (Toprol Xl) 50 mg PO DAILY [facility] Last Admin: 05/10/18 09:05 Dose: 50 mg Nitroglycerin (Nitrostat Sl Tab) 0.4 mg SL PRN PRN PRN Reason: Pain, moderate (4-7) Last Admin: 05/09/18 05:21 Dose: 0.4 mg Rosuvastatin Calcium (Crestor) 20 mg PO HS [facility] Last Admin: 05/09/18 21:15 Dose: 20 mg - Labs Labs: 05/10/18 06:02 05/10/18 06:01 PT 11.3 SECONDS (9.7-12.2) 05/09/18 17:55 INR 1.0 05/09/18 17:55 APTT 57 SECONDS (21-34) H D 05/10/18 06:02 - Constitutional Appears: Non-toxic, No Acute Distress - Head Exam Head Exam: NORMAL INSPECTION - Eye Exam Eye Exam: Normal appearance Pupil Exam: NORMAL ACCOMODATION - ENT Exam ENT Exam: Mucous Membranes Moist - Neck Exam Neck Exam: Full ROM - Respiratory Exam Respiratory Exam: Clear to Ausculation Bilateral, NORMAL BREATHING PATTERN - Cardiovascular Exam Cardiovascular Exam: REGULAR RHYTHM - GI/Abdominal Exam GI & Abdominal Exam: Soft, Normal Bowel Sounds - Extremities Exam Extremities Exam: Full ROM - Back Exam Back Exam: NORMAL INSPECTION - Neurological Exam Neurological Exam: Awake, Oriented x3 - Psychiatric Exam Psychiatric exam: Normal Mood - Skin Skin Exam: Dry Assessment and Plan - Assessment and Plan (Free Text) Assessment: This is 68 years obese male with history of CAD s/p 7 stents last stent by Dr Chandler in jun 2017, NIDDM, HTN, HLD who presented for complaints of chest pain. patient is noncompliance with diet and medication. He wasn't taking his meds last 3 months.His troponin is high.NSTEMI Patient is scheduled for cardiac catheterization later today Plan: 1.NSTMI/Chest pain Hx of CAD with 7 stents Troponins 7.6 continue current meds,Norvasc 5mg PO daily,Lisinopril,metoprolol,nitroglycerin, Crestor,hydralazine ASA 81mg PO daily ,Plavix 75mg PO daily and heparin drip Scheduled for cardiac cath later today 2.DM Patient not currently taking any at home medications Monitor sugar 3.HLD Rosuvastatin 20mg PO HS 4.Hx of Tobacco Abuse Smoking cessation encouraged 5.Prophylactic Measures DVT-Heparin GI- Pepcid 20mg PO BID
--- NOTE | 2018-05-10 19:49 | CARD ---
APPROVED REPORT Date of service: 05/09/2018 EKG Measurement Heart [id number] <Conclusion> Normal sinus rhythm Left anterior fascicular block ST & T wave abnormality, consider lateral ischemia Abnormal ECG
--- NOTE | 2018-05-10 19:50 | CARD ---
APPROVED REPORT Date of service: 05/09/2018 EKG Measurement Heart [id number] <Conclusion> Sinus bradycardia Left anterior fascicular block Minimal voltage criteria for LVH, may be normal variant ST & T wave abnormality, consider lateral ischemia Abnormal ECG
[2018-05-10] MEDS ORDERED: Midazolam 2 MG/2 ML VIAL ONE (20:53)
[2018-05-10] MEDS ORDERED: Lidocaine 2% MPF (5 ml) Inj ONE ×2 (20:53→20:58)
[2018-05-10] MEDS ORDERED: Iodixanol 320 MG/ML 100 ML BOTTLE IV ONE (21:09)
--- NOTE | 2018-05-10 21:21 | CP.PCM.PN ---
Subjective - Date & Time of Evaluation Date of Evaluation: 05/10/18 Time of Evaluation: 21:18 - Subjective Subjective: Patient s/p cath 1. L Main: Patent 2. LAD: Mid stent 20% ISR, Distal stent patent 3. L Cx: Stent patent, OM 1 99% stenosis 4. RCA: Dominant and patent, Small PLV 80% stenosis 5. LV: EF 55%, EDP 18 Small Vessel disease PCI Vs. Maximal Medical therapy Will make decision tomorrow OOB to ambulate after 3-4 hours Hydration D/C Heparin drip ASA, Plavix, Statins, B blockers and DVT/GI prophylaxis Objective - Vital Signs/Intake and Output Vital Signs (last 24 hours): Temp Pulse Resp BP Pulse Ox 99.6 F 73 15 114/62 100 05/10/18 20:00 05/10/18 20:00 05/10/18 20:00 05/10/18 19:58 05/10/18 20:00 Intake and Output: 05/10/18 05/11/18 18:59 06:59 Intake Total 208.0 0 Output Total 875 200 Balance -667.0 -200 - Medications Medications: Current Medications Amlodipine Besylate (Norvasc) 5 mg PO DAILY [facility] Last Admin: 05/10/18 09:05 Dose: 5 mg Aspirin (Ecotrin) 81 mg PO DAILY [facility] Last Admin: 05/10/18 09:05 Dose: 81 mg Clopidogrel Bisulfate (Plavix) 75 mg PO DAILY [facility] Last Admin: 05/10/18 09:05 Dose: 75 mg Dextrose (Dextrose 50% Inj) 0 ml IV STAT PRN; Protocol PRN Reason: Hypoglycemia Protocol Dextrose (Glutose 15) 0 gm PO ONCE PRN; Protocol PRN Reason: Hypoglycemia Protocol Famotidine (Pepcid) 20 mg PO BID [facility] Last Admin: 05/10/18 18:26 Dose: 20 mg Glucagon (Glucagen Diagnostic Kit) 0 mg IM STAT PRN; Protocol PRN Reason: Hypoglycemia Protocol Hydralazine HCl (Apresoline) 10 mg IVP Q6H [facility] Last Admin: 05/10/18 15:30 Dose: 10 mg Dextrose (Dextrose 5% In Water 1000 Ml) 1,000 mls @ 0 mls/hr IV .Q0M PRN; Protocol; Per Protocol PRN Reason: Hypoglycemia Protocol Insulin Human Regular (Novolin R) 0 unit SC ACHS [facility] PRN Reason: Protocol Last Admin: 05/10/18 18:13 Dose: Not Given Lisinopril (Zestril) 2.5 mg PO DAILY [facility] Last Admin: 05/10/18 09:14 Dose: 2.5 mg Metoprolol Succinate (Toprol Xl) 50 mg PO DAILY [facility] Last Admin: 05/10/18 09:05 Dose: 50 mg Nitroglycerin (Nitrostat Sl Tab) 0.4 mg SL PRN PRN PRN Reason: Pain, moderate (4-7) Last Admin: 05/09/18 05:21 Dose: 0.4 mg Rosuvastatin Calcium (Crestor) 20 mg PO HS [facility] Last Admin: 05/09/18 21:15 Dose: 20 mg - Labs Labs: 05/10/18 06:02 05/10/18 06:01 PT 11.3 SECONDS (9.7-12.2) 05/09/18 17:55 INR 1.0 05/09/18 17:55 APTT 57 SECONDS (21-34) H D 05/10/18 06:02
[2018-05-10] MEDS: Sodium Chloride 0.9% 1,000 ML IV SCH (22:00)
[2018-05-11 06:45] LABS: BASO # 0.1 K/uL (0.0-0.2); BASO % 0.6 % (0.0-2.0); EOS % 0.3 % (0.0-4.0); HEMOGLOBIN 13.3 g/dL (12.0-18.0); LYMPH # 1.1 K/uL (1.0-4.3); LYMPH % 8.9 % (20.0-40.0); MEAN CELL VOLUME 83.3 fL (80.0-94.0); MEAN CORPUSCULAR HEMOGLOBIN 28.1 pg (27.0-31.0); MEAN CORPUSCULAR HGB CONC 33.7 g/dL (33.0-37.0); MEAN PLATELET VOLUME 9.3 fL (7.2-11.7); MONO # 1.2 K/uL (0.0-0.8); MONO % 9.8 % (0.0-10.0); NEUT # 9.9 K/uL (1.8-7.0); NEUT % 80.4 % (50.0-75.0); PLATELET COUNT 218 K/uL (130-400); RBC 4.73 Mil/uL (4.40-5.90); RED CELL DISTRIBUTION WIDTH 14.4 % (11.5-14.5); WHITE BLOOD COUNT 12.3 K/uL (4.8-10.8)
[2018-05-11 07:00] LABS: ALB/GLOB RATIO 1.2 (1.0-2.1); ALBUMIN 3.7 g/dL (3.5-5.0); ALT/SGPT 48 U/L (21-72); AST/SGOT 87 U/L (17-59); BLOOD UREA NITROGEN 16 mg/dL (9-20); CALCIUM 8.1 mg/dl (8.6-10.4); GFR NON-AFRICAN AMERICAN > 60
[2018-05-11] MEDS: (Novolin R) Insulin Human Regular 100 units/ml vial SC SCH ×4 (07:30→22:50)
[2018-05-11 08:34] LABS: LYMPHOCYTE 9 % (20-40); MONOCYTE 7 % (0-10); NEUTROPHIL 84 % (50-75); TOTAL CELLS COUNTED 100
[2018-05-11 08:35] LABS: ANISOCYTOSIS SLIGHT; PLATELET ESTIMATE NORMAL (NORMAL)
[2018-05-11 08:36] LABS: OVALOCYTES SLIGHT
[2018-05-11] MEDS: Enoxaparin 40 mg Syringe SC SCH (10:28)
[2018-05-11] MEDS: Metoprolol Succinate 50 mg XL Tab PO SCH (10:29)
--- NOTE | 2018-05-11 10:31 | CP.PCM.PN ---
Subjective - Date & Time of Evaluation Date of Evaluation: 05/11/18 Time of Evaluation: 10:31 - Subjective Subjective: Patient denies chest pain,sitting comfortable on the chair,denies discomfort Patient wants to go home. Discussed about medication compliance and cath report. Awaiting to talk to Dr Chandler Objective - Vital Signs/Intake and Output Vital Signs (last 24 hours): Temp Pulse Resp BP Pulse Ox 98.3 F 67 13 117/69 98 05/11/18 04:00 05/11/18 06:00 05/11/18 06:00 05/11/18 05:58 05/11/18 06:00 Intake and Output: 05/11/18 05/11/18 06:59 18:59 Intake Total 780 Output Total 850 Balance -70 - Medications Medications: Current Medications Amlodipine Besylate (Norvasc) 5 mg PO DAILY [facility] Last Admin: 05/11/18 10:29 Dose: 5 mg Aspirin (Ecotrin) 81 mg PO DAILY [facility] Last Admin: 05/11/18 10:29 Dose: 81 mg Clopidogrel Bisulfate (Plavix) 75 mg PO DAILY [facility] Last Admin: 05/11/18 10:29 Dose: 75 mg Dextrose (Dextrose 50% Inj) 0 ml IV STAT PRN; Protocol PRN Reason: Hypoglycemia Protocol Dextrose (Glutose 15) 0 gm PO ONCE PRN; Protocol PRN Reason: Hypoglycemia Protocol Enoxaparin Sodium (Lovenox) 40 mg SC DAILY [facility] Last Admin: 05/11/18 10:28 Dose: 40 mg Famotidine (Pepcid) 20 mg PO BID [facility] Last Admin: 05/11/18 10:29 Dose: 20 mg Glucagon (Glucagen Diagnostic Kit) 0 mg IM STAT PRN; Protocol PRN Reason: Hypoglycemia Protocol Hydralazine HCl (Apresoline) 10 mg IVP Q6H [facility] Last Admin: 05/11/18 03:12 Dose: Not Given Dextrose (Dextrose 5% In Water 1000 Ml) 1,000 mls @ 0 mls/hr IV .Q0M PRN; Protocol; Per Protocol PRN Reason: Hypoglycemia Protocol Sodium Chloride (Sodium Chloride 0.9%) 1,000 mls @ 60 mls/hr IV .[id number] [facility] Last Admin: 05/10/18 22:00 Dose: 60 mls/hr Insulin Human Regular (Novolin R) 0 unit SC ACHS [facility] PRN Reason: Protocol Last Admin: 05/11/18 07:30 Dose: Not Given Lisinopril (Zestril) 2.5 mg PO DAILY [facility] Last Admin: 05/10/18 09:14 Dose: 2.5 mg Metoprolol Succinate (Toprol Xl) 50 mg PO DAILY [facility] Last Admin: 05/11/18 10:29 Dose: 50 mg Nitroglycerin (Nitrostat Sl Tab) 0.4 mg SL PRN PRN PRN Reason: Pain, moderate (4-7) Last Admin: 05/09/18 05:21 Dose: 0.4 mg Rosuvastatin Calcium (Crestor) 20 mg PO HS [facility] Last Admin: 05/10/18 22:54 Dose: 20 mg - Labs Labs: 05/11/18 06:34 05/11/18 06:28 PT 11.3 SECONDS (9.7-12.2) 05/09/18 17:55 INR 1.0 05/09/18 17:55 APTT 57 SECONDS (21-34) H D 05/10/18 06:02 - Constitutional Appears: Non-toxic, No Acute Distress - Head Exam Head Exam: NORMAL INSPECTION - Eye Exam Eye Exam: Normal appearance - ENT Exam ENT Exam: Mucous Membranes Moist - Neck Exam Neck Exam: Full ROM - Respiratory Exam Respiratory Exam: Clear to Ausculation Bilateral, NORMAL BREATHING PATTERN - Cardiovascular Exam Cardiovascular Exam: REGULAR RHYTHM - GI/Abdominal Exam GI & Abdominal Exam: Soft, Normal Bowel Sounds - Extremities Exam Extremities Exam: Full ROM - Back Exam Back Exam: NORMAL INSPECTION - Neurological Exam Neurological Exam: Awake, Oriented x3 - Psychiatric Exam Psychiatric exam: Normal Mood - Skin Skin Exam: Dry Assessment and Plan - Assessment and Plan (Free Text) Assessment: This is 68 years obese male with history of CAD s/p 7 stents last stent by Dr Chandler in jun 2017, NIDDM, HTN, HLD who presented for complaints of chest pain. patient is noncompliance with diet and medication. He wasn't taking his meds last 3 months.His troponin is high.NSTEMI S/P Cardiac cath yesterday. Left Main is Patent,LAD with Mid stent 20% ISR, Distal stent patent,. L Cx Stent patent, OM 1 99% stenosis His RCA Dominant and patent, Small PLV 80% stenosis LV: EF 55% Plan: 1.NSTMI/Chest pain Hx of CAD with 7 stents Troponins 7.6 continue current meds,Norvasc 5mg PO daily,Lisinopril,metoprolol,nitroglycerin, Crestor,hydralazine ASA 81mg PO daily ,Plavix 75mg PO daily and heparin drip cardiac cath - Left Main is Patent,LAD with Mid stent 20% ISR, Distal stent patent,. L Cx Stent patent, OM 1 99% stenosis His RCA Dominant and patent, Small PLV 80% stenosis, LV: EF 55% As per DR Chandler Its Small Vessel disease PCI Vs. Maximal Medical therapy we will follow his recommendation 2.DM Patient not currently taking any at home medications Monitor sugar 3.HLD Rosuvastatin 20mg PO HS 4.Noncompliance with medication Discussed about taking medication to prevent further heart problem His spouse was at bedside 4.Hx of Tobacco Abuse Smoking cessation encouraged 5.Prophylactic Measures DVT-Heparin GI- Pepcid 20mg PO BID
[2018-05-11] MEDS: Sodium Chloride 0.9% 1,000 ML IV SCH (14:00)
--- NOTE | 2018-05-11 17:51 | CP.CCUPN ---
CCU Subjective - Physician Review Subjective (Free Text): 05/11/18 18:33 Patient seen and examined at bedside in the ICU. No acute events overnight. S/ p cardiac cath yesterday. As per Dr. Chandler, pending final determination of whether to procedure with maximal medical therapy or diagnostic cath. Patient anxious to know which he will do. Now off heparin drip as per cardio. Pt denies any chest pain, shortness of breath, abd pain, dysuria, hematuria, constipation. CCU Objective - Vital Signs / Intake & Output Vital Signs (Last 4 hours): Vital Signs Temp Pulse Resp BP Pulse Ox 05/11/18 17:00 76 8 L 94 L 05/11/18 16:59 72 5 L 95/62 L 96 05/11/18 16:02 75 10 L 92/71 L 96 05/11/18 16:00 98.4 F 78 97 05/11/18 15:00 72 18 93 L 05/11/18 14:58 76 20 90/49 L 93 L 05/11/18 14:00 75 19 97 05/11/18 13:58 76 18 102/54 L 97 Intake and Output (Last 8hrs): Intake & Output 05/11/18 05/11/18 05/11/18 06:59 14:59 22:59 Intake Total 780 1150 530 Output Total 650 681 0 Balance 130 469 530 Weight 105.778 kg Intake: Intake, IV Amount 540 420 180 Left Forearm 540 420 180 Oral 240 730 350 Output: Urine 650 680 0 Urine, Voided 650 680 0 Stool 1 0 Other: # Voids Urine, Voided 2 - Physical Exam Head: Positive for: Atraumatic, Normocephalic Pupils: Negative for: Pinpoint Extroacular Muscles: Positive for: EOMI Conjunctiva: Positive for: Normal. Negative for: Injected, Icteric Ears: Positive for: TM Bulging Mouth: Positive for: Moist Mucous Membranes. Negative for: Dry Nose (External): Positive for: Atraumatic. Negative for: Abrasion, Contusion, Laceration Nose (Internal): Positive for: No Active Bleeding. Negative for: Epistaxis Neck: Positive for: Trachea Midline. Negative for: JVD Respiratory/Chest: Positive for: Clear to Auscultation, Decreased Breath Sounds Cardiovascular: Positive for: Regular Rate and Rhythm, Normal S1, S2, Peripheal Pulses Present. Negative for: Murmurs, Tachycardic, Bradycardic Abdomen: Positive for: Normal Bowel Sounds. Negative for: Tenderness Upper Extremity: Positive for: Normal Inspection, NORMAL PULSES. Negative for: Cyanosis, Edema, Swelling, Erythema, Deformity Lower Extremity: Positive for: Normal Inspection, NORMAL PULSES, Capillary Refill < 2 s. Negative for: CALF TENDERNESS Neurological: Positive for: GCS=15, Speech Normal, Motor Func Grossly Intact Skin: Positive for: Warm, Dry Psychiatric: Positive for: Alert, Oriented x 3. Negative for: Anxious, Agitated - Medications Active Medications: Active Medications Generic Name Dose Route Start Last Admin Trade Name Freq PRN Reason Stop Dose Admin Amlodipine Besylate 5 mg 05/09/18 10:00 05/11/18 10:29 Norvasc PO 5 mg DAILY MARGOT Administration Aspirin 81 mg 05/10/18 10:00 05/11/18 10:29 Ecotrin PO 81 mg DAILY MARGOT Administration Clopidogrel Bisulfate 75 mg 05/09/18 10:00 05/11/18 10:29 Plavix PO 75 mg DAILY MARGOT Administration Dextrose 0 ml 05/09/18 04:34 Dextrose 50% Inj IV STAT PRN Hypoglycemia Protocol Protocol Dextrose 0 gm 05/09/18 04:34 Glutose 15 PO ONCE PRN Hypoglycemia Protocol Protocol Enoxaparin Sodium 40 mg 05/11/18 10:00 05/11/18 10:28 Lovenox SC 40 mg DAILY MARGOT Administration Famotidine 20 mg 05/09/18 10:00 05/11/18 10:29 Pepcid PO 20 mg BID MARGOT Administration Glucagon 0 mg 05/09/18 04:34 Glucagen Diagnostic Kit IM STAT PRN Hypoglycemia Protocol Protocol Hydralazine HCl 10 mg 05/09/18 21:15 05/11/18 16:02 Apresoline IVP Not Given Q6H MARGOT Dextrose 1,000 mls @ 0 mls/hr 05/09/18 04:34 Dextrose 5% In Water 1000 Ml IV .Q0M PRN Hypoglycemia Protocol Protocol Per Protocol Sodium Chloride 1,000 mls @ 60 mls/hr 05/10/18 21:30 05/11/18 14:00 Sodium Chloride 0.9% IV 60 mls/hr .[id number] MARGOT Administration Insulin Human Regular 0 unit 05/09/18 07:30 05/11/18 11:30 Novolin R SC Not Given ACHS [facility] Protocol Lisinopril 2.5 mg 05/09/18 10:00 05/11/18 10:32 Zestril PO 2.5 mg DAILY MARGOT Administration Metoprolol Succinate 50 mg 05/09/18 10:00 05/11/18 10:29 Toprol Xl PO 50 mg DAILY MARGOT Administration Nitroglycerin 0.4 mg 05/09/18 04:24 05/09/18 05:21 Nitrostat Sl Tab SL 0.4 mg PRN PRN Administration Pain, moderate (4-7) Rosuvastatin Calcium 20 mg 05/09/18 22:00 05/10/18 22:54 Crestor PO 20 mg HS MARGOT Administration - Patient Studies Lab Studies: Microbiology Studies 05/09/18 18:15 MRSA Culture (Admit) - Final Nose MRSA NOT DETECTED Lab Studies 05/11/18 05/11/18 05/11/18 Range/Units 16:32 11:07 07:31 WBC (4.8-10.8) K/uL RBC (4.40-5.90) Mil/uL Hgb (12.0-18.0) g/dL Hct (35.0-51.0) % MCV (80.0-94.0) fL MCH (27.0-31.0) pg MCHC (33.0-37.0) g/dL RDW (11.5-14.5) % Plt Count (130-400) K/uL MPV (7.2-11.7) fL Neut % (Auto) (50.0-75.0) % Lymph % (Auto) (20.0-40.0) % [place] % (Auto) (0.0-10.0) % Eos % (Auto) (0.0-4.0) % Baso % (Auto) (0.0-2.0) % Neut # (Auto) (1.8-7.0) K/uL Lymph # (Auto) (1.0-4.3) K/uL [place] # (Auto) (0.0-0.8) K/uL Eos # (Auto) (0.0-0.7) K/uL Baso # (Auto) (0.0-0.2) K/uL Neutrophils % (Manual) (50-75) % Lymphocytes % (Manual) (20-40) % Monocytes % (Manual) (0-10) % Platelet Estimate (NORMAL) Anisocytosis (manual) Ovalocytes Sodium (132-148) mmol/L Potassium (3.6-5.2) mmol/L Chloride (98-107) mmol/L Carbon Dioxide (22-30) mmol/L Anion Gap (10-20) BUN (9-20) mg/dL Creatinine (0.8-1.5) mg/dL Est GFR ( Amer) Est GFR (Non-Af Amer) POC Glucose (mg/dL) 108 125 H 110 (65-110) mg/dL Random Glucose (75-110) mg/dL Calcium (8.6-10.4) mg/dl Phosphorus (2.5-4.5) mg/dL Magnesium (1.6-2.3) mg/dL Total Bilirubin (0.2-1.3) mg/dL AST (17-59) U/L ALT (21-72) U/L Alkaline Phosphatase (38-126) U/L Total Protein (6.3-8.3) g/dL Albumin (3.5-5.0) g/dL Globulin (2.2-3.9) gm/dL Albumin/Globulin Ratio (1.0-2.1) 05/11/18 05/11/18 05/10/18 Range/Units 06:34 06:28 21:32 WBC 12.3 H (4.8-10.8) K/uL RBC 4.73 (4.40-5.90) Mil/uL Hgb 13.3 (12.0-18.0) g/dL Hct 39.4 (35.0-51.0) % MCV 83.3 (80.0-94.0) fL MCH 28.1 (27.0-31.0) pg MCHC 33.7 (33.0-37.0) g/dL RDW 14.4 (11.5-14.5) % Plt Count 218 (130-400) K/uL MPV 9.3 (7.2-11.7) fL Neut % (Auto) 80.4 H (50.0-75.0) % Lymph % (Auto) 8.9 L (20.0-40.0) % [place] % (Auto) 9.8 (0.0-10.0) % Eos % (Auto) 0.3 (0.0-4.0) % Baso % (Auto) 0.6 (0.0-2.0) % Neut # (Auto) 9.9 H (1.8-7.0) K/uL Lymph # (Auto) 1.1 (1.0-4.3) K/uL [place] # (Auto) 1.2 H (0.0-0.8) K/uL Eos # (Auto) 0.0 (0.0-0.7) K/uL Baso # (Auto) 0.1 (0.0-0.2) K/uL Neutrophils % (Manual) 84 H (50-75) % Lymphocytes % (Manual) 9 L (20-40) % Monocytes % (Manual) 7 (0-10) % Platelet Estimate Normal (NORMAL) Anisocytosis (manual) Slight Ovalocytes Slight Sodium 137 (132-148) mmol/L Potassium 4.2 (3.6-5.2) mmol/L Chloride 101 (98-107) mmol/L Carbon Dioxide 27 (22-30) mmol/L Anion Gap 13 (10-20) BUN 16 (9-20) mg/dL Creatinine 0.8 (0.8-1.5) mg/dL Est GFR ( Amer) > 60 Est GFR (Non-Af Amer) > 60 POC Glucose (mg/dL) 110 (65-110) mg/dL Random Glucose 104 (75-110) mg/dL Calcium 8.1 L (8.6-10.4) mg/dl Phosphorus 2.8 (2.5-4.5) mg/dL Magnesium 1.9 (1.6-2.3) mg/dL Total Bilirubin 1.5 H (0.2-1.3) mg/dL AST 87 H D (17-59) U/L ALT 48 (21-72) U/L Alkaline Phosphatase 53 (38-126) U/L Total Protein 6.9 (6.3-8.3) g/dL Albumin 3.7 (3.5-5.0) g/dL Globulin 3.1 (2.2-3.9) gm/dL Albumin/Globulin Ratio 1.2 (1.0-2.1) Laboratory Results - last 24 hr 05/10/18 05/11/18 05/11/18 21:32 06:28 06:34 WBC 12.3 H RBC 4.73 Hgb 13.3 Hct 39.4 MCV 83.3 MCH 28.1 MCHC 33.7 RDW 14.4 Plt Count 218 MPV 9.3 Neut % (Auto) 80.4 H Lymph % (Auto) 8.9 L [place] % (Auto) 9.8 Eos % (Auto) 0.3 Baso % (Auto) 0.6 Neut # (Auto) 9.9 H Lymph # (Auto) 1.1 [place] # (Auto) 1.2 H Eos # (Auto) 0.0 Baso # (Auto) 0.1 Neutrophils % (Manual) 84 H Lymphocytes % (Manual) 9 L Monocytes % (Manual) 7 Platelet Estimate Normal Anisocytosis (manual) Slight Ovalocytes Slight Sodium 137 Potassium 4.2 Chloride 101 Carbon Dioxide 27 Anion Gap 13 BUN 16 Creatinine 0.8 Est GFR ( Amer) > 60 Est GFR (Non-Af Amer) > 60 POC Glucose (mg/dL) 110 Random Glucose 104 Calcium 8.1 L Phosphorus 2.8 Magnesium 1.9 Total Bilirubin 1.5 H AST 87 H D ALT 48 Alkaline Phosphatase 53 Total Protein 6.9 Albumin 3.7 Globulin 3.1 Albumin/Globulin Ratio 1.2 05/11/18 05/11/18 05/11/18 07:31 11:07 16:32 WBC RBC Hgb Hct MCV MCH MCHC RDW Plt Count MPV Neut % (Auto) Lymph % (Auto) [place] % (Auto) Eos % (Auto) Baso % (Auto) Neut # (Auto) Lymph # (Auto) [place] # (Auto) Eos # (Auto) Baso # (Auto) Neutrophils % (Manual) Lymphocytes % (Manual) Monocytes % (Manual) Platelet Estimate Anisocytosis (manual) Ovalocytes Sodium Potassium Chloride Carbon Dioxide Anion Gap BUN Creatinine Est GFR ( Amer) Est GFR (Non-Af Amer) POC Glucose (mg/dL) 110 125 H 108 Random Glucose Calcium Phosphorus Magnesium Total Bilirubin AST ALT Alkaline Phosphatase Total Protein Albumin Globulin Albumin/Globulin Ratio Fingerstick Blood Sugar Results: 125 Review of Systems - Review of Systems All systems: reviewed and no additional remarkable complaints except (as per HPI ) Critical Care Progress Note - Nutrition Nutrition: Nutrition Category Date Time Status Heart Healthy Diet [DIET] Diets 05/10/18 Dinner Active Assessment/Plan - Assessment and Plan (Free Text) Assessment: This is a 68 yo M with PMH of CAD s/p 7 stents, NIDDM, HTN, and HLD who presented for complaints of chest pain, and is s/p cardiac cath yesterday with finding of Left Cx OM 1 99% stenosis and RCA small PLV 80% stenosis. Pending final determination for PCI vs Maximal Medical therapy as per Cardio. Plan: Neuro: Alert and oriented x3 No acute issue Maintain normothermia Cardiovascular: Hx of CAD with 7 stents EKG: Sinus bradycardia at 54, normal axis, T wave inversions in leads V2-V6 NSTEMI with trops increasing from <0.0120 to 7.6900 Continue Norvasc, ASA, Plavix, Lisinopril, Metoprolol succinate, Crestor, Hydralazine IV Continue Nitroglycerin 0.4mg SL PRN Heparin drip stopped post-cath Advanced to Heart-healthy diet as per Cardio Dr. Chandler following, appreciate all recs; pending determination for PCI vs maximal medical therapy for current condition ECHO obtained, pending official read S/p cardiac cath yesterday; Left Cx OM 1 99% stenosis and RCA small PLV 80% stenosis Pulmonary: Oxygenating well on O2 2L via NC. CXR: no acute disease GI: Pepcid 20mg PO BID for ppx Continue to monitor BMs Renal: BUN 16 Cr 0.8 I&Os; Net positive approx 1L today, break even for total admission thus far Endo: Hx of NIDDM Continue ISS and accuchecks Hypoglycemic protocol TSH 1.32, T4 0.99 ID Remains afebrile, WBCs decreased to 12.3 No indications for antibiotics at this time Heme: Hb 13.3/Hct 39.4 No signs of acute bleed, no tenderness or pressure at site of cardiac cath access Continue to monitor SCDs for DVT ppx Dispo: ICU, s/p cardiac cath, pending determination for maximal medical therapy vs PCI for tx FEN: HHD, NS at 60cc/hr Access: Peripheral IV Consults: Cardio Ppx: Pepcid for GI ppx, SCDs for DVT ppx Code Status: Unknown, so full by default Patient reviewed and discussed with attending, Dr. Neal Case discussed with Dr. Marrero
[2018-05-12] MEDS: Sodium Chloride 0.9% 1,000 ML IV SCH ×3 (06:45→23:30)
[2018-05-12] MEDS: (Novolin R) Insulin Human Regular 100 units/ml vial SC SCH ×4 (08:15→22:18)
[2018-05-12 08:30] LABS: BASO % 0.3 % (0.0-2.0); EOS % 0.4 % (0.0-4.0); HEMOGLOBIN 12.9 g/dL (12.0-18.0); LYMPH # 1.2 K/uL (1.0-4.3); LYMPH % 12.3 % (20.0-40.0); MEAN CORPUSCULAR HEMOGLOBIN 28.6 pg (27.0-31.0); MEAN PLATELET VOLUME 9.5 fL (7.2-11.7); MONO # 0.9 K/uL (0.0-0.8); MONO % 9.9 % (0.0-10.0); NEUT # 7.2 K/uL (1.8-7.0); NEUT % 77.1 % (50.0-75.0); NRBC % 0.1 % (0.0-2.0); RBC 4.52 Mil/uL (4.40-5.90); RED CELL DISTRIBUTION WIDTH 14.2 % (11.5-14.5); WHITE BLOOD COUNT 9.3 K/uL (4.8-10.8)
[2018-05-12 08:56] LABS: ALB/GLOB RATIO 1.3 (1.0-2.1); ALBUMIN 3.6 g/dL (3.5-5.0); ALT/SGPT 38 U/L (21-72); AST/SGOT 44 U/L (17-59); BLOOD UREA NITROGEN 17 mg/dL (9-20); CALCIUM 8.4 mg/dl (8.6-10.4); GFR NON-AFRICAN AMERICAN > 60
[2018-05-12] MEDS: Enoxaparin 40 mg Syringe SC SCH (10:23)
[2018-05-12] MEDS: Metoprolol Succinate 50 mg XL Tab PO SCH (10:23)
--- NOTE | 2018-05-12 10:35 | CP.PCM.PN ---
Subjective - Date & Time of Evaluation Date of Evaluation: 05/11/18 Time of Evaluation: 11:05 - Subjective Subjective: Patient seen and evaluated Feels better No chest pain or dyspnea Objective - Vital Signs/Intake and Output Vital Signs (last 24 hours): Temp Pulse Resp BP Pulse Ox 98.7 F 68 18 108/67 97 05/12/18 07:00 05/12/18 07:00 05/12/18 07:00 05/12/18 07:00 05/12/18 07:00 Intake and Output: 05/12/18 05/12/18 06:59 18:59 Intake Total 60 Output Total 500 Balance -440 - Medications Medications: Current Medications Amlodipine Besylate (Norvasc) 5 mg PO DAILY [facility] Last Admin: 05/12/18 10:23 Dose: 5 mg Aspirin (Ecotrin) 81 mg PO DAILY [facility] Last Admin: 05/12/18 10:23 Dose: 81 mg Clopidogrel Bisulfate (Plavix) 75 mg PO DAILY [facility] Last Admin: 05/12/18 10:23 Dose: 75 mg Dextrose (Dextrose 50% Inj) 0 ml IV STAT PRN; Protocol PRN Reason: Hypoglycemia Protocol Dextrose (Glutose 15) 0 gm PO ONCE PRN; Protocol PRN Reason: Hypoglycemia Protocol Enoxaparin Sodium (Lovenox) 40 mg SC DAILY [facility] Last Admin: 05/12/18 10:23 Dose: 40 mg Famotidine (Pepcid) 20 mg PO BID [facility] Last Admin: 05/12/18 10:23 Dose: 20 mg Glucagon (Glucagen Diagnostic Kit) 0 mg IM STAT PRN; Protocol PRN Reason: Hypoglycemia Protocol Hydralazine HCl (Apresoline) 10 mg IVP Q6H [facility] Last Admin: 05/12/18 09:15 Dose: Not Given Dextrose (Dextrose 5% In Water 1000 Ml) 1,000 mls @ 0 mls/hr IV .Q0M PRN; Protocol; Per Protocol PRN Reason: Hypoglycemia Protocol Sodium Chloride (Sodium Chloride 0.9%) 1,000 mls @ 60 mls/hr IV .[id number] [facility] Last Admin: 05/12/18 06:45 Dose: Not Given Insulin Human Regular (Novolin R) 0 unit SC ACHS [facility] PRN Reason: Protocol Last Admin: 05/11/18 22:50 Dose: Not Given Lisinopril (Zestril) 2.5 mg PO DAILY [facility] Last Admin: 05/12/18 10:22 Dose: 2.5 mg Metoprolol Succinate (Toprol Xl) 50 mg PO DAILY [facility] Last Admin: 05/12/18 10:23 Dose: 50 mg Nitroglycerin (Nitrostat Sl Tab) 0.4 mg SL PRN PRN PRN Reason: Pain, moderate (4-7) Last Admin: 05/09/18 05:21 Dose: 0.4 mg Rosuvastatin Calcium (Crestor) 20 mg PO [facility] Last Admin: 05/11/18 22:09 Dose: 20 mg - Labs Labs: 05/12/18 08:13 05/12/18 08:13 PT 11.3 SECONDS (9.7-12.2) 05/09/18 17:55 INR 1.0 05/09/18 17:55 APTT 57 SECONDS (21-34) H D 05/10/18 06:02 - Head Exam Head Exam: ATRAUMATIC, NORMAL INSPECTION - Eye Exam Eye Exam: EOMI, Normal appearance, PERRL Pupil Exam: NORMAL ACCOMODATION, PERRL - ENT Exam ENT Exam: Mucous Membranes Moist, Normal Exam - Neck Exam Neck Exam: Full ROM - Respiratory Exam Respiratory Exam: Clear to Ausculation Bilateral, NORMAL BREATHING PATTERN - Cardiovascular Exam Cardiovascular Exam: REGULAR RHYTHM, +S1, +S2 - GI/Abdominal Exam GI & Abdominal Exam: Soft, Normal Bowel Sounds - Extremities Exam Extremities Exam: Full ROM - Neurological Exam Neurological Exam: Alert, Awake, Oriented x3 - Psychiatric Exam Psychiatric exam: Normal Mood - Skin Skin Exam: Dry, Warm Assessment and Plan - Assessment and Plan (Free Text) Assessment: 1. CAD s/p Non STEMI 2. HTN 3. DM 2 4. Obesity 5. Tobacco use Non compliance with medications For PCI of OM1 at [place] on Sunday
--- NOTE | 2018-05-12 15:33 | CARD ---
APPROVED REPORT Date of service: 05/10/2018 EXAM: Two-dimensional and M-mode echocardiogram with Doppler and color Doppler. Other Information Quality : GoodRhythm : INDICATION Cardiac Disease: CAD Chest Pain Non STEMI RISK FACTORS Hypertension Hyperlipidemia Diabetes 2D DIMENSIONS IVSd1.6 (0.7-1.1cm)LVDd4.4 (3.9-5.9cm) LVOT Diameter1.9 (1.8-2.4cm)PWd1.6 (0.7-1.1cm) LVDs3.1 (2.5-4.0cm)FS (%) 31.0 % LVEF (%)58.0 (>50%) M-Mode DIMENSIONS Left Atrium (MM)4.33 (2.5-4.0cm)Aortic Root3.71 (2.2-3.7cm) Aortic Cusp Exc.2.06 (1.5-2.0cm) Mitral Valve MV E Rzoyvivb17.4cm/sMV A Ukxlkehq42.1cm/sE/A ratio1.0 TDI E/Lateral E'0.0E/Medial E'0.0 Tricuspid Valve TR Peak [id number]/sTR Peak [id number] <Conclusion> tds. poor window. normal size ,lv & ra rv. la is mildly dilated. normal lv wall motion,systolic & diastolic function with lvef of 65-70%. mild concnetric lvh. sclerotic trileaflet aortic valve. normal mitral,tv & pv. trace mr & tr with normal pulmonary systolic pressures of 20 mm of hg. normal size aortic root,mildly sclerotic. no pericardial effusion.
--- NOTE | 2018-05-12 20:11 | CP.PCM.PN ---
Subjective - Date & Time of Evaluation Date of Evaluation: 05/12/18 Time of Evaluation: 13:00 - Subjective Subjective: Seen and examined this afternoon.patient was sitting on the chair with no complain,no chest pain. He is going for PCI on Sunday Discussed about medication compliance Objective - Vital Signs/Intake and Output Vital Signs (last 24 hours): Temp Pulse Resp BP Pulse Ox 98.5 F 70 18 99/65 L 96 05/12/18 16:00 05/12/18 17:10 05/12/18 16:00 05/12/18 16:00 05/12/18 16:00 Intake and Output: 05/12/18 05/13/18 18:59 06:59 Intake Total 480 Balance 480 - Medications Medications: Current Medications Amlodipine Besylate (Norvasc) 5 mg PO DAILY [facility] Last Admin: 05/12/18 10:23 Dose: 5 mg Aspirin (Ecotrin) 81 mg PO DAILY [facility] Last Admin: 05/12/18 10:23 Dose: 81 mg Clopidogrel Bisulfate (Plavix) 75 mg PO DAILY [facility] Last Admin: 05/12/18 10:23 Dose: 75 mg Dextrose (Dextrose 50% Inj) 0 ml IV STAT PRN; Protocol PRN Reason: Hypoglycemia Protocol Dextrose (Glutose 15) 0 gm PO ONCE PRN; Protocol PRN Reason: Hypoglycemia Protocol Enoxaparin Sodium (Lovenox) 40 mg SC DAILY [facility] Last Admin: 05/12/18 10:23 Dose: 40 mg Famotidine (Pepcid) 20 mg PO BID [facility] Last Admin: 05/12/18 17:30 Dose: 20 mg Glucagon (Glucagen Diagnostic Kit) 0 mg IM STAT PRN; Protocol PRN Reason: Hypoglycemia Protocol Hydralazine HCl (Apresoline) 10 mg IVP Q6H [facility] Last Admin: 05/12/18 15:19 Dose: Not Given Dextrose (Dextrose 5% In Water 1000 Ml) 1,000 mls @ 0 mls/hr IV .Q0M PRN; Protocol; Per Protocol PRN Reason: Hypoglycemia Protocol Sodium Chloride (Sodium Chloride 0.9%) 1,000 mls @ 60 mls/hr IV .[id number] [facility] Last Admin: 05/12/18 10:05 Dose: 60 mls/hr Insulin Human Regular (Novolin R) 0 unit SC ACHS [facility] PRN Reason: Protocol Last Admin: 05/12/18 17:30 Dose: Not Given Lisinopril (Zestril) 2.5 mg PO DAILY [facility] Last Admin: 05/12/18 10:22 Dose: 2.5 mg Metoprolol Succinate (Toprol Xl) 50 mg PO DAILY [facility] Last Admin: 05/12/18 10:23 Dose: 50 mg Nitroglycerin (Nitrostat Sl Tab) 0.4 mg SL PRN PRN PRN Reason: Pain, moderate (4-7) Last Admin: 05/09/18 05:21 Dose: 0.4 mg Rosuvastatin Calcium (Crestor) 20 mg PO HS [facility] Last Admin: 05/11/18 22:09 Dose: 20 mg - Labs Labs: 05/12/18 08:13 05/12/18 08:13 PT 11.3 SECONDS (9.7-12.2) 05/09/18 17:55 INR 1.0 05/09/18 17:55 APTT 57 SECONDS (21-34) H D 05/10/18 06:02 - Constitutional Appears: Non-toxic, No Acute Distress - Head Exam Head Exam: NORMAL INSPECTION - Eye Exam Eye Exam: Normal appearance - ENT Exam ENT Exam: Mucous Membranes Moist - Neck Exam Neck Exam: Full ROM - Respiratory Exam Respiratory Exam: Clear to Ausculation Bilateral, NORMAL BREATHING PATTERN - Cardiovascular Exam Cardiovascular Exam: REGULAR RHYTHM - GI/Abdominal Exam GI & Abdominal Exam: Soft, Normal Bowel Sounds - Extremities Exam Extremities Exam: Full ROM - Back Exam Back Exam: NORMAL INSPECTION - Neurological Exam Neurological Exam: Awake, Oriented x3 - Psychiatric Exam Psychiatric exam: Normal Mood - Skin Skin Exam: Intact, Normal Color Assessment and Plan - Assessment and Plan (Free Text) Assessment: This is 68 years obese male with history of CAD s/p 7 stents last stent by Dr Chandler in jun 2017, NIDDM, HTN, HLD who presented for complaints of chest pain. patient is noncompliance with diet and medication. He wasn't taking his meds last 3 months.His troponin is high.NSTEMI S/P Cardiac cath yesterday. Left Main is Patent,LAD with Mid stent 20% ISR, Distal stent patent,. L Cx Stent patent, OM 1 99% stenosis His RCA Dominant and patent, Small PLV 80% stenosis LV: EF 55% Going for PCI on Sunday Plan: 1.NSTMI/Chest pain s/p cardiac cath Hx of CAD with 7 stents Troponins 7.6 continue current meds,Norvasc 5mg PO daily,Lisinopril,metoprolol,nitroglycerin, Crestor,hydrazine ASA 81mg PO daily ,Plavix 75mg PO daily and heparin drip cardiac cath - Left Main is Patent,LAD with Mid stent 20% ISR, Distal stent patent,. L Cx Stent patent, OM 1 99% stenosis His RCA Dominant and patent, Small PLV 80% stenosis, LV: EF 55% As per DR Chandler Its Small Vessel disease PCI of OM1 at [place] on Sunday 2.DM Patient not currently taking any at home medications Monitor sugar 3.HLD Rosuvastatin 20mg PO HS 4.Noncompliance with medication Discussed about taking medication to prevent further heart problem His spouse was at bedside 4.Hx of Tobacco Abuse Smoking cessation encouraged 5.Prophylactic Measures DVT-Heparin GI- Pepcid 20mg PO BID
[2018-05-12 22:17] VITALS: RESP 20
--- NOTE | 2018-05-12 23:45 | CARDCATH ---
Copied To: Kwaku Chandler MD Attending MD: Kwaku Chandler MD PROCEDURE DATE: 05/10/2018 PROCEDURES: 1. Left heart catheterization. 2. Coronary angiogram. REFERRING PHYSICIAN: Charlie Hannah MD PERFORMING PHYSICIAN: Kwaku Chandler MD CLINICAL INDICATIONS: 1. Unstable angina. 2. Non-ST elevation myocardial infarction. 3. History of coronary artery disease and stents. 4. Diabetes. 5. Hypertension. 6. Hyperlipidemia. 7. Obesity. 8. Medication noncompliance. DESCRIPTION OF PROCEDURE: After informed consent, the patient was prepped and draped in the usual sterile fashion. Lidocaine 2% was given in the right groin for local anesthesia. Using micropuncture technique, a 6-Dominican sheath was introduced into the right common femoral artery. A JL4 6-Dominican diagnostic catheter crossed into the left ventricle across the aortic valve. LV end-diastolic pressure was measured. Contrast injected and LV angiogram was done. Then, the catheter was pulled back across the aortic valve. The gradient across the aortic valve was measured. Then, the same catheter was engaged into right coronary artery. Contrast injected and right coronary angiogram was done. Then, the catheter was exchanged to a JL4 6-Dominican diagnostic catheter. The catheter was engaged into the left main coronary artery. Contrast was injected and left coronary angiogram was done. The patient tolerated the procedure well. Postprocedure, radiological supervision and interpretation of the coronary imaging was done. FINDINGS: 1. Left main coronary artery is patent. 2. Mid LAD has in-stent 20% to 30% stenosis. Distal LAD stent is patent. Diagonal branches are patent. 3. Prior stent in the left circumflex is patent. However, obtuse marginal-1 artery has 99% stenosis. Distal left circumflex has diffuse disease. 4. Right coronary artery is dominant. Right coronary artery, PDA and PLV branches are patent. 5. LV ejection fraction is approximately 60%. No wall motion abnormality noted. No gradient across the aortic valve. IMPRESSION: Coronary artery disease as described above. RECOMMENDATIONS: Recommend obtuse marginal artery intervention. The patient will be transferred to intensive care unit for further management. Kwaku Chandler MD
[2018-05-13] MEDS: Sodium Chloride 0.9% 1,000 ML IV SCH ×3 (04:01→21:11)
[2018-05-13] MEDS: (Novolin R) Insulin Human Regular 100 units/ml vial SC SCH ×4 (06:33→21:20)
--- NOTE | 2018-05-13 07:05 | CP.PCM.PN ---
Subjective - Date & Time of Evaluation Date of Evaluation: 05/12/18 Time of Evaluation: 18:40 Objective - Vital Signs/Intake and Output Vital Signs (last 24 hours): Temp Pulse Resp BP Pulse Ox 98.8 F 74 20 117/73 96 05/12/18 23:25 05/13/18 00:11 05/12/18 23:25 05/12/18 23:25 05/12/18 23:25 Intake and Output: 05/13/18 05/13/18 06:59 18:59 Intake Total 1680 Output Total 1700 Balance -20 - Medications Medications: Current Medications Amlodipine Besylate (Norvasc) 5 mg PO DAILY [facility] Last Admin: 05/12/18 10:23 Dose: 5 mg Aspirin (Ecotrin) 81 mg PO DAILY [facility] Last Admin: 05/12/18 10:23 Dose: 81 mg Clopidogrel Bisulfate (Plavix) 75 mg PO DAILY [facility] Last Admin: 05/12/18 10:23 Dose: 75 mg Dextrose (Dextrose 50% Inj) 0 ml IV STAT PRN; Protocol PRN Reason: Hypoglycemia Protocol Dextrose (Glutose 15) 0 gm PO ONCE PRN; Protocol PRN Reason: Hypoglycemia Protocol Enoxaparin Sodium (Lovenox) 40 mg SC DAILY [facility] Last Admin: 05/12/18 10:23 Dose: 40 mg Famotidine (Pepcid) 20 mg PO BID [facility] Last Admin: 05/12/18 17:30 Dose: 20 mg Glucagon (Glucagen Diagnostic Kit) 0 mg IM STAT PRN; Protocol PRN Reason: Hypoglycemia Protocol Hydralazine HCl (Apresoline) 10 mg IVP Q6H [facility] Last Admin: 05/13/18 02:47 Dose: Not Given Dextrose (Dextrose 5% In Water 1000 Ml) 1,000 mls @ 0 mls/hr IV .Q0M PRN; Protocol; Per Protocol PRN Reason: Hypoglycemia Protocol Sodium Chloride (Sodium Chloride 0.9%) 1,000 mls @ 60 mls/hr IV .[id number] [facility] Last Admin: 05/13/18 04:01 Dose: 60 mls/hr Insulin Human Regular (Novolin R) 0 unit SC ACHS [facility] PRN Reason: Protocol Last Admin: 05/13/18 06:33 Dose: Not Given Lisinopril (Zestril) 2.5 mg PO DAILY [facility] Last Admin: 05/12/18 10:22 Dose: 2.5 mg Metoprolol Succinate (Toprol Xl) 50 mg PO DAILY [facility] Last Admin: 05/12/18 10:23 Dose: 50 mg Nitroglycerin (Nitrostat Sl Tab) 0.4 mg SL PRN PRN PRN Reason: Pain, moderate (4-7) Last Admin: 05/09/18 05:21 Dose: 0.4 mg Rosuvastatin Calcium (Crestor) 20 mg PO [facility] Last Admin: 05/12/18 22:18 Dose: 20 mg - Labs Labs: 05/12/18 08:13 05/12/18 08:13 PT 11.3 SECONDS (9.7-12.2) 05/09/18 17:55 INR 1.0 05/09/18 17:55 APTT 57 SECONDS (21-34) H D 05/10/18 06:02
[2018-05-13] MEDS: Enoxaparin 40 mg Syringe SC SCH (09:55)
[2018-05-13] MEDS: Metoprolol Succinate 50 mg XL Tab PO SCH (09:55)
--- NOTE | 2018-05-13 12:59 | CP.PCM.PN ---
Subjective - Date & Time of Evaluation Date of Evaluation: 05/13/18 Time of Evaluation: 12:00 - Subjective Subjective: Patient was seen and examined by me. He was not in any acute distress He was just recently transfered out of ICU Pending PCI tommorow in [facility] per cardiology. The patient is aware of this. He reported no chest pain at rest. He denied palpitations and denied shortness of breath. He says that he has not been taking his medications like he should be and he understands that this is dangerous. He has had multiple stents before in the past, history of smoking as well. Objective - Vital Signs/Intake and Output Vital Signs (last 24 hours): Temp Pulse Resp BP Pulse Ox 98.5 F 72 20 110/74 95 05/13/18 07:00 05/13/18 09:55 05/13/18 09:55 05/13/18 09:55 05/13/18 07:00 Intake and Output: 05/13/18 05/13/18 06:59 18:59 Intake Total 1680 Output Total 1700 Balance -20 - Medications Medications: Current Medications Amlodipine Besylate (Norvasc) 5 mg PO DAILY [facility] Last Admin: 05/13/18 09:55 Dose: 5 mg Aspirin (Ecotrin) 81 mg PO DAILY [facility] Last Admin: 05/13/18 09:55 Dose: 81 mg Clopidogrel Bisulfate (Plavix) 75 mg PO DAILY [facility] Last Admin: 05/13/18 09:55 Dose: 75 mg Dextrose (Dextrose 50% Inj) 0 ml IV STAT PRN; Protocol PRN Reason: Hypoglycemia Protocol Dextrose (Glutose 15) 0 gm PO ONCE PRN; Protocol PRN Reason: Hypoglycemia Protocol Enoxaparin Sodium (Lovenox) 40 mg SC DAILY [facility] Last Admin: 05/13/18 09:55 Dose: 40 mg Famotidine (Pepcid) 20 mg PO BID [facility] Last Admin: 05/13/18 09:55 Dose: 20 mg Glucagon (Glucagen Diagnostic Kit) 0 mg IM STAT PRN; Protocol PRN Reason: Hypoglycemia Protocol Hydralazine HCl (Apresoline) 10 mg IVP Q6H [facility] Last Admin: 05/13/18 09:54 Dose: Not Given Dextrose (Dextrose 5% In Water 1000 Ml) 1,000 mls @ 0 mls/hr IV .Q0M PRN; Protocol; Per Protocol PRN Reason: Hypoglycemia Protocol Sodium Chloride (Sodium Chloride 0.9%) 1,000 mls @ 60 mls/hr IV .[id number] [facility] Last Admin: 05/13/18 04:01 Dose: 60 mls/hr Insulin Human Regular (Novolin R) 0 unit SC ACHS [facility] PRN Reason: Protocol Last Admin: 05/13/18 12:09 Dose: Not Given Lisinopril (Zestril) 2.5 mg PO DAILY [facility] Last Admin: 05/13/18 09:55 Dose: 2.5 mg Metoprolol Succinate (Toprol Xl) 50 mg PO DAILY [facility] Last Admin: 05/13/18 09:55 Dose: 50 mg Nitroglycerin (Nitrostat Sl Tab) 0.4 mg SL PRN PRN PRN Reason: Pain, moderate (4-7) Last Admin: 05/09/18 05:21 Dose: 0.4 mg Rosuvastatin Calcium (Crestor) 20 mg PO HS [facility] Last Admin: 05/12/18 22:18 Dose: 20 mg - Labs Labs: 05/12/18 08:13 05/12/18 08:13 PT 11.3 SECONDS (9.7-12.2) 05/09/18 17:55 INR 1.0 05/09/18 17:55 APTT 57 SECONDS (21-34) H D 05/10/18 06:02 - Constitutional Appears: Non-toxic, No Acute Distress - Head Exam Head Exam: NORMAL INSPECTION, NORMOCEPHALIC - Eye Exam Eye Exam: EOMI, Normal appearance - ENT Exam ENT Exam: Mucous Membranes Moist - Respiratory Exam Respiratory Exam: Clear to Ausculation Bilateral, NORMAL BREATHING PATTERN - Cardiovascular Exam Cardiovascular Exam: REGULAR RHYTHM - GI/Abdominal Exam GI & Abdominal Exam: Soft, Normal Bowel Sounds. absent: Firm, Guarding, Rigid, Tenderness - Neurological Exam Neurological Exam: Alert, Awake, Oriented x3 Neuro motor strength exam: Left Upper Extremity: 5, Right Upper Extremity: 5 - Psychiatric Exam Psychiatric exam: Normal Affect, Normal Mood - Skin Skin Exam: Normal Color, Warm Assessment and Plan - Assessment and Plan (Free Text) Assessment: This is 68 years obese male with history of CAD s/p 7 stents last stent by Dr Chandler in jun 2017, NIDDM, HTN, HLD who presented for complaints of chest pain. patient is noncompliance with diet and medication. He wasn't taking his meds last 3 months.His troponin is high.NSTEMI S/P Cardiac cath yesterday. Left Main is Patent,LAD with Mid stent 20% ISR, Distal stent patent,. L Cx Stent patent, OM 1 99% stenosis His RCA Dominant and patent, Small PLV 80% stenosis LV: EF 55% Going for PCI on Sunday 1.NSTMI/Chest pain s/p cardiac cath 05/13: Currently stable, [place] [facility] [place]. He's already had history of 7 stents. He still smokes he says and does not take his medications like he should. He understands this is putting him at high risk Hx of CAD with 7 stents Troponins 7.6 continue current meds,Norvasc 5mg PO daily,Lisinopril,metoprolol,nitroglycerin, Crestor,hydrazine ASA 81mg PO daily ,Plavix 75mg PO daily and heparin drip cardiac cath - Left Main is Patent,LAD with Mid stent 20% ISR, Distal stent patent,. L Cx Stent patent, OM 1 99% stenosis His RCA Dominant and patent, Small PLV 80% stenosis, LV: EF 55% As per DR Chandler Its Small Vessel disease PCI of OM1 at [place] on Sunday 2.DM Patient not currently taking any at home medications Monitor sugar 3.HLD Rosuvastatin 20mg PO HS 4.Noncompliance with medication 05/13: Again had another discussion, he understands this is dangerous. Discussed about taking medication to prevent further heart problem 4.Hx of Tobacco Abuse Smoking cessation encouraged 5.Prophylactic Measures DVT-Heparin GI- Pepcid 20mg PO BID
--- NOTE | 2018-05-13 23:22 | CP.PCM.PN ---
Subjective - Date & Time of Evaluation Date of Evaluation: 05/13/18 Time of Evaluation: 16:40 - Subjective Subjective: Patient seen and evaluated Comfortable For PCI at [place] tomorrow Objective - Vital Signs/Intake and Output Vital Signs (last 24 hours): Temp Pulse Resp BP Pulse Ox 99 F 71 20 116/69 96 05/13/18 15:00 05/13/18 21:03 05/13/18 15:00 05/13/18 21:03 05/13/18 15:00 Intake and Output: 05/13/18 05/14/18 18:59 06:59 Intake Total 960 Balance 960 - Medications Medications: Current Medications Amlodipine Besylate (Norvasc) 5 mg PO DAILY [facility] Last Admin: 05/13/18 09:55 Dose: 5 mg Aspirin (Ecotrin) 81 mg PO DAILY [facility] Last Admin: 05/13/18 09:55 Dose: 81 mg Clopidogrel Bisulfate (Plavix) 75 mg PO DAILY [facility] Last Admin: 05/13/18 09:55 Dose: 75 mg Dextrose (Dextrose 50% Inj) 0 ml IV STAT PRN; Protocol PRN Reason: Hypoglycemia Protocol Dextrose (Glutose 15) 0 gm PO ONCE PRN; Protocol PRN Reason: Hypoglycemia Protocol Enoxaparin Sodium (Lovenox) 40 mg SC DAILY [facility] Last Admin: 05/13/18 09:55 Dose: 40 mg Famotidine (Pepcid) 20 mg PO BID [facility] Last Admin: 05/13/18 17:48 Dose: 20 mg Glucagon (Glucagen Diagnostic Kit) 0 mg IM STAT PRN; Protocol PRN Reason: Hypoglycemia Protocol Hydralazine HCl (Apresoline) 10 mg IVP Q6H [facility] Last Admin: 05/13/18 21:03 Dose: Not Given Dextrose (Dextrose 5% In Water 1000 Ml) 1,000 mls @ 0 mls/hr IV .Q0M PRN; Protocol; Per Protocol PRN Reason: Hypoglycemia Protocol Insulin Human Regular (Novolin R) 0 unit SC ACHS [facility] PRN Reason: Protocol Last Admin: 05/13/18 21:20 Dose: Not Given Lisinopril (Zestril) 2.5 mg PO DAILY [facility] Last Admin: 05/13/18 09:55 Dose: 2.5 mg Metoprolol Succinate (Toprol Xl) 50 mg PO DAILY [facility] Last Admin: 05/13/18 09:55 Dose: 50 mg Nitroglycerin (Nitrostat Sl Tab) 0.4 mg SL PRN PRN PRN Reason: Pain, moderate (4-7) Last Admin: 05/09/18 05:21 Dose: 0.4 mg Rosuvastatin Calcium (Crestor) 20 mg PO HS [facility] Last Admin: 05/13/18 21:12 Dose: 20 mg - Labs Labs: 05/12/18 08:13 05/12/18 08:13 PT 11.3 SECONDS (9.7-12.2) 05/09/18 17:55 INR 1.0 05/09/18 17:55 APTT 57 SECONDS (21-34) H D 05/10/18 06:02
[2018-05-14 07:17] LABS: HEMOGLOBIN 12.4 g/dL (12.0-18.0); MEAN CELL VOLUME 83.7 fL (80.0-94.0); MEAN CORPUSCULAR HEMOGLOBIN 28.2 pg (27.0-31.0); MEAN CORPUSCULAR HGB CONC 33.7 g/dL (33.0-37.0); MEAN PLATELET VOLUME 9.4 fL (7.2-11.7); RBC 4.39 Mil/uL (4.40-5.90)
[2018-05-14 07:42] LABS: INR 1.1; PROTHROMBIN TIME 12.3 SECONDS (9.7-12.2)
[2018-05-14] MEDS: (Novolin R) Insulin Human Regular 100 units/ml vial SC SCH ×4 (07:52→23:00)
[2018-05-14 08:02] LABS: ALB/GLOB RATIO 1.4 (1.0-2.1); ALBUMIN 3.8 g/dL (3.5-5.0); ALT/SGPT 48 U/L (21-72); AST/SGOT 26 U/L (17-59); BLOOD UREA NITROGEN 15 mg/dL (9-20); CALCIUM 8.8 mg/dl (8.6-10.4); GFR NON-AFRICAN AMERICAN > 60
[2018-05-14] MEDS: Metoprolol Succinate 50 mg XL Tab PO SCH (09:27)
[2018-05-14] MEDS: Enoxaparin 40 mg Syringe SC SCH (09:28)
--- NOTE | 2018-05-14 14:46 | CP.PCM.PN ---
<Shawn Renee - Last Filed: 05/14/18 14:43> Subjective - Date & Time of Evaluation Date of Evaluation: 05/14/18 Time of Evaluation: 14:44 - Subjective Subjective: PGY-[address] Negerte Patient seen and examined at bedside. Pt in no acute distress, no acute events overnight. Pt slept well, tolerating PO meals. Pt was educated on the importance of taking his medications to prevent him from ending up back in the hospital. Pt recently transferred out of the ICU. Pt was transferred earlier this afternoon to [facility] for therapeutic PCI with stenting of the obtuse margical branch of circumflex and possible mid-LAD. Pt also educated about the importance of quitting smoking. Pt denies chest pain, shortness of breath, palpitations, headache, dizziness. Objective - Vital Signs/Intake and Output Vital Signs (last 24 hours): Temp Pulse Resp BP Pulse Ox 97.9 F 75 20 137/83 96 05/14/18 07:00 05/14/18 11:50 05/14/18 07:00 05/14/18 09:30 05/14/18 07:00 Intake and Output: 05/14/18 05/14/18 06:59 18:59 Intake Total 1140 480 Output Total 300 Balance 840 480 - Medications Medications: Current Medications Amlodipine Besylate (Norvasc) 5 mg PO DAILY [facility] Last Admin: 05/14/18 09:27 Dose: 5 mg Aspirin (Ecotrin) 81 mg PO DAILY [facility] Last Admin: 05/14/18 09:27 Dose: 81 mg Clopidogrel Bisulfate (Plavix) 75 mg PO DAILY [facility] Last Admin: 05/14/18 09:27 Dose: 75 mg Dextrose (Dextrose 50% Inj) 0 ml IV STAT PRN; Protocol PRN Reason: Hypoglycemia Protocol Dextrose (Glutose 15) 0 gm PO ONCE PRN; Protocol PRN Reason: Hypoglycemia Protocol Enoxaparin Sodium (Lovenox) 40 mg SC DAILY [facility] Last Admin: 05/14/18 09:28 Dose: Not Given Famotidine (Pepcid) 20 mg PO BID [facility] Last Admin: 05/14/18 09:27 Dose: 20 mg Glucagon (Glucagen Diagnostic Kit) 0 mg IM STAT PRN; Protocol PRN Reason: Hypoglycemia Protocol Hydralazine HCl (Apresoline) 10 mg IVP Q6H [facility] Last Admin: 05/14/18 09:29 Dose: Not Given Dextrose (Dextrose 5% In Water 1000 Ml) 1,000 mls @ 0 mls/hr IV .Q0M PRN; Protocol; Per Protocol PRN Reason: Hypoglycemia Protocol Insulin Human Regular (Novolin R) 0 unit SC ACHS [facility] PRN Reason: Protocol Last Admin: 05/14/18 11:45 Dose: Not Given Lisinopril (Zestril) 2.5 mg PO DAILY [facility] Last Admin: 05/14/18 09:27 Dose: 2.5 mg Metoprolol Succinate (Toprol Xl) 50 mg PO DAILY [facility] Last Admin: 05/14/18 09:27 Dose: 50 mg Nitroglycerin (Nitrostat Sl Tab) 0.4 mg SL PRN PRN PRN Reason: Pain, moderate (4-7) Last Admin: 05/09/18 05:21 Dose: 0.4 mg Rosuvastatin Calcium (Crestor) 20 mg PO HS [facility] Last Admin: 05/13/18 21:12 Dose: 20 mg - Labs Labs: 05/14/18 07:09 05/14/18 07:09 PT 12.3 SECONDS (9.7-12.2) H 05/14/18 07:09 INR 1.1 05/14/18 07:09 APTT 57 SECONDS (21-34) H D 05/10/18 06:02 - Head Exam Head Exam: ATRAUMATIC, NORMAL INSPECTION, NORMOCEPHALIC - Eye Exam Eye Exam: EOMI, Normal appearance Pupil Exam: NORMAL ACCOMODATION, PERRL - ENT Exam ENT Exam: Mucous Membranes Moist - Respiratory Exam Respiratory Exam: Clear to Ausculation Bilateral, NORMAL BREATHING PATTERN - Cardiovascular Exam Cardiovascular Exam: REGULAR RHYTHM, +S1, +S2 - GI/Abdominal Exam GI & Abdominal Exam: Soft, Normal Bowel Sounds. absent: Tenderness - Extremities Exam Extremities Exam: Full ROM, Normal Capillary Refill - Neurological Exam Neurological Exam: Alert, Awake, CN II-XII Intact, Normal Gait, Oriented x3 - Psychiatric Exam Psychiatric exam: Normal Affect, Normal Mood - Skin Skin Exam: Dry, Intact, Normal Color, Warm Assessment and Plan - Assessment and Plan (Free Text) Assessment: This is 68 years obese male with history of CAD s/p 7 stents last stent by Dr Chandler in jun 2017, NIDDM, HTN, HLD who presented for complaints of chest pain. patient is noncompliance with diet and medication. He has not been taking his meds for the last 3 months. 1.NSTMI/Chest pain s/p cardiac cath * 05/13: Currently stable, will be going [place] [facility] [place]. He's already had history of 7 stents. He still smokes he says and does not take his medications like he should. He understands this is putting him at high risk Hx of CAD with 7 stents * Troponins 7.6 * Continue current meds,Norvasc 5mg PO daily,Lisinopril,metoprolol,nitroglycerin ,Crestor,hydrazine * ASA 81mg PO daily ,Plavix 75mg PO daily and heparin drip * cardiac cath - Left Main is Patent,LAD with Mid stent 20% ISR, Distal stent patent,. L Cx Stent patent, OM 1 99% stenosis * His RCA Dominant and patent, Small PLV 80% stenosis, LV: EF 55% * As per DR hCandler - he has primarily small vessel disease * PCI of OM1 at [place] 05/13 * S/p Cardiac cath yesterday, 05/13 (diagnostic evaluation) * Left Main is Patent,LAD with Mid stent 20% ISR, Distal stent patent,. L Cx Stent patent, OM 1 99% stenosis. RCA Dominant and patent. Small PLV 80% stenosis * LV: EF 55% * Going for PCI today 2.DM * Patient not currently taking any at home medications * Monitor sugar 3.HLD * Rosuvastatin 20mg PO HS 4.Noncompliance with medication * 05/13: Again had another discussion, he understands this is dangerous. * Discussed about taking medication to prevent further heart problem 4.Hx of Tobacco Abuse * Smoking cessation encouraged 5.Prophylactic Measures * DVT-Heparin * GI- Pepcid 20mg PO BID <Kevin Negrete - Last Filed: 05/14/18 15:16> Objective - Vital Signs/Intake and Output Vital Signs (last 24 hours): Temp Pulse Resp BP Pulse Ox 97.9 F 75 20 137/83 96 05/14/18 07:00 05/14/18 11:50 05/14/18 07:00 05/14/18 09:30 05/14/18 07:00 Intake and Output: 05/14/18 05/14/18 06:59 18:59 Intake Total 1140 480 Output Total 300 Balance 840 480 - Medications Medications: Current Medications Amlodipine Besylate (Norvasc) 5 mg PO DAILY [facility] Last Admin: 05/14/18 09:27 Dose: 5 mg Aspirin (Ecotrin) 81 mg PO DAILY [facility] Last Admin: 05/14/18 09:27 Dose: 81 mg Clopidogrel Bisulfate (Plavix) 75 mg PO DAILY [facility] Last Admin: 05/14/18 09:27 Dose: 75 mg Dextrose (Dextrose 50% Inj) 0 ml IV STAT PRN; Protocol PRN Reason: Hypoglycemia Protocol Dextrose (Glutose 15) 0 gm PO ONCE PRN; Protocol PRN Reason: Hypoglycemia Protocol Enoxaparin Sodium (Lovenox) 40 mg SC DAILY [facility] Last Admin: 05/14/18 09:28 Dose: Not Given Famotidine (Pepcid) 20 mg PO BID [facility] Last Admin: 05/14/18 09:27 Dose: 20 mg Glucagon (Glucagen Diagnostic Kit) 0 mg IM STAT PRN; Protocol PRN Reason: Hypoglycemia Protocol Hydralazine HCl (Apresoline) 10 mg IVP Q6H [facility] Last Admin: 05/14/18 09:29 Dose: Not Given Dextrose (Dextrose 5% In Water 1000 Ml) 1,000 mls @ 0 mls/hr IV .Q0M PRN; Protocol; Per Protocol PRN Reason: Hypoglycemia Protocol Insulin Human Regular (Novolin R) 0 unit SC ACHS [facility] PRN Reason: Protocol Last Admin: 05/14/18 11:45 Dose: Not Given Lisinopril (Zestril) 2.5 mg PO DAILY [facility] Last Admin: 05/14/18 09:27 Dose: 2.5 mg Metoprolol Succinate (Toprol Xl) 50 mg PO DAILY [facility] Last Admin: 05/14/18 09:27 Dose: 50 mg Nitroglycerin (Nitrostat Sl Tab) 0.4 mg SL PRN PRN PRN Reason: Pain, moderate (4-7) Last Admin: 05/09/18 05:21 Dose: 0.4 mg Rosuvastatin Calcium (Crestor) 20 mg PO HS [facility] Last Admin: 05/13/18 21:12 Dose: 20 mg - Labs Labs: 05/14/18 07:09 05/14/18 07:09 PT 12.3 SECONDS (9.7-12.2) H 05/14/18 07:09 INR 1.1 05/14/18 07:09 APTT 57 SECONDS (21-34) H D 05/10/18 06:02 Attending/Attestation - Attestation I have personally seen and examined this patient.: Yes I have fully participated in the care of the patient.: Yes I have reviewed all pertinent clinical information, including history, physical exam and plan: Yes Notes (Text): Medical attending: Patient was seen and examined by me, reviewed the above note by medical office receptionist and agree with the above Patient was not in any acute distress when we came and saw the patient. The patient reported no problems overnight He is pending PCI [place] [facility] [place] today thank you Kevin Negrete
[2018-05-14] MEDS: Sodium Chloride 0.9% 1,000 ML IV SCH (18:00)
--- NOTE | 2018-05-14 18:06 | CP.PCM.PN ---
Subjective - Date & Time of Evaluation Date of Evaluation: 05/14/18 Time of Evaluation: 18:00 - Subjective Subjective: Patient s/p OM1 VALERIE stent Ambulate after 9pm tonight IV hydratiion Check labs in am Plavix 75 daily for 1 year [id number], Statins, B blockers and REDDY I for life If stable can d/c home F/U PMD and Cardiology in 2 weeks Objective - Vital Signs/Intake and Output Vital Signs (last 24 hours): Temp Pulse Resp BP Pulse Ox 97.9 F 75 20 137/83 96 05/14/18 07:00 05/14/18 11:50 05/14/18 07:00 05/14/18 09:30 05/14/18 07:00 Intake and Output: 05/14/18 05/14/18 06:59 18:59 Intake Total 1140 480 Output Total 300 Balance 840 480 - Medications Medications: Current Medications Amlodipine Besylate (Norvasc) 5 mg PO DAILY [facility] Last Admin: 05/14/18 09:27 Dose: 5 mg Aspirin (Ecotrin) 81 mg PO DAILY [facility] Last Admin: 05/14/18 09:27 Dose: 81 mg Clopidogrel Bisulfate (Plavix) 75 mg PO DAILY [facility] Last Admin: 05/14/18 09:27 Dose: 75 mg Dextrose (Dextrose 50% Inj) 0 ml IV STAT PRN; Protocol PRN Reason: Hypoglycemia Protocol Dextrose (Glutose 15) 0 gm PO ONCE PRN; Protocol PRN Reason: Hypoglycemia Protocol Enoxaparin Sodium (Lovenox) 40 mg SC DAILY [facility] Last Admin: 05/14/18 09:28 Dose: Not Given Famotidine (Pepcid) 20 mg PO BID [facility] Last Admin: 05/14/18 09:27 Dose: 20 mg Glucagon (Glucagen Diagnostic Kit) 0 mg IM STAT PRN; Protocol PRN Reason: Hypoglycemia Protocol Hydralazine HCl (Apresoline) 10 mg IVP Q6H [facility] Last Admin: 05/14/18 16:03 Dose: Not Given Dextrose (Dextrose 5% In Water 1000 Ml) 1,000 mls @ 0 mls/hr IV .Q0M PRN; Protocol; Per Protocol PRN Reason: Hypoglycemia Protocol Sodium Chloride (Sodium Chloride 0.9%) 1,000 mls @ 70 mls/hr IV .[id number] [facility] Insulin Human Regular (Novolin R) 0 unit SC ACHS [facility] PRN Reason: Protocol Last Admin: 05/14/18 11:45 Dose: Not Given Lisinopril (Zestril) 2.5 mg PO DAILY [facility] Last Admin: 05/14/18 09:27 Dose: 2.5 mg Metoprolol Succinate (Toprol Xl) 50 mg PO DAILY [facility] Last Admin: 05/14/18 09:27 Dose: 50 mg Nitroglycerin (Nitrostat Sl Tab) 0.4 mg SL PRN PRN PRN Reason: Pain, moderate (4-7) Last Admin: 05/09/18 05:21 Dose: 0.4 mg Rosuvastatin Calcium (Crestor) 20 mg PO HS [facility] Last Admin: 05/13/18 21:12 Dose: 20 mg - Labs Labs: 05/14/18 07:09 05/14/18 07:09 PT 12.3 SECONDS (9.7-12.2) H 05/14/18 07:09 INR 1.1 05/14/18 07:09 APTT 57 SECONDS (21-34) H D 05/10/18 06:02
[2018-05-15] MEDS: Sodium Chloride 0.9% 1,000 ML IV SCH ×2 (02:03→09:49)
[2018-05-15 04:31] VITALS: O2SAT 97
[2018-05-15 07:10] LABS: BLOOD UREA NITROGEN 12 mg/dL (9-20); CALCIUM 8.9 mg/dl (8.6-10.4); GFR NON-AFRICAN AMERICAN > 60
[2018-05-15 07:18] LABS: HEMOGLOBIN 12.5 g/dL (12.0-18.0); MEAN CELL VOLUME 84.2 fL (80.0-94.0); MEAN CORPUSCULAR HEMOGLOBIN 28.1 pg (27.0-31.0); MEAN CORPUSCULAR HGB CONC 33.4 g/dL (33.0-37.0); MEAN PLATELET VOLUME 9.3 fL (7.2-11.7); RBC 4.45 Mil/uL (4.40-5.90); RED CELL DISTRIBUTION WIDTH 14.1 % (11.5-14.5); WHITE BLOOD COUNT 7.5 K/uL (4.8-10.8)
[2018-05-15] MEDS: (Novolin R) Insulin Human Regular 100 units/ml vial SC SCH ×2 (07:40→13:02)
[2018-05-15 08:07] VITALS: PULSE 69
[2018-05-15 08:28] VITALS: BP 115/68; TEMP 98.7
[2018-05-15] MEDS: Metoprolol Succinate 50 mg XL Tab PO SCH (09:49)
[2018-05-15] MEDS: Enoxaparin 40 mg Syringe SC SCH (09:51)
--- NOTE | 2018-05-15 11:41 | CP.PCM.DIS ---
<Shawn Renee - Last Filed: 05/15/18 15:23> Provider - Provider Date of Admission: 05/09/18 18:29 Attending physician: Kevin Negrete DO Time Spent in preparation of Discharge (in minutes): 45 Diagnosis - Discharge Diagnosis (1) NSTEMI (non-ST elevated myocardial infarction) Status: Acute (2) CAD (coronary artery disease) Status: Chronic Hospital Course - Lab Results Lab Results: Micro Results 05/11/18 18:24 Naris MRSA Culture - Final MRSA NOT DETECTED 05/09/18 18:15 Nose MRSA Culture (Admit) - Final MRSA NOT DETECTED Most Recent Lab Values WBC 7.5 K/uL (4.8-10.8) 05/15/18 06:38 RBC 4.45 Mil/uL (4.40-5.90) 05/15/18 06:38 Hgb 12.5 g/dL (12.0-18.0) 05/15/18 06:38 Hct 37.5 % (35.0-51.0) 05/15/18 06:38 MCV 84.2 fL (80.0-94.0) 05/15/18 06:38 MCH 28.1 pg (27.0-31.0) 05/15/18 06:38 MCHC 33.4 g/dL (33.0-37.0) 05/15/18 06:38 RDW 14.1 % (11.5-14.5) 05/15/18 06:38 Plt Count 229 K/uL (130-400) 05/15/18 06:38 MPV 9.3 fL (7.2-11.7) 05/15/18 06:38 Neut % (Auto) 77.1 % (50.0-75.0) H 05/12/18 08:13 Lymph % (Auto) 12.3 % (20.0-40.0) L 05/12/18 08:13 Bradley % (Auto) 9.9 % (0.0-10.0) 05/12/18 08:13 Eos % (Auto) 0.4 % (0.0-4.0) 05/12/18 08:13 Baso % (Auto) 0.3 % (0.0-2.0) 05/12/18 08:13 Neut # (Auto) 7.2 K/uL (1.8-7.0) H 05/12/18 08:13 Lymph # (Auto) 1.2 K/uL (1.0-4.3) 05/12/18 08:13 Bradley # (Auto) 0.9 K/uL (0.0-0.8) H 05/12/18 08:13 Eos # (Auto) 0.0 K/uL (0.0-0.7) 05/12/18 08:13 Baso # (Auto) 0.0 K/uL (0.0-0.2) 05/12/18 08:13 Neutrophils % (Manual) 84 % (50-75) H 05/11/18 06:34 Band Neutrophils % 4 % (0-2) H 05/10/18 06:02 Lymphocytes % (Manual) 9 % (20-40) L 05/11/18 06:34 Monocytes % (Manual) 7 % (0-10) 05/11/18 06:34 Metamyelocytes % 1 % (0-0) H 05/10/18 06:02 Platelet Estimate Normal (NORMAL) 05/11/18 06:34 Anisocytosis (manual) Slight 05/11/18 06:34 Ovalocytes Slight 05/11/18 06:34 PT 12.3 SECONDS (9.7-12.2) H 05/14/18 07:09 INR 1.1 05/14/18 07:09 APTT 57 SECONDS (21-34) H D 05/10/18 06:02 Sodium 140 mmol/L (132-148) 05/15/18 06:38 Potassium 4.4 mmol/L (3.6-5.2) 05/15/18 06:38 Chloride 100 mmol/L (98-107) 05/15/18 06:38 Carbon Dioxide 31 mmol/L (22-30) H 05/15/18 06:38 Anion Gap 13 (10-20) 05/15/18 06:38 BUN 12 mg/dL (9-20) 05/15/18 06:38 Creatinine 0.8 mg/dL (0.8-1.5) 05/15/18 06:38 Est GFR ( Amer) > 60 05/15/18 06:38 Est GFR (Non-Af Amer) > 60 05/15/18 06:38 POC Glucose (mg/dL) 87 mg/dL (65-110) 05/15/18 06:04 Random Glucose 109 mg/dL (75-110) 05/15/18 06:38 Hemoglobin A1c 6.3 % (4.2-6.5) 05/09/18 07:35 Calcium 8.9 mg/dl (8.6-10.4) 05/15/18 06:38 Phosphorus 4.1 mg/dL (2.5-4.5) 05/14/18 07:09 Magnesium 2.1 mg/dL (1.6-2.3) 05/14/18 07:09 Total Bilirubin 0.7 mg/dL (0.2-1.3) 05/14/18 07:09 AST 26 U/L (17-59) 05/14/18 07:09 ALT 48 U/L (21-72) 05/14/18 07:09 Alkaline Phosphatase 62 U/L (38-126) 05/14/18 07:09 Total Creatine Kinase 1188 U/L (55-170) H 05/09/18 14:21 CK-MB (Mass) 70.6 ng/mL (0.0-3.38) H 05/09/18 14:21 Troponin I 7.6900 ng/mL (0.00-0.120) H* 05/09/18 14:21 Total Protein 6.5 g/dL (6.3-8.3) 05/14/18 07:09 Albumin 3.8 g/dL (3.5-5.0) 05/14/18 07:09 Globulin 2.7 gm/dL (2.2-3.9) 05/14/18 07:09 Albumin/Globulin Ratio 1.4 (1.0-2.1) 05/14/18 07:09 Triglycerides 112 mg/dL (0-149) D 05/09/18 07:35 Cholesterol 226 mg/dL (0-199) H 05/09/18 07:35 LDL Cholesterol Direct 167 mg/dL (0-129) H 05/09/18 07:35 HDL Cholesterol 29 mg/dL (30-70) L 05/09/18 07:35 Free T4 0.99 ng/dL (0.78-2.19) 05/09/18 07:35 TSH 3rd Generation 1.32 mIU/L (0.46-4.68) 05/09/18 07:35 - Hospital Course Hospital Course: HPI: Patient is a 68 year old male with past medical history with a past medical history of CAD w/ 7 stents (last stent Jun 2017), non-insulin dependent diabetes , HTN and HLD presenting to the emergency room with a complaints of chest pain. The chest pain woke him up out of his sleep approximately 1 hour prior to arrival. The pain is located in the center of his chest and is sharp in nature. It radiates to the right side of his chest and made him feel short of breath. The pain is similar to previous episodes of chest pain so he decided to call 911. Denies previous h/o NC. Patient reports stopping all medications over 3 months ago. He is still smoking at least 1 pack per day. Denies fevers, chills , nausea, vomiting, diarrhea, constipation, abdominal pain, headache, vision changes, weakness, diaphoresis, numbness or tingling. PMD: Dr. Quintana PMH: CAD w/ 7 stents (last stent Jun 2017), non-insulin dependent diabetes, HTN and HLD PSH: 7 stents (last stent Jun 2017) Social: Smokes at least 1 pack per day (would not answer for how long), denies alcohol or illicit drug use Allergies: NKDA Home Meds on admission (patient states he took most medications for 3 months, then stopped some medications and now has not taken any medications for past 3 months) * amLODIPine [Norvasc] 5 mg PO DAILY * Aspirin [Ecotrin] 81 mg PO DAILY * Clopidogrel [Plavix] 75 mg PO DAILY * Lisinopril 2.5 mg PO DAILY * metFORMIN [glucOPHAGE] 500 mg PO BID * Metoprolol Succinate 50 mg PO DAILY * Rosuvastatin Calcium [Crestor] 20 mg PO DAILY Hospital Course: Patient was initally admitted to [facility] on telemetry for acute chest pain. At the time of initial presentation it became clear that the patient had not been compliant in taking any of his medications at home. Patient was restarted on his home medications as listed in the patient's HPI, and cardiology was consulted (Dr. Chandler.) CXR reviewed (05/09/2018) - No acute disease EKG (05/09/2018) - SB at 54 bpm, normal axis, T wave inversion V2-V6 c/w changes seen on prior EKGs - 2 repeat EKGs completed - both showed no changes Trop x 3 (05/09/2018) - <0.0120, 0.8980, 7.6900 CKMB x 3 (05/09/2018) - 1.12, 17.9, 70.6 Total CK (05/09/2018) - 132, 336, 1188 Lipid panel (05/09/2018) - TGL 112, Chol 226, LDL 167 and HDL 29 HgbA1C (05/09/2018) - 6.3 TSH and Free T4 (05/09/2018) - 1.32 and 0.9 Patient was upgraded to ICU status following this acute coronary event (NSTEMI). ECHO completed 05/09/2018 - LVEF - 65-70% with mild concentric LVH, mild Left atrial dilation, ad sclerotic trileaflet aortic valve Cardiology (Dr. Chandler) - 05/09/2018 - advised pulmonology consult for outpatient repeat sleep study and transfer to ICU, pending cardiac catheterization on 2017. Cardiac catheterization completed by Dr. Chandler on 05/10/2018 - - L main - Patent - LAD - Mid stent 20% ISR, distal stent patent - L Cx - stent patent, OM 1 99% stenosis - RCA - Dominant and patent, Small PLV 80% stenosis - LV - EF 55%, EDP 18 Patient discharged from ICU on 05/12/2018. Per cardiology recommendation - Patient transferred to [place] on 05/14/2018 for PCI. Post PCI, Dr. Chandler advised that patient stay on Plavix 75 mg PO qd for 1 year and remain on ASA 81 mg PO, Statin, Beta-theresa and REDDY-I for life. During hospital stay he has received Lovenox 40 mg sc for DVT prophylaxis Other medications include: ASA 81 mg PO and Plavix 75 mg PO (to be continued post stent placement) For his chronic HTN - Amlodipine 5 mg PO, Metoprolol Succinate 50 mg PO, Lisinopril 2.5 mg PO and Hydralazine 10 mg IVP q6h (hold if SBP < 120) For his hyperlipidemia - Crestor 20 mg PO HS S/p PCI patient is feeling well on 05/15/2018. He denies chest pain, shortness of breath, dyspnea on exertion, dizziness, palpitations, fever, chills, abdominal pain or increased fatigue. He would like to go home. Plan: 1) Follow up with Dr. Quintana (PMD) for outpatient evaluation 2) Follow up with Dr. Chandler (Cardiology) in 2 weeks - call the office to schedule an appointment: [phone] 2) Advised patient in importance of smoking cessation 3) Follow up with Dr. Marrero for outpatient pulmonary evaluation and sleep study ) 4) Continue taking medications prescribed including: - Plavix 75 mg PO qd - ASA 81 mg PO qd - Lisinopril 2.5 mg PO qd - Amlodipine 5 mg PO qd - Metoprolol Succinate 50 mg PO qd - Simvastatin 20 mg PO qd Discharge Exam - Head Exam Head Exam: ATRAUMATIC, NORMAL INSPECTION, NORMOCEPHALIC - Eye Exam Eye Exam: EOMI, Normal appearance Pupil Exam: NORMAL ACCOMODATION, PERRL - Respiratory Exam Respiratory Exam: NORMAL BREATHING PATTERN, UNREMARKABLE - Cardiovascular Exam Cardiovascular Exam: REGULAR RHYTHM, +S1, +S2 - GI/Abdominal Exam GI & Abdominal Exam: Normal Bowel Sounds, Unremarkable. absent: Firm, Guarding , Rebound, Tenderness - Extremities Exam Extremities exam: normal inspection - Neurological Exam Neurological exam: Alert, CN II-XII Intact, Normal Gait, Oriented x3 - Skin Skin Exam: Dry, Intact, Normal Color, Warm Discharge Plan - Discharge Medications Prescriptions: amLODIPine [Norvasc] 5 mg PO DAILY #30 tab Aspirin [Ecotrin] 81 mg PO DAILY #30 tabec Clopidogrel [Plavix] 75 mg PO DAILY #30 tab Lisinopril 2.5 mg PO DAILY #30 tablet Metoprolol Succinate XL [Toprol XL] 50 mg PO DAILY #30 tab - Follow Up Plan Condition: FAIR Disposition: HOME/ ROUTINE Instructions: Heart Attack, Coronary Heart Disease, Coronary Stenting, Heart Healthy Diet, Coronary Stenting (DC), Diabetes Diet , Chest Pain (DC), Low Salt Diet, Amlodipine, Aspirin, Clopidogrel, Lisinopril, Metoprolol, Nitroglycerin Additional Instructions: Patient is cleared for discharge per Dr. Negrete. Plan: 1) Follow up with Dr. Quintana (PMD) for outpatient evaluation 2) Follow up with Dr. Chandler (Cardiology) in 2 weeks - call the office to schedule an appointment: [phone] 2) Advised patient in importance of smoking cessation 3) Follow up with Dr. Marrero for outpatient pulmonary evaluation and sleep study ) 4) Activity as tolerated. 5) Continue taking medications prescribed including: Norvasc 5mg by mouth daily Aspirin 81mg by mouth daily Plavix 75mg by mouth daily Lisinopril 2.5 mg by mouth daily Toprol 50 by mouth daily Crestor 20 mg by mouth at bedtime Nitroglycerin .4mg tablet by mouth as needed for cardiac-related chest pain Please return to the ER if symptoms reoccur or worsen. Referrals: Milan Marrero MD [Staff Provider] - Kwaku Chandler MD [Staff Provider] - 2 Weeks Zeke Quintana MD [Staff Provider] - 1 Week <Kevin Negrete - Last Filed: 05/15/18 16:38> Provider - Provider Date of Admission: 05/09/18 18:29 Attending physician: Kevin Negrete DO Hospital Course - Lab Results Lab Results: Micro Results 05/11/18 18:24 Naris MRSA Culture - Final MRSA NOT DETECTED 05/09/18 18:15 Nose MRSA Culture (Admit) - Final MRSA NOT DETECTED Most Recent Lab Values WBC 7.5 K/uL (4.8-10.8) 05/15/18 06:38 RBC 4.45 Mil/uL (4.40-5.90) 05/15/18 06:38 Hgb 12.5 g/dL (12.0-18.0) 05/15/18 06:38 Hct 37.5 % (35.0-51.0) 05/15/18 06:38 MCV 84.2 fL (80.0-94.0) 05/15/18 06:38 MCH 28.1 pg (27.0-31.0) 05/15/18 06:38 MCHC 33.4 g/dL (33.0-37.0) 05/15/18 06:38 RDW 14.1 % (11.5-14.5) 05/15/18 06:38 Plt Count 229 K/uL (130-400) 05/15/18 06:38 MPV 9.3 fL (7.2-11.7) 05/15/18 06:38 Neut % (Auto) 77.1 % (50.0-75.0) H 05/12/18 08:13 Lymph % (Auto) 12.3 % (20.0-40.0) L 05/12/18 08:13 Bradley % (Auto) 9.9 % (0.0-10.0) 05/12/18 08:13 Eos % (Auto) 0.4 % (0.0-4.0) 05/12/18 08:13 Baso % (Auto) 0.3 % (0.0-2.0) 05/12/18 08:13 Neut # (Auto) 7.2 K/uL (1.8-7.0) H 05/12/18 08:13 Lymph # (Auto) 1.2 K/uL (1.0-4.3) 05/12/18 08:13 Bradley # (Auto) 0.9 K/uL (0.0-0.8) H 05/12/18 08:13 Eos # (Auto) 0.0 K/uL (0.0-0.7) 05/12/18 08:13 Baso # (Auto) 0.0 K/uL (0.0-0.2) 05/12/18 08:13 Neutrophils % (Manual) 84 % (50-75) H 05/11/18 06:34 Band Neutrophils % 4 % (0-2) H 05/10/18 06:02 Lymphocytes % (Manual) 9 % (20-40) L 05/11/18 06:34 Monocytes % (Manual) 7 % (0-10) 05/11/18 06:34 Metamyelocytes % 1 % (0-0) H 05/10/18 06:02 Platelet Estimate Normal (NORMAL) 05/11/18 06:34 Anisocytosis (manual) Slight 05/11/18 06:34 Ovalocytes Slight 05/11/18 06:34 PT 12.3 SECONDS (9.7-12.2) H 05/14/18 07:09 INR 1.1 05/14/18 07:09 APTT 57 SECONDS (21-34) H D 05/10/18 06:02 Sodium 140 mmol/L (132-148) 05/15/18 06:38 Potassium 4.4 mmol/L (3.6-5.2) 05/15/18 06:38 Chloride 100 mmol/L (98-107) 05/15/18 06:38 Carbon Dioxide 31 mmol/L (22-30) H 05/15/18 06:38 Anion Gap 13 (10-20) 05/15/18 06:38 BUN 12 mg/dL (9-20) 05/15/18 06:38 Creatinine 0.8 mg/dL (0.8-1.5) 05/15/18 06:38 Est GFR ( Amer) > 60 09 06:38 Est GFR (Non-Af Amer) > 60 05/15/18 06:38 POC Glucose (mg/dL) 87 mg/dL (65-110) 05/15/18 06:04 Random Glucose 109 mg/dL (75-110) 05/15/18 06:38 Hemoglobin A1c 6.3 % (4.2-6.5) 05/09/18 07:35 Calcium 8.9 mg/dl (8.6-10.4) 05/15/18 06:38 Phosphorus 4.1 mg/dL (2.5-4.5) 05/14/18 07:09 Magnesium 2.1 mg/dL (1.6-2.3) 05/14/18 07:09 Total Bilirubin 0.7 mg/dL (0.2-1.3) 05/14/18 07:09 AST 26 U/L (17-59) 05/14/18 07:09 ALT 48 U/L (21-72) 05/14/18 07:09 Alkaline Phosphatase 62 U/L (38-126) 05/14/18 07:09 Total Creatine Kinase 1188 U/L (55-170) H 05/09/18 14:21 CK-MB (Mass) 70.6 ng/mL (0.0-3.38) H 05/09/18 14:21 Troponin I 7.6900 ng/mL (0.00-0.120) H* 05/09/18 14:21 Total Protein 6.5 g/dL (6.3-8.3) 05/14/18 07:09 Albumin 3.8 g/dL (3.5-5.0) 05/14/18 07:09 Globulin 2.7 gm/dL (2.2-3.9) 05/14/18 07:09 Albumin/Globulin Ratio 1.4 (1.0-2.1) 05/14/18 07:09 Triglycerides 112 mg/dL (0-149) D 05/09/18 07:35 Cholesterol 226 mg/dL (0-199) H 05/09/18 07:35 LDL Cholesterol Direct 167 mg/dL (0-129) H 05/09/18 07:35 HDL Cholesterol 29 mg/dL (30-70) L 05/09/18 07:35 Free T4 0.99 ng/dL (0.78-2.19) 05/09/18 07:35 TSH 3rd Generation 1.32 mIU/L (0.46-4.68) 05/09/18 07:35 Attending/Attestation - Attestation I have personally seen and examined this patient.: Yes I have fully participated in the care of the patient.: Yes I have reviewed all pertinent clinical information, including history, physical exam and plan: Yes Notes (Text): 05/15/18 16:38 Medical attending: Patient was seen and examined by me, agrees the above note by lpn or medical assistant. The patient is status post stent placement to the obtuse marginal we believe that the patient now has either 6 or 7 stents. The patient himself is not sure, and we don't have a complete confirmation as to how many stents he's had Regardless I explained to him that he has to take his medication in particular the Plavix to prevent stent closure. As mentioned previously the patient reported to us that he was not taking his medication when he came in and that he was actively smoking We also had a conversation about him continuing smoking as well We made it very clear to the patient that were concerned about his lifestyle of smoking and not taking medication was contributing to will cardiac problems. We explained to him that in the future he could have a very bad heart attack or stroke that could leave him significantly disabled or possibly worse I hope you'll take advice and make these lifestyle changes and also taking his medication. thank you Kevin Negrete
--- NOTE | 2018-05-15 13:41 | CP.PCM.PN ---
<Wallace Zapata E - Last Filed: 05/15/18 13:37> Subjective - Date & Time of Evaluation Date of Evaluation: 05/15/18 Time of Evaluation: 08:05 - Subjective Subjective: Cardiology progress note ( Dr. Chandler's service) Patient was seen and examined at bedside. Patient is s/p ESTELLA VALERIE stent POD #1. Patient states that he is doing well with no acute or no new issues. Patient denies chest pain, palpitations, SOB, nausea, vomiting, dizziness and lightheadedness. Patient is ambulating without any difficulties. During the encounter, patient was encouraged to continue to use his medications as prescribed due to significant CAD. Objective - Vital Signs/Intake and Output Vital Signs (last 24 hours): Temp Pulse Resp BP Pulse Ox 98.7 F 69 20 115/68 97 05/15/18 07:00 05/15/18 08:00 05/15/18 07:00 05/15/18 07:00 05/15/18 07:00 Intake and Output: 05/15/18 05/15/18 06:59 18:59 Intake Total 485 Output Total 600 Balance -115 - Medications Medications: Current Medications Amlodipine Besylate (Norvasc) 5 mg PO DAILY [facility] Last Admin: 05/15/18 09:47 Dose: Not Given Aspirin (Ecotrin) 81 mg PO DAILY [facility] Last Admin: 05/15/18 09:51 Dose: 81 mg Clopidogrel Bisulfate (Plavix) 75 mg PO DAILY [facility] Last Admin: 05/15/18 09:51 Dose: 75 mg Dextrose (Dextrose 50% Inj) 0 ml IV STAT PRN; Protocol PRN Reason: Hypoglycemia Protocol Dextrose (Glutose 15) 0 gm PO ONCE PRN; Protocol PRN Reason: Hypoglycemia Protocol Enoxaparin Sodium (Lovenox) 40 mg SC DAILY [facility] Last Admin: 05/15/18 09:51 Dose: 40 mg Famotidine (Pepcid) 20 mg PO BID [facility] Last Admin: 05/15/18 09:51 Dose: 20 mg Glucagon (Glucagen Diagnostic Kit) 0 mg IM STAT PRN; Protocol PRN Reason: Hypoglycemia Protocol Hydralazine HCl (Apresoline) 10 mg IVP Q6H [facility] Last Admin: 05/15/18 09:47 Dose: Not Given Dextrose (Dextrose 5% In Water 1000 Ml) 1,000 mls @ 0 mls/hr IV .Q0M PRN; Protocol; Per Protocol PRN Reason: Hypoglycemia Protocol Sodium Chloride (Sodium Chloride 0.9%) 1,000 mls @ 70 mls/hr IV .[id number] [facility] Last Admin: 05/15/18 09:49 Dose: Not Given Insulin Human Regular (Novolin R) 0 unit SC ACHS MARGOT PRN Reason: Protocol Last Admin: 05/15/18 13:02 Dose: Not Given Lisinopril (Zestril) 2.5 mg PO DAILY [facility] Last Admin: 05/15/18 09:50 Dose: Not Given Metoprolol Succinate (Toprol Xl) 50 mg PO DAILY [facility] Last Admin: 05/15/18 09:49 Dose: Not Given Nitroglycerin (Nitrostat Sl Tab) 0.4 mg SL PRN PRN PRN Reason: Pain, moderate (4-7) Last Admin: 05/09/18 05:21 Dose: 0.4 mg Rosuvastatin Calcium (Crestor) 20 mg PO HS [facility] Last Admin: 05/14/18 22:30 Dose: Not Given - Labs Labs: 05/15/18 06:38 05/15/18 06:38 PT 12.3 SECONDS (9.7-12.2) H 05/14/18 07:09 INR 1.1 05/14/18 07:09 APTT 57 SECONDS (21-34) H D 05/10/18 06:02 - Constitutional Appears: Well, No Acute Distress - Head Exam Head Exam: ATRAUMATIC, NORMAL INSPECTION - Eye Exam Eye Exam: EOMI, Normal appearance - ENT Exam ENT Exam: Mucous Membranes Moist - Respiratory Exam Respiratory Exam: Clear to Ausculation Bilateral, NORMAL BREATHING PATTERN. absent: Rhonchi, Wheezes - Cardiovascular Exam Cardiovascular Exam: REGULAR RHYTHM, +S1, +S2 - GI/Abdominal Exam GI & Abdominal Exam: Soft, Normal Bowel Sounds. absent: Distended, Firm, Guarding, Rigid, Tenderness - Extremities Exam Extremities Exam: Normal Inspection. absent: Calf Tenderness, Pedal Edema - Neurological Exam Neurological Exam: Alert, Awake, Normal Gait, Oriented x3 - Psychiatric Exam Psychiatric exam: Normal Affect - Skin Skin Exam: Normal Color Assessment and Plan (1) NSTEMI (non-ST elevated myocardial infarction) Assessment & Plan: On admission: EKG: NSR, T-wave abnormality V3, V4 and V5/V6 MARICEL panel: <0.0120--> 0.8980--->7.6900 Lipid panel: - TGL: 112, Chol:226, LDL:167 and HDL: 29 HgbA1C: 6.3 TSH and Free T4: 1.32 and 0.9 06/24/17: Cardiac catherization: Left circumflex artery stent restenosis, ballon -angioplasty and drug-eluting stent placement. Prior LAD stent was patent and LV60% 05/12/18: Left main coronary artery is patent. Mid LAD has in-stent 20% to 30% stenosis. Distal LAS stent is patient. Diagonal branches are patient. Prior stent in the left circumflex artery is patient. Obtuse marginal-1 artery has 99 % stenosis. Distal left circumflex has diffuse disease. Right coronary artery is dominant. Right coronary artery is dominant. Right coronary artery, PDA and PLV branches are patent LV ejection fraction is approximately 60%. No wall motion abnormality noted. No gradient across the aortic valve. Patient had ESTELLA VALERIE stent placed at [facility]. Patient is stable for discharge today. Patient is to continue Plavix 75mg PO daily for a year and then Beta theresa, ASA 81mg PO daily, statin and REDDY-i for life Patient is to follow up with Dr. Chandler in 2 weeks. All plans and management discussed with Dr. Chandler Status: Acute <Kwaku Chandler - Last Filed: 05/15/18 21:55> Objective - Vital Signs/Intake and Output Vital Signs (last 24 hours): Temp Pulse Resp BP Pulse Ox 98.7 F 69 20 115/68 97 05/15/18 07:00 05/15/18 08:00 05/15/18 07:00 05/15/18 07:00 05/15/18 07:00 - Labs Labs: 05/15/18 06:38 05/15/18 06:38 PT 12.3 SECONDS (9.7-12.2) H 05/14/18 07:09 INR 1.1 05/14/18 07:09 APTT 57 SECONDS (21-34) H D 05/10/18 06:02 Assessment and Plan - Assessment and Plan (Free Text) Assessment: Patient seen and evaluated personally by me. Plan of care d/w the medical scheduler and as documented
== END 2018-05-15 13:00 | disposition home or self-care (01) | DRG 247 ==
LOC: C.ER 23:49 → C.6T 05-09 03:25 → C.9I 05-09 18:00 → OBSVTOIN 05-09 18:29 → C.6T 05-11 19:20
PROVIDERS: ADMIT Hospitalist; ATTEND Hospitalist
PROC: 4A023N7 Measurement of Cardiac Sampling and Pressure, Left Heart, Percutaneous Approach (ICD-10-PCS; principal; 2018-05-12)
PROC: B2151ZZ Fluoroscopy of Left Heart using Low Osmolar Contrast (ICD-10-PCS; 2018-05-12)
PROC: B2111ZZ Fluoroscopy of Multiple Coronary Arteries using Low Osmolar Contrast (ICD-10-PCS; 2018-05-12)
PROC: 027034Z Dilation of Coronary Artery, One Artery with Drug-eluting Intraluminal Device, Percutaneous Approach (ICD-10-PCS; 2018-05-14)
DX: I21.4 Non-ST elevation (NSTEMI) myocardial infarction (principal); I25.110 Atherosclerotic heart disease of native coronary artery with unstable angina pectoris; I10 Essential (primary) hypertension; E11.9 Type 2 diabetes mellitus without complications; E78.5 Hyperlipidemia, unspecified; E66.9 Obesity, unspecified; F17.210 Nicotine dependence, cigarettes, uncomplicated; Z95.5 Presence of coronary angioplasty implant and graft; Z79.02 Long term (current) use of antithrombotics/antiplatelets; Z79.82 Long term (current) use of aspirin; Z79.84 Long term (current) use of oral hypoglycemic drugs; Z91.11 Patient's noncompliance with dietary regimen; Z91.14 Patient's other noncompliance with medication regimen; Z68.38 Body mass index [BMI] 38.0-38.9, adult